=== PATIENT | female | born 1975 | race Caucasian/White ===

== ENCOUNTER → 2019-09-17 13:10 | Outpatient (BNVA) | payer MEDICAID, SELFPAY | PROVIDERS: Family Provider Family Medicine; PCP Family Medicine; Visit Provider Nurse Practitioner Psychiatric/Mental Health | DX: F33.2 Major depressive disorder, recurrent severe without psychotic features (principal); F41.1 Generalized anxiety disorder; F43.12 Post-traumatic stress disorder, chronic; F42.4 Excoriation (skin-picking) disorder; F42.9 Obsessive-compulsive disorder, unspecified | CPT/HCPCS: 99214 ==

== ENCOUNTER → 2019-10-16 14:43 | Outpatient (BNVA) | payer MEDICAID, SELFPAY | PROVIDERS: Family Provider Family Medicine; PCP Family Medicine; Visit Provider Nurse Practitioner Psychiatric/Mental Health | DX: F33.2 Major depressive disorder, recurrent severe without psychotic features (principal); F41.1 Generalized anxiety disorder; F43.12 Post-traumatic stress disorder, chronic; F42.4 Excoriation (skin-picking) disorder; F42.9 Obsessive-compulsive disorder, unspecified | CPT/HCPCS: 99214 ==

== ENCOUNTER → 2019-10-21 13:38 | Outpatient (BNVA) | payer MEDICAID, SELFPAY | PROVIDERS: Family Provider Family Medicine; PCP Family Medicine; Visit Provider Counselor Professional | DX: F42.9 Obsessive-compulsive disorder, unspecified (principal); F43.12 Post-traumatic stress disorder, chronic; F41.1 Generalized anxiety disorder; F33.2 Major depressive disorder, recurrent severe without psychotic features; F42.4 Excoriation (skin-picking) disorder | CPT/HCPCS: 90834 ==

== ENCOUNTER → 2019-11-13 08:20 | Outpatient (BNVA) | payer MEDICAID, SELFPAY | PROVIDERS: Family Provider Family Medicine; PCP Family Medicine; Visit Provider Nurse Practitioner Psychiatric/Mental Health | DX: F33.2 Major depressive disorder, recurrent severe without psychotic features (principal); F41.1 Generalized anxiety disorder; F43.12 Post-traumatic stress disorder, chronic; F42.4 Excoriation (skin-picking) disorder; F42.9 Obsessive-compulsive disorder, unspecified | CPT/HCPCS: 99214 ==

== ENCOUNTER → 2019-11-27 11:54 | Outpatient (BNVA) | payer MEDICAID, SELFPAY | PROVIDERS: Family Provider Family Medicine; PCP Family Medicine; Visit Provider Counselor Professional | DX: F42.9 Obsessive-compulsive disorder, unspecified (principal); F42.4 Excoriation (skin-picking) disorder; F43.12 Post-traumatic stress disorder, chronic; F41.1 Generalized anxiety disorder; F33.2 Major depressive disorder, recurrent severe without psychotic features | CPT/HCPCS: 90834 ==

== ENCOUNTER → 2019-12-04 08:18 | Outpatient (BNVA) | payer MEDICAID, SELFPAY | PROVIDERS: Family Provider Family Medicine; PCP Family Medicine; Visit Provider Nurse Practitioner Psychiatric/Mental Health | DX: F33.2 Major depressive disorder, recurrent severe without psychotic features (principal); F41.1 Generalized anxiety disorder; F43.12 Post-traumatic stress disorder, chronic; F42.4 Excoriation (skin-picking) disorder; F42.9 Obsessive-compulsive disorder, unspecified | CPT/HCPCS: 99214 ==

== ENCOUNTER → 2019-12-08 08:18 | Outpatient (BNVA) | payer MEDICAID, SELFPAY | PROVIDERS: Family Provider Family Medicine; PCP Family Medicine; Visit Provider Counselor Professional | DX: F42.9 Obsessive-compulsive disorder, unspecified (principal); F42.4 Excoriation (skin-picking) disorder; F43.12 Post-traumatic stress disorder, chronic; F41.1 Generalized anxiety disorder; F33.2 Major depressive disorder, recurrent severe without psychotic features | CPT/HCPCS: 90834 ==

== ENCOUNTER → 2020-02-04 07:32 | Outpatient (BNVA) | payer MEDICAID, SELFPAY | PROVIDERS: Family Provider Family Medicine; PCP Family Medicine; Visit Provider Nurse Practitioner Psychiatric/Mental Health | DX: F33.2 Major depressive disorder, recurrent severe without psychotic features (principal); F41.1 Generalized anxiety disorder; F43.12 Post-traumatic stress disorder, chronic; F42.4 Excoriation (skin-picking) disorder; F42.9 Obsessive-compulsive disorder, unspecified | CPT/HCPCS: 99214 ==

== ENCOUNTER → 2020-02-08 08:14 | Outpatient (BNVA) | payer MEDICAID, SELFPAY | PROVIDERS: Family Provider Family Medicine; PCP Family Medicine; Visit Provider Counselor Professional | DX: F42.9 Obsessive-compulsive disorder, unspecified (principal); F42.4 Excoriation (skin-picking) disorder; F33.2 Major depressive disorder, recurrent severe without psychotic features; F41.1 Generalized anxiety disorder; F43.12 Post-traumatic stress disorder, chronic | CPT/HCPCS: 90834 ==

== ENCOUNTER → 2020-03-03 14:00 | Outpatient (BNVA) | payer MEDICAID, SELFPAY | PROVIDERS: Family Provider Family Medicine; PCP Family Medicine; Visit Provider Counselor Professional | DX: F42.9 Obsessive-compulsive disorder, unspecified (principal); F42.4 Excoriation (skin-picking) disorder; F43.12 Post-traumatic stress disorder, chronic; F41.1 Generalized anxiety disorder; F33.2 Major depressive disorder, recurrent severe without psychotic features | CPT/HCPCS: 90834 ==

== ENCOUNTER → 2020-03-07 07:41 | Outpatient (BNVA) | payer MEDICAID, SELFPAY | PROVIDERS: Family Provider Family Medicine; PCP Family Medicine; Visit Provider Nurse Practitioner Psychiatric/Mental Health | DX: F42.9 Obsessive-compulsive disorder, unspecified (principal); F43.12 Post-traumatic stress disorder, chronic; F33.2 Major depressive disorder, recurrent severe without psychotic features; F41.1 Generalized anxiety disorder; F42.4 Excoriation (skin-picking) disorder | CPT/HCPCS: 99214 ==

== ENCOUNTER → 2020-03-10 08:53 | Outpatient (BNVA) | payer MEDICAID, SELFPAY | PROVIDERS: Family Provider Family Medicine; PCP Family Medicine; Visit Provider Counselor Professional | DX: F33.2 Major depressive disorder, recurrent severe without psychotic features (principal); F41.1 Generalized anxiety disorder; F43.12 Post-traumatic stress disorder, chronic; F42.4 Excoriation (skin-picking) disorder; F42.9 Obsessive-compulsive disorder, unspecified | CPT/HCPCS: 90834 ==

== ENCOUNTER → 2020-03-31 08:28 | Outpatient (BNVA) | payer MEDICAID, SELFPAY | PROVIDERS: Family Provider Family Medicine; PCP Family Medicine; Visit Provider Nurse Practitioner Psychiatric/Mental Health | DX: F33.2 Major depressive disorder, recurrent severe without psychotic features (principal); F41.1 Generalized anxiety disorder; F43.12 Post-traumatic stress disorder, chronic; F42.4 Excoriation (skin-picking) disorder; F42.9 Obsessive-compulsive disorder, unspecified | CPT/HCPCS: 99214 ==

== ENCOUNTER → 2020-04-11 10:19 | Outpatient (BNVA) | payer MEDICAID, SELFPAY | PROVIDERS: Family Provider Family Medicine; PCP Family Medicine; Visit Provider Counselor Professional | DX: F42.9 Obsessive-compulsive disorder, unspecified (principal); F42.4 Excoriation (skin-picking) disorder; F43.12 Post-traumatic stress disorder, chronic; F41.1 Generalized anxiety disorder; F33.2 Major depressive disorder, recurrent severe without psychotic features | CPT/HCPCS: 90834 ==

== ENCOUNTER → 2020-05-12 07:44 | Outpatient (BNVA) | payer MEDICAID, SELFPAY | PROVIDERS: Family Provider Family Medicine; PCP Family Medicine; Visit Provider Counselor Professional | DX: F42.9 Obsessive-compulsive disorder, unspecified (principal); F42.4 Excoriation (skin-picking) disorder; F43.12 Post-traumatic stress disorder, chronic; F41.1 Generalized anxiety disorder; F33.2 Major depressive disorder, recurrent severe without psychotic features | CPT/HCPCS: 90834 ==

== ENCOUNTER → 2020-05-17 13:19 | Outpatient (BNVA) | payer OTHER, SELFPAY | PROVIDERS: Family Provider Family Medicine; PCP Family Medicine; Visit Provider Nurse Practitioner Psychiatric/Mental Health | DX: F33.2 Major depressive disorder, recurrent severe without psychotic features (principal); Z79.899 Other long term (current) drug therapy | CPT/HCPCS: 80061; 83036 ==

== ENCOUNTER → 2020-05-19 08:12 | Outpatient (BNVA) | payer MEDICAID, SELFPAY ==
[2020-05-18 09:33] VITALS: BP 109/69; BMI 44.5
== END ==
PROVIDERS: Family Provider Family Medicine; PCP Family Medicine; Visit Provider Nurse Practitioner Psychiatric/Mental Health
DX: F33.2 Major depressive disorder, recurrent severe without psychotic features (principal); F41.1 Generalized anxiety disorder; F42.4 Excoriation (skin-picking) disorder; F42.9 Obsessive-compulsive disorder, unspecified; F43.12 Post-traumatic stress disorder, chronic
CPT/HCPCS: 99214

== ENCOUNTER → 2020-06-30 08:18 | Outpatient (BNVA) | payer MEDICAID, SELFPAY ==
[2020-05-18 09:33] VITALS: BP 109/69; BMI 44.5
== END ==
PROVIDERS: Family Provider Family Medicine; PCP Family Medicine; Visit Provider Nurse Practitioner Psychiatric/Mental Health
DX: F33.2 Major depressive disorder, recurrent severe without psychotic features (principal); F41.1 Generalized anxiety disorder; F43.12 Post-traumatic stress disorder, chronic; F42.4 Excoriation (skin-picking) disorder; F42.9 Obsessive-compulsive disorder, unspecified
CPT/HCPCS: 99214

== ENCOUNTER → 2020-07-28 07:49 | Outpatient (BNVA) | payer MEDICAID, SELFPAY ==
[2020-05-18 09:33] VITALS: BP 109/69; BMI 44.5
== END ==
PROVIDERS: Family Provider Family Medicine; PCP Family Medicine; Visit Provider Counselor Professional
DX: F42.9 Obsessive-compulsive disorder, unspecified (principal); F43.12 Post-traumatic stress disorder, chronic; F41.1 Generalized anxiety disorder; F33.2 Major depressive disorder, recurrent severe without psychotic features
CPT/HCPCS: 90834

== ENCOUNTER → 2020-07-29 09:04 | Outpatient (BNVA) | payer MEDICAID, SELFPAY ==
[2020-05-18 09:33] VITALS: BP 109/69; BMI 44.5
== END ==
PROVIDERS: Family Provider Family Medicine; PCP Family Medicine; Visit Provider Nurse Practitioner Psychiatric/Mental Health
DX: F33.2 Major depressive disorder, recurrent severe without psychotic features (principal); F42.9 Obsessive-compulsive disorder, unspecified; F43.12 Post-traumatic stress disorder, chronic; F42.4 Excoriation (skin-picking) disorder; F41.1 Generalized anxiety disorder
CPT/HCPCS: 99213

== ENCOUNTER → 2020-09-01 10:12 | Outpatient (BNVA) | payer MEDICAID, SELFPAY ==
[2020-05-18 09:33] VITALS: BP 109/69; BMI 44.5
== END ==
PROVIDERS: Family Provider Family Medicine; PCP Family Medicine; Visit Provider Nurse Practitioner Psychiatric/Mental Health
DX: F33.2 Major depressive disorder, recurrent severe without psychotic features (principal); F42.9 Obsessive-compulsive disorder, unspecified; F43.12 Post-traumatic stress disorder, chronic; F42.4 Excoriation (skin-picking) disorder; F41.1 Generalized anxiety disorder
CPT/HCPCS: 99213

== ENCOUNTER → 2020-09-02 09:38 | Outpatient (BNVA) | payer MEDICAID, SELFPAY ==
[2020-05-18 09:33] VITALS: BP 109/69; BMI 44.5
== END ==
PROVIDERS: Family Provider Family Medicine; PCP Family Medicine; Visit Provider Counselor Professional
DX: F42.9 Obsessive-compulsive disorder, unspecified (principal); F42.4 Excoriation (skin-picking) disorder; F43.12 Post-traumatic stress disorder, chronic; F41.1 Generalized anxiety disorder; F33.2 Major depressive disorder, recurrent severe without psychotic features
CPT/HCPCS: 90834

== ENCOUNTER → 2020-10-06 07:59 | Outpatient (BNVA) | payer MEDICAID, SELFPAY ==
[2020-05-18 09:33] VITALS: BP 109/69; BMI 44.5
== END ==
PROVIDERS: Family Provider Family Medicine; PCP Family Medicine; Visit Provider Nurse Practitioner Psychiatric/Mental Health
DX: F33.2 Major depressive disorder, recurrent severe without psychotic features (principal); F42.9 Obsessive-compulsive disorder, unspecified; F43.12 Post-traumatic stress disorder, chronic; F42.4 Excoriation (skin-picking) disorder; F41.1 Generalized anxiety disorder
CPT/HCPCS: 99214

== ENCOUNTER → 2020-10-13 14:56 | Outpatient (BNVA) | payer MEDICAID, SELFPAY ==
[2020-05-18 09:33] VITALS: BP 109/69; BMI 44.5
== END ==
PROVIDERS: Family Provider Family Medicine; PCP Family Medicine; Visit Provider Counselor Professional
DX: F42.9 Obsessive-compulsive disorder, unspecified (principal); F42.4 Excoriation (skin-picking) disorder; F43.12 Post-traumatic stress disorder, chronic; F41.1 Generalized anxiety disorder; F33.2 Major depressive disorder, recurrent severe without psychotic features
CPT/HCPCS: 90834

== ENCOUNTER → 2020-10-20 12:43 | Outpatient (BNVA) | payer MEDICAID, SELFPAY ==
[2020-05-18 09:33] VITALS: BP 109/69; BMI 44.5
== END ==
PROVIDERS: Family Provider Family Medicine; PCP Family Medicine; Visit Provider Counselor Professional
DX: F42.9 Obsessive-compulsive disorder, unspecified (principal); F42.4 Excoriation (skin-picking) disorder; F43.12 Post-traumatic stress disorder, chronic; F41.1 Generalized anxiety disorder; F33.2 Major depressive disorder, recurrent severe without psychotic features
CPT/HCPCS: 90834

== ENCOUNTER → 2020-10-27 14:47 | Outpatient (BNVA) | payer MEDICAID, SELFPAY ==
[2020-05-18 09:33] VITALS: BP 109/69; BMI 44.5
== END ==
PROVIDERS: Family Provider Family Medicine; PCP Family Medicine; Visit Provider Counselor Professional
DX: F42.9 Obsessive-compulsive disorder, unspecified (principal); F43.12 Post-traumatic stress disorder, chronic; F41.1 Generalized anxiety disorder; F33.2 Major depressive disorder, recurrent severe without psychotic features
CPT/HCPCS: 90834

== ENCOUNTER → 2020-11-10 13:42 | Outpatient (BNVA) | payer MEDICAID, SELFPAY ==
[2020-05-18 09:33] VITALS: BP 109/69; BMI 44.5
== END ==
PROVIDERS: Family Provider Family Medicine; PCP Family Medicine; Visit Provider Counselor Professional
DX: F42.9 Obsessive-compulsive disorder, unspecified (principal); F42.4 Excoriation (skin-picking) disorder; F43.12 Post-traumatic stress disorder, chronic; F41.1 Generalized anxiety disorder; F33.2 Major depressive disorder, recurrent severe without psychotic features
CPT/HCPCS: 90834

== ENCOUNTER → 2020-11-17 13:49 | Outpatient (BNVA) | payer MEDICAID, SELFPAY ==
[2020-05-18 09:33] VITALS: BP 109/69; BMI 44.5
== END ==
PROVIDERS: Family Provider Family Medicine; PCP Family Medicine; Visit Provider Counselor Professional
DX: F42.9 Obsessive-compulsive disorder, unspecified (principal); F42.4 Excoriation (skin-picking) disorder; F43.12 Post-traumatic stress disorder, chronic; F41.1 Generalized anxiety disorder; F33.2 Major depressive disorder, recurrent severe without psychotic features
CPT/HCPCS: 90834

== ENCOUNTER → 2020-11-21 07:43 | Outpatient (BNVA) | payer MEDICAID, SELFPAY ==
[2020-05-18 09:33] VITALS: BP 109/69; BMI 44.5
== END ==
PROVIDERS: Family Provider Family Medicine; PCP Family Medicine; Visit Provider Nurse Practitioner Psychiatric/Mental Health
DX: F33.2 Major depressive disorder, recurrent severe without psychotic features (principal); F42.9 Obsessive-compulsive disorder, unspecified; F43.12 Post-traumatic stress disorder, chronic; F42.4 Excoriation (skin-picking) disorder; F41.1 Generalized anxiety disorder
CPT/HCPCS: 99214

== ENCOUNTER → 2020-12-01 14:47 | Outpatient (BNVA) | payer MEDICAID, SELFPAY ==
[2020-05-18 09:33] VITALS: BP 109/69; BMI 44.5
== END ==
PROVIDERS: Family Provider Family Medicine; PCP Family Medicine; Visit Provider Counselor Professional
DX: F42.9 Obsessive-compulsive disorder, unspecified (principal); F42.4 Excoriation (skin-picking) disorder
CPT/HCPCS: 90834

== ENCOUNTER → 2020-12-16 12:42 | Outpatient (BNVA) | payer MEDICAID, SELFPAY ==
[2020-05-18 09:33] VITALS: BP 109/69; BMI 44.5
== END ==
PROVIDERS: Family Provider Family Medicine; PCP Family Medicine; Visit Provider Counselor Professional
DX: F42.9 Obsessive-compulsive disorder, unspecified (principal); F42.4 Excoriation (skin-picking) disorder; F43.12 Post-traumatic stress disorder, chronic; F41.1 Generalized anxiety disorder; F33.2 Major depressive disorder, recurrent severe without psychotic features; F42.3 Hoarding disorder
CPT/HCPCS: 90834; 90839

== ENCOUNTER → 2020-12-20 08:07 | Outpatient (BNVA) | payer MEDICAID, SELFPAY ==
[2020-05-18 09:33] VITALS: BP 109/69; BMI 44.5
== END ==
PROVIDERS: Family Provider Family Medicine; PCP Family Medicine; Visit Provider Nurse Practitioner Psychiatric/Mental Health
DX: F33.2 Major depressive disorder, recurrent severe without psychotic features (principal); F42.4 Excoriation (skin-picking) disorder; F41.1 Generalized anxiety disorder; F43.12 Post-traumatic stress disorder, chronic; F42.9 Obsessive-compulsive disorder, unspecified
CPT/HCPCS: 99214

== ENCOUNTER → 2020-12-29 10:43 | Outpatient (BNVA) | payer MEDICAID, SELFPAY ==
[2020-05-18 09:33] VITALS: BP 109/69; BMI 44.5
== END ==
PROVIDERS: Family Provider Family Medicine; PCP Family Medicine; Visit Provider Counselor Professional
DX: F33.2 Major depressive disorder, recurrent severe without psychotic features (principal); F41.1 Generalized anxiety disorder; F43.12 Post-traumatic stress disorder, chronic; F42.4 Excoriation (skin-picking) disorder; F60.5 Obsessive-compulsive personality disorder
CPT/HCPCS: 90834

== ENCOUNTER → 2021-01-05 12:59 | Outpatient (BNVA) | payer MEDICAID, SELFPAY ==
[2020-05-18 09:33] VITALS: BP 109/69; BMI 44.5
== END ==
PROVIDERS: Family Provider Family Medicine; PCP Family Medicine; Visit Provider Counselor Professional
DX: F42.9 Obsessive-compulsive disorder, unspecified (principal); F42.4 Excoriation (skin-picking) disorder; F43.12 Post-traumatic stress disorder, chronic; F41.1 Generalized anxiety disorder; F33.2 Major depressive disorder, recurrent severe without psychotic features
CPT/HCPCS: 90834

== ENCOUNTER → 2021-01-13 08:48 | Outpatient (BNVA) | payer MEDICAID, SELFPAY ==
[2020-05-18 09:33] VITALS: BP 109/69; BMI 44.5
== END ==
PROVIDERS: Family Provider Family Medicine; PCP Family Medicine; Visit Provider Counselor Professional
DX: F42.9 Obsessive-compulsive disorder, unspecified (principal); F42.4 Excoriation (skin-picking) disorder; F43.12 Post-traumatic stress disorder, chronic; F41.1 Generalized anxiety disorder; F33.2 Major depressive disorder, recurrent severe without psychotic features
CPT/HCPCS: 90834

== ENCOUNTER → 2021-01-18 08:04 | Outpatient (BNVA) | payer MEDICAID, SELFPAY ==
[2020-05-18 09:33] VITALS: BP 109/69; BMI 44.5
== END ==
PROVIDERS: Family Provider Family Medicine; PCP Family Medicine; Visit Provider Nurse Practitioner Psychiatric/Mental Health
DX: F33.2 Major depressive disorder, recurrent severe without psychotic features (principal); F42.4 Excoriation (skin-picking) disorder; F42.9 Obsessive-compulsive disorder, unspecified; F43.12 Post-traumatic stress disorder, chronic; F41.1 Generalized anxiety disorder
CPT/HCPCS: 99214

== ENCOUNTER → 2021-01-19 07:44 | Outpatient (BNVA) | payer MEDICAID, SELFPAY ==
[2020-05-18 09:33] VITALS: BP 109/69; BMI 44.5
== END ==
PROVIDERS: Family Provider Family Medicine; PCP Family Medicine; Visit Provider Counselor Professional
DX: F42.9 Obsessive-compulsive disorder, unspecified (principal); F42.4 Excoriation (skin-picking) disorder; F43.12 Post-traumatic stress disorder, chronic; F41.1 Generalized anxiety disorder; F33.2 Major depressive disorder, recurrent severe without psychotic features
CPT/HCPCS: 90834

== ENCOUNTER → 2021-03-03 08:04 | Outpatient (BNVA) | payer MEDICAID, SELFPAY ==
[2020-05-18 09:33] VITALS: BP 109/69; BMI 44.5
== END ==
PROVIDERS: Family Provider Family Medicine; PCP Family Medicine; Visit Provider Counselor Professional
DX: F42.9 Obsessive-compulsive disorder, unspecified (principal); F42.4 Excoriation (skin-picking) disorder; F43.12 Post-traumatic stress disorder, chronic; F41.1 Generalized anxiety disorder; F33.2 Major depressive disorder, recurrent severe without psychotic features
CPT/HCPCS: 90834

== ENCOUNTER → 2021-03-20 07:07 | Outpatient (BNVA) | payer MEDICAID, SELFPAY ==
[2020-05-18 09:33] VITALS: BP 109/69; BMI 44.5
== END ==
PROVIDERS: Family Provider Family Medicine; PCP Family Medicine; Visit Provider Nurse Practitioner Psychiatric/Mental Health
DX: F33.2 Major depressive disorder, recurrent severe without psychotic features (principal); F42.9 Obsessive-compulsive disorder, unspecified; F43.12 Post-traumatic stress disorder, chronic; F42.4 Excoriation (skin-picking) disorder; Z79.899 Other long term (current) drug therapy; F41.1 Generalized anxiety disorder
CPT/HCPCS: 99214

== ENCOUNTER → 2021-04-21 09:46 | Outpatient (BNVA) | payer MEDICAID, SELFPAY ==
[2020-05-18 09:33] VITALS: BP 109/69; BMI 44.5
== END ==
PROVIDERS: Family Provider Family Medicine; PCP Family Medicine; Visit Provider Counselor Professional
DX: F33.2 Major depressive disorder, recurrent severe without psychotic features (principal); F41.1 Generalized anxiety disorder; F43.12 Post-traumatic stress disorder, chronic; F42.4 Excoriation (skin-picking) disorder; F42.9 Obsessive-compulsive disorder, unspecified
CPT/HCPCS: 90834

== ENCOUNTER → 2021-04-27 08:20 | Outpatient (BNVA) | payer MEDICAID, SELFPAY ==
[2020-05-18 09:33] VITALS: BP 109/69; BMI 44.5
== END ==
PROVIDERS: Family Provider Family Medicine; PCP Family Medicine; Visit Provider Nurse Practitioner Psychiatric/Mental Health
DX: F33.2 Major depressive disorder, recurrent severe without psychotic features (principal); F42.9 Obsessive-compulsive disorder, unspecified; F43.12 Post-traumatic stress disorder, chronic; F42.4 Excoriation (skin-picking) disorder; Z79.899 Other long term (current) drug therapy; F41.1 Generalized anxiety disorder
CPT/HCPCS: 99214

== ENCOUNTER → 2021-05-05 09:39 | Outpatient (BNVA) | payer MEDICAID, SELFPAY ==
[2020-05-18 09:33] VITALS: BP 109/69; BMI 44.5
== END ==
PROVIDERS: Family Provider Family Medicine; PCP Family Medicine; Visit Provider Counselor Professional
DX: F42.9 Obsessive-compulsive disorder, unspecified (principal); F42.4 Excoriation (skin-picking) disorder; F43.12 Post-traumatic stress disorder, chronic; F41.1 Generalized anxiety disorder; F33.2 Major depressive disorder, recurrent severe without psychotic features
CPT/HCPCS: 90834; 80053; 80061; 83036

== ENCOUNTER → 2021-05-31 13:52 | Outpatient (BNVA) | payer MEDICAID, SELFPAY ==
[2021-05-08 11:45] VITALS: BP 105/72; BMI 46.3
== END ==
PROVIDERS: Family Provider Family Medicine; PCP Family Medicine; Visit Provider Counselor Mental Health
DX: F42.9 Obsessive-compulsive disorder, unspecified (principal); F33.2 Major depressive disorder, recurrent severe without psychotic features; F41.1 Generalized anxiety disorder; F42.4 Excoriation (skin-picking) disorder; F43.12 Post-traumatic stress disorder, chronic
CPT/HCPCS: 90834

== ENCOUNTER → 2021-06-01 09:07 | Outpatient (BNVA) | payer MEDICAID, SELFPAY ==
[2021-05-08 11:45] VITALS: BP 105/72; BMI 46.3
== END ==
PROVIDERS: Family Provider Family Medicine; PCP Family Medicine; Visit Provider Nurse Practitioner Psychiatric/Mental Health
DX: F33.2 Major depressive disorder, recurrent severe without psychotic features (principal); F42.9 Obsessive-compulsive disorder, unspecified; F43.12 Post-traumatic stress disorder, chronic; F42.4 Excoriation (skin-picking) disorder; Z79.899 Other long term (current) drug therapy; F41.1 Generalized anxiety disorder
CPT/HCPCS: 99214

== ENCOUNTER → 2021-06-19 14:48 | Outpatient (BNVA) | payer MEDICAID, SELFPAY ==
[2021-05-08 11:45] VITALS: BP 105/72; BMI 46.3
== END ==
PROVIDERS: Family Provider Family Medicine; PCP Family Medicine; Visit Provider Counselor Mental Health
DX: F42.9 Obsessive-compulsive disorder, unspecified (principal); F33.2 Major depressive disorder, recurrent severe without psychotic features; F41.1 Generalized anxiety disorder; F42.4 Excoriation (skin-picking) disorder; F43.12 Post-traumatic stress disorder, chronic
CPT/HCPCS: 90834

== ENCOUNTER → 2021-06-29 07:45 | Outpatient (BNVA) | payer MEDICAID, SELFPAY ==
[2021-05-08 11:45] VITALS: BP 105/72; BMI 46.3
== END ==
PROVIDERS: Family Provider Family Medicine; PCP Family Medicine; Visit Provider Nurse Practitioner Psychiatric/Mental Health
DX: F33.2 Major depressive disorder, recurrent severe without psychotic features (principal); F42.9 Obsessive-compulsive disorder, unspecified; F43.12 Post-traumatic stress disorder, chronic; F42.4 Excoriation (skin-picking) disorder; Z79.899 Other long term (current) drug therapy
CPT/HCPCS: 99214

== ENCOUNTER → 2021-07-03 13:48 | Outpatient (BNVA) | payer MEDICAID, SELFPAY ==
[2021-05-08 11:45] VITALS: BP 105/72; BMI 46.3
== END ==
PROVIDERS: Family Provider Family Medicine; PCP Family Medicine; Visit Provider Counselor Mental Health
DX: F42.9 Obsessive-compulsive disorder, unspecified (principal); F42.4 Excoriation (skin-picking) disorder; F43.12 Post-traumatic stress disorder, chronic; F41.1 Generalized anxiety disorder; F33.2 Major depressive disorder, recurrent severe without psychotic features
CPT/HCPCS: 90834

== ENCOUNTER → 2021-07-17 13:01 | Outpatient (BNVA) | payer MEDICAID, SELFPAY ==
[2021-05-08 11:45] VITALS: BP 105/72; BMI 46.3
== END ==
PROVIDERS: Family Provider Family Medicine; PCP Family Medicine; Visit Provider Counselor Mental Health
DX: F42.9 Obsessive-compulsive disorder, unspecified (principal); F42.4 Excoriation (skin-picking) disorder; F43.12 Post-traumatic stress disorder, chronic; F41.1 Generalized anxiety disorder; F33.2 Major depressive disorder, recurrent severe without psychotic features
CPT/HCPCS: 90834

== ENCOUNTER → 2021-07-27 08:42 | Outpatient (BNVA) | payer MEDICAID, SELFPAY ==
[2021-05-08 11:45] VITALS: BP 105/72; BMI 46.3
== END ==
PROVIDERS: Family Provider Family Medicine; PCP Family Medicine; Visit Provider Nurse Practitioner Psychiatric/Mental Health
DX: F33.2 Major depressive disorder, recurrent severe without psychotic features (principal); F42.9 Obsessive-compulsive disorder, unspecified; F43.12 Post-traumatic stress disorder, chronic; F42.4 Excoriation (skin-picking) disorder; Z79.899 Other long term (current) drug therapy; F41.1 Generalized anxiety disorder
CPT/HCPCS: 99214

== ENCOUNTER → 2021-08-31 07:45 | Outpatient (BNVA) | payer MEDICAID, SELFPAY ==
[2021-05-08 11:45] VITALS: BP 105/72; BMI 46.3
== END ==
PROVIDERS: Family Provider Family Medicine; PCP Family Medicine; Visit Provider Nurse Practitioner Psychiatric/Mental Health
DX: F33.2 Major depressive disorder, recurrent severe without psychotic features (principal); F42.9 Obsessive-compulsive disorder, unspecified; F43.12 Post-traumatic stress disorder, chronic; F42.4 Excoriation (skin-picking) disorder; Z79.899 Other long term (current) drug therapy; F41.1 Generalized anxiety disorder
CPT/HCPCS: 99214

== ENCOUNTER → 2021-09-01 13:56 | Outpatient (BNVA) | payer MEDICAID, SELFPAY ==
[2021-05-08 11:45] VITALS: BP 105/72; BMI 46.3
== END ==
PROVIDERS: Family Provider Family Medicine; PCP Family Medicine; Visit Provider Counselor Mental Health
DX: F42.9 Obsessive-compulsive disorder, unspecified (principal); F42.4 Excoriation (skin-picking) disorder; F43.12 Post-traumatic stress disorder, chronic; F41.1 Generalized anxiety disorder; F33.2 Major depressive disorder, recurrent severe without psychotic features
CPT/HCPCS: 90837; 90834

== ENCOUNTER → 2021-09-15 10:17 | Outpatient (BNVA) | payer MEDICAID, SELFPAY ==
[2021-05-08 11:45] VITALS: BP 105/72; BMI 46.3
== END ==
PROVIDERS: Family Provider Family Medicine; PCP Family Medicine; Visit Provider Counselor Mental Health
DX: F43.12 Post-traumatic stress disorder, chronic (principal); F41.1 Generalized anxiety disorder; F33.2 Major depressive disorder, recurrent severe without psychotic features
CPT/HCPCS: 90832

== ENCOUNTER → 2021-09-27 07:22 | Outpatient (BNVA) | payer MEDICAID, SELFPAY ==
[2021-05-08 11:45] VITALS: BP 105/72; BMI 46.3
== END ==
PROVIDERS: Family Provider Family Medicine; PCP Family Medicine; Visit Provider Nurse Practitioner Psychiatric/Mental Health
DX: F42.9 Obsessive-compulsive disorder, unspecified (principal); F33.2 Major depressive disorder, recurrent severe without psychotic features; F43.12 Post-traumatic stress disorder, chronic; F41.1 Generalized anxiety disorder; Z79.899 Other long term (current) drug therapy; F42.4 Excoriation (skin-picking) disorder
CPT/HCPCS: 99214

== ENCOUNTER → 2021-10-05 11:52 | Outpatient (BNVA) | payer MEDICAID, SELFPAY ==
[2021-05-08 11:45] VITALS: BP 105/72; BMI 46.3
== END ==
PROVIDERS: Family Provider Family Medicine; PCP Family Medicine; Visit Provider Counselor Mental Health
DX: F42.9 Obsessive-compulsive disorder, unspecified (principal); F33.2 Major depressive disorder, recurrent severe without psychotic features; F41.1 Generalized anxiety disorder; F43.12 Post-traumatic stress disorder, chronic
CPT/HCPCS: 90834

== ENCOUNTER → 2021-10-19 09:54 | Outpatient (BNVA) | payer MEDICAID, SELFPAY ==
[2021-05-08 11:45] VITALS: BP 105/72; BMI 46.3
== END ==
PROVIDERS: Family Provider Family Medicine; PCP Family Medicine; Visit Provider Counselor Mental Health
DX: F33.2 Major depressive disorder, recurrent severe without psychotic features (principal); F41.1 Generalized anxiety disorder; F43.12 Post-traumatic stress disorder, chronic; F42.9 Obsessive-compulsive disorder, unspecified
CPT/HCPCS: 90834

== ENCOUNTER → 2021-10-25 10:09 | Outpatient (BNVA) | payer MEDICAID, SELFPAY ==
[2021-05-08 11:45] VITALS: BP 105/72; BMI 46.3
== END ==
PROVIDERS: Family Provider Family Medicine; PCP Family Medicine; Visit Provider Nurse Practitioner Psychiatric/Mental Health
DX: F33.2 Major depressive disorder, recurrent severe without psychotic features (principal); F42.9 Obsessive-compulsive disorder, unspecified; F43.12 Post-traumatic stress disorder, chronic
CPT/HCPCS: 99214

== ENCOUNTER → 2021-10-26 12:06 | Outpatient (BNVA) | payer MEDICAID, SELFPAY ==
[2021-05-08 11:45] VITALS: BP 105/72; BMI 46.3
== END ==
PROVIDERS: Family Provider Family Medicine; PCP Family Medicine; Visit Provider Counselor Mental Health
DX: F42.9 Obsessive-compulsive disorder, unspecified (principal); F43.12 Post-traumatic stress disorder, chronic; F41.1 Generalized anxiety disorder; F33.2 Major depressive disorder, recurrent severe without psychotic features
CPT/HCPCS: 90834

== ENCOUNTER → 2021-11-10 13:49 | Outpatient (BNVA) | payer MEDICAID, SELFPAY ==
[2021-05-08 11:45] VITALS: BP 105/72; BMI 46.3
== END ==
PROVIDERS: Family Provider Family Medicine; PCP Family Medicine; Visit Provider Counselor Mental Health
DX: F42.9 Obsessive-compulsive disorder, unspecified (principal); F33.2 Major depressive disorder, recurrent severe without psychotic features; F41.1 Generalized anxiety disorder; F43.12 Post-traumatic stress disorder, chronic
CPT/HCPCS: 90834

== ENCOUNTER → 2021-11-22 14:34 | Outpatient (BNVA) | payer MEDICAID, SELFPAY ==
[2021-05-08 11:45] VITALS: BP 105/72; BMI 46.3
== END ==
PROVIDERS: Family Provider Family Medicine; PCP Family Medicine; Visit Provider Nurse Practitioner Psychiatric/Mental Health
DX: F33.2 Major depressive disorder, recurrent severe without psychotic features (principal); F42.9 Obsessive-compulsive disorder, unspecified; F43.12 Post-traumatic stress disorder, chronic; F42.4 Excoriation (skin-picking) disorder; Z79.899 Other long term (current) drug therapy
CPT/HCPCS: 99214

== ENCOUNTER 2023-01-21 10:24 | Emergency (ER) | payer MEDICAID, SELFPAY ==
[2021-05-08 11:45] VITALS: BP 105/72; BMI 46.3
[2023-01-21 11:03] VITALS: BP 91/66; PULSE 110; RESP 18; TEMP 36.6; O2SAT 98
--- NOTE | 2023-01-21 12:11 | ED_ITS ---
HPI - Recheck/Abnormal Lab/Rx General: Chief Complaint: Recheck/Abnormal Lab/Rx Stated Complaint: Low bp sent from [facility] Time Seen by Provider: 01/21/23 11:48 Source: patient Limitations: no limitations History of Present Illness: This 47-year-old female was sent by [facility] for evaluation of low blood pressure. She had gone for a scheduled appointment this morning and when they checked her vital signs, they realized her blood pressure was low. Patient complains of intermittent dizziness though this is not new for her. She has no fever, chest pain, cough, dysuria or any other signs of systemic illness. Patient is clinically stable, alert and oriented and is able to answer questions appropriately. Review of Systems Const: Denies: chills, body aches or change in appetite Eyes: Denies: change in vision or eye discharge ENMT: Denies: throat pain, dental pain or nasal discharge Card: Denies: chest pain or lightheadedness : Denies: dysuria Musc: Denies: neck pain or back pain Neuro: Reports: dizziness (Intermittent); Denies: headache(s) or weakness in extremities Pérez/Lymph: Denies: easy bruising All/Imm: Denies: urticaria, tongue swelling or facial swelling PFSH ED PFSH: Medical History (Updated 01/21/23 @ 15:46 by Alice Ervin MD) Borderline personality disorder Chronic post-traumatic stress disorder Excoriation (skin-picking) disorder Generalized anxiety disorder Major depressive disorder, recurrent severe without psychotic features Obsessive-compulsive disorder with good or fair insight Family History Other CAD (coronary artery disease) Cancer Diabetes Hypertension Lung disease Social History Smoking and tobacco status: never smoked Second hand smoke exposure: No Alcohol intake: never Substance/Drug Use: never Adopted: No Caregiver/support person: No Lives independently: Yes Household members: none Housing: Manufactured/Mobile home Marital status: Marital status details: but for years Number of children: 2 Number of grandchildren: 0 Highest education level completed: Associate Degree: Occupational, Technical, Vocational Program service: No Current occupational status: disabled Current occupational exposures/hazards: No Pets and animals: Yes Pets & animals: dog(s) Leisure activites: music, reading and other Sexually active: No Do you think of yourself as: Straight/Heterosexual Current gender identity: Female Belkys/Rastafarian: None Special belkys needs: No Agree to transfusion: Yes Financial difficulty paying for basics: Not Very Hard Female Reproductive History: Para: 2 Spontaneous abortions: Yes Physical Exam Const: COMMON NORMALS: no acute distress, patient oriented x3, no limitations and alert HENMT: COMMON NORMALS: normocephalic HEAD & SCALP: normocephalic Eye: COMMON NORMALS: EOMs intact bilaterally Neck/C-Spine: COMMON NORMALS: full ROM and supple Chest: COMMONS NORMALS: normal inspection of the chest Resp: COMMON NORMALS: normal respiratory effort, No retractions, No use of accessory muscles and clear to auscultation bilaterally AUSCULTATION: clear to auscultation bilaterally Cardio: COMMON NORMALS: regular rate, regular rhythm and No murmurs present (Cardio) RATE: regular rate RHYTHM: regular rhythm GI: COMMON NORMALS: Normal to inspection, nondistended, normoactive bowel sounds present and non-tender : COMMON NORMALS: Yes no CVA tenderness BLADDER/KIDNEY EXAM: Yes no CVA tenderness Back/Pelvis: COMMON NORMALS: no CVA tenderness and no thoracic nor lumbar tenderness Extremity: GENERAL: Yes normal exam except as noted Neuro: COMMON NORMALS: patient oriented x3 and no focal motor deficits SENSORIUM/ORIENTATION: Yes alert Psych: COMMON NORMALS: mental status grossly normal and cooperative Course Vital Signs: Vital signs: Vital Signs Temperature 97.8 F 01/21/23 11:03 Pulse Rate 92 01/21/23 14:06 Respiratory Rate 18 01/21/23 11:03 Blood Pressure 113/72 01/21/23 14:06 Pulse Oximetry 96 01/21/23 14:06 Oxygen Delivery Me thod Room Air 01/21/23 11:03 MDM - Recheck/Abnormal Lab/Rx Medical Decision Making Medical decision making: History as above. Patient was not hypotensive in the ER though her blood pressure was on the soft side. Her systolic blood pressure was mainly in the 90s. After receiving IV fluids, blood pressure went up to the 110's. Throughout her stay, she was asymptomatic. Completed blood tests are unremarkable. There is nothing to suggest that patient is septic or has septic shock. Review of records shows that she is on metoprolol 12.5 mg twice a day for tachycardia and 40 mg of Lasix daily. In addition, she takes Percocet for pain. I believe the combination of all these medications will drop her blood pressure. She was advised to reduce the dose of Lasix from 40 mg daily to 20 mg daily. In addition, she should keep a daily log of her blood pressure readings and discuss these readings with her primary care physician who will adjust her medications accordingly. There is no indication to admit her at this time. Return instructions provided. Patient verbalized understanding and agrees with the plan. Lab Data 01/21/23 12:30 01/21/23 12:30 Laboratory Results WBC 7.2 10^3/uL (4.0-10.0) 01/21/23 12:30 RBC 4.44 10^6/uL (4.1-5.3) 01/21/23 12:30 Hgb 13.9 g/dL (11.5-15.3) 01/21/23 12:30 Hct 41.7 % (37.0-47.0) 01/21/23 12:30 MCV 93.9 fl (81-99) 01/21/23 12:30 MCH 31.3 pg (28.0-34.0) 01/21/23 12:30 MCHC 33.3 g/dL (30.0-36.0) 01/21/23 12:30 RDW 13.0 % (12.1-15.1) 01/21/23 12:30 Plt Count 173 10^3/cmm (130-400) 01/21/23 12:30 MPV 10.2 fL (7.4-10.4) 01/21/23 12:30 Neut % (Auto) 49.9 % 01/21/23 12:30 Lymph % (Auto) 41.3 % 01/21/23 12:30 Hubbard % (Auto) 6.8 % 01/21/23 12:30 Eos % (Auto) 1.4 % 01/21/23 12:30 Baso % (Auto) 0.3 % 01/21/23 12:30 Neut # (Auto) 3.62 10^3/uL (1.8-7.7) 01/21/23 12:30 Lymph # (Auto) 3.0 10^3/uL (0.8-4.8) 01/21/23 12:30 Hubbard # (Auto) 0.5 10^3/uL (0.2-0.9) 01/21/23 12:30 Eos # (Auto) 0.1 10^3/uL (0.0-0.8) 01/21/23 12:30 Baso # (Auto) 0.0 10^3/uL (0.0-0.1) 01/21/23 12:30 Nucleated RBC % (auto) 0 % 01/21/23 12:30 Nucleated RBCs # 0.0 /100WBC 01/21/23 12:30 Sodium 139 mmol/L (136-145) 01/21/23 12:30 Potassium 3.9 mmol/L (3.5-5.1) 01/21/23 12:30 Chloride 103 mmol/L (98-107) 01/21/23 12:30 Carbon Dioxide 27 mmol/L (22-29) 01/21/23 12:30 Anion Gap 12.9 (5-19) 01/21/23 12:30 BUN 9 mg/dL (6-20) 01/21/23 12:30 Creatinine 0.6 mg/dL (0.5-0.9) 01/21/23 12:30 GFR Calculation 107.2 mL/min (90-130) 01/21/23 12:30 Glucose 89 mg/dL (65-115) 01/21/23 12:30 Calculated Osmolality 286 mOsm/kg (285-295) 01/21/23 12:30 Calcium 8.7 mg/dL (8.5-10.5) 01/21/23 12:30 Total Bilirubin 0.2 mg/dL (0.15-1.2) 01/21/23 12:30 AST 24 U/L (0-32) 01/21/23 12:30 ALT 19 U/L (0-33) 01/21/23 12:30 Alkaline Phosphatase 158 U/L (35-105) H 01/21/23 12:30 Total Protein 6.6 g/dL (6.6-8.7) 01/21/23 12:30 Albumin 3.9 g/dL (3.5-5.2) 01/21/23 12:30 Globulin 2.7 g/dL (1.3-4.6) 01/21/23 12:30 Urine Color Yellow (Yellow) 01/21/23 12:40 Urine Appearance Clear (CLEAR) 01/21/23 12:40 Urine pH 6 (5-7) 01/21/23 12:40 Ur Specific [place] 1.010 (1.005-1.030) 01/21/23 12:40 Urine Protein Neg (Negative) 01/21/23 12:40 Urine Glucose (UA) Norm (Normal) 01/21/23 12:40 Urine Ketones Negative (Negative) 01/21/23 12:40 Urine Blood Neg (Negative) 01/21/23 12:40 Urine Nitrate Negative (Negative) 01/21/23 12:40 Urine Bilirubin Neg (Negative) 01/21/23 12:40 Urine Urobilinogen Norm mg/dL (Negative) 01/21/23 12:40 Ur Leukocyte Esterase Negative (Negative) 01/21/23 12:40 Discharge Plan Discharge Patient Disposition: Home Clinical Impression: Borderline blood pressure Condition: Stable Prescriptions: No Action gabapentin 600 mg tablet 600 mg PO BID cetirizine [All Day Allergy (cetirizine)] 10 mg tablet 10 mg PO DAILY diclofenac sodium 1 % gel 2 gm TOPICAL QID PRN (Reason: Pain) Rx Instructions: apply to single elbow, wrist or hand; for hand includes palm/fingers/back of hand tizanidine 4 mg capsule 4 mg PO TID PRN (Reason: Muscle Pain) potassium chloride 20 mEq tablet extended release 20 meq PO DAILY nystatin [Nystop] 100,000 unit/gram powder 1 applic TOPICAL QID calcium citrate-vitamin D3 [Calcium Citrate + D] 315 mg-5 mcg (200 unit) tablet 1 tab PO DAILY Collagen Plus Vitamin C 125-740 mg capsule 1 cap PO BID multivitamin Tablet 1 tab PO QAM biotin 10,000 mcg capsule 10,000 mcg PO BID pantoprazole 40 mg tablet,delayed release (DR/EC) 40 mg PO DAILY metoprolol tartrate 25 mg tablet 12.5 mg PO BID cyclobenzaprine 5 mg tablet 10 mg PO TID PRN (Reason: Muscle Pain) oxycodone-acetaminophen 10-325 mg tablet 1 tab PO TID PRN (Reason: Pain) alprazolam 1 mg tablet 1 mg PO TID PRN (Reason: Anxiety) Lasix 40 mg Tablet 40 mg PO DAILY acetylcysteine 600 mg capsule 600 mg PO BID PRN (Reason: as directed) Seroquel XR 400 mg tablet extended release 24 hr 400 mg PO QPM Rx Instructions: Take one tablet at 9 pm fluvoxamine 150 mg capsule,extended release 24hr 300 mg PO QAM Rx Instructions: Take two capsules every morning Discharge Orders: Discharge ED (Routine); Ordered 01/21/23 Ordered By: Alice Ervin Referrals: Ml Phillips DO [Primary Care Provider] - Discharge Diet: Usual diet Discharge Activity: Resume usual activity Patient Instructions: Opioid Safety, Pain Management Activity Restrictions/Additional Instructions: Because your blood pressure is soft, reduce the dose of Lasix you are taking from 40 mg daily to 20 mg daily. In addition, keep a daily log of your blood pressure readings and discuss the readings with your primary care physician who will adjust your blood pressure medications accordingly. Follow-up with your primary care physician in about 5 to 7 days for reevaluation. Return with new or worsening symptoms. Coding Level of Care Code ED Customer Service And Sales Consultant for Soniya Chacon
[2023-01-21 12:46] LABS: Add Urine Microscopic? NO; Charge for UA Resulting for Rev
[2023-01-21 12:47] LABS: Urine Appearance Clear (CLEAR); Urine Color Yellow (Yellow)
[2023-01-21 12:48] LABS: Basophils % 0.3 %; Eosinophils # 0.1 10^3/uL (0.0-0.8); Eosinophils % 1.4 %; Hematocrit 41.7 % (37.0-47.0); Hemoglobin 13.9 g/dL (11.5-15.3); Lymphocytes % 41.3 %; Mean Corpuscular HGB Conc 33.3 g/dL (30.0-36.0); Mean Corpuscular Hemoglobin 31.3 pg (28.0-34.0); Mean Corpuscular Volume 93.9 fl (81-99); Mean Platelet Volume 10.2 fL (7.4-10.4); Monocytes # 0.5 10^3/uL (0.2-0.9); Monocytes % 6.8 %; Neutrophils # 3.62 10^3/uL (1.8-7.7); Neutrophils % 49.9 %; Nucleated Red Blood Cells % 0 %; Platelet Count 173 10^3/cmm (130-400); Red Blood Count 4.44 10^6/uL (4.1-5.3); White Blood Count 7.2 10^3/uL (4.0-10.0)
[2023-01-21 12:48] LABS: Bilirubin Urine Neg (Negative); Blood Urine Neg (Negative); Glucose Urine UA Norm (Normal); Ketones Urine Negative (Negative); Leukocyte Esterase Urine Negative (Negative); Nitrate Urine Negative (Negative); Protein Urine Neg (Negative); Urobilinogen Urine Norm (Negative); pH Urine 6 (5-7)
[2023-01-21 13:06] LABS: Alanine Aminotransferase 19 U/L (0-33); Albumin Level 3.9 g/dL (3.5-5.2); Alkaline Phosphatase 158 U/L (35-105); Anion Gap 12.9 (5-19); Aspartate Amino Transferase 24 U/L (0-32); Blood Urea Nitrogen 9 mg/dL (6-20); Calcium 8.7 mg/dL (8.5-10.5); Carbon Dioxide 27 mmol/L (22-29); Chloride 103 mmol/L (98-107); Globulin 2.7 g/dL (1.3-4.6); Glomerular Filtration Rate 107.2 mL/min (90-130); Glucose 89 mg/dL (65-115); Osmolality Calculated 286 mOsm/kg (285-295); Potassium 3.9 mmol/L (3.5-5.1); Sodium 139 mmol/L (136-145); Total Bilirubin 0.2 mg/dL (0.15-1.2); Total Protein 6.6 g/dL (6.6-8.7)
[2023-01-21] MEDS: sodium chloride 0.9% 1,000 ML 999 ML IV (13:41)
[2023-01-21 14:06] VITALS: BP 113/72; PULSE 92; O2SAT 96
== END 2023-01-21 16:35 | disposition home or self-care (01) ==
PROVIDERS: Emergency Provider Family Medicine; PCP Family Medicine
DX: I95.89 Other hypotension (principal)
CPT/HCPCS: 36415; 80053; 81003; 85025; 99284; J7030

== ENCOUNTER 2025-04-24 11:15 | Emergency (ER) | payer MEDICAID, SELFPAY ==
[2024-06-01 11:50] VITALS: BP 116/83; BMI 35.1
--- OUTSIDE RECORDS SUMMARY | 2025-03-01 23:59 | XMS_ITS | Continuity of Care Document ---
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 Towel Distributor Name Role Phone [facility] Unavailable Unavailable Problems Problem Status Onset Date Problem Type Date of Resolution Comments Source Obesity (disorder) 5 Diagnosis Post-surgical malabsorption (disorder) 4 Diagnosis Anxiety (finding) Active Condition Backache (finding) Active Condition Body mass index 40+ - severely obese (finding) Resolved Condition Irritable colon (disorder) Active Condition Female urinary stress incontinence (finding) Active Condition Hyperlipidemia (disorder) Active Condition Hypertensive disorder, systemic arterial (disorder) Active Condition Metabolic syndrome X (disorder) Active Condition Depressive disorder (disorder) Active Condition Osteoarthritis (disorder) Active Condition Diabetes mellitus type 2 (disorder) Active Condition Chronic gastritis (disorder) Diagnosis Gastric ulcer (disorder) Diagnosis Duodenitis (disorder) Diagnosis Retained foreign body (disorder) Diagnosis History of - peptic ulcer (context-dependent category) Diagnosis Long-term current use of drug therapy (situation) Diagnosis Obese class II (finding) Diagnosis Essential hypertension (disorder) Diagnosis Hyperlipidemia (disorder) Diagnosis Irritable colon (disorder) Diagnosis Depressive disorder (disorder) Diagnosis Anxiety disorder (disorder) Diagnosis Metabolic syndrome X (disorder) Diagnosis Type II diabetes mellitus without complication (disorder) Diagnosis Acquired absence of organ Diagnosis Follow-up status (finding) Diagnosis Diaphragmatic hernia (disorder) Diagnosis History of - psychiatric disorder (context-dependent category) Diagnosis Excessive skin and subcutaneous tissue (disorder) Diagnosis Intertrigo (disorder) Diagnosis Abnormal weight loss (finding) Diagnosis Tachyarrhythmia (disorder) Diagnosis History of - artificial organ/tissue (context-dependent category) Diagnosis Gastrojejunal ulcer without hemorrhage AND without perforation (disorder) Diagnosis Retained foreign body (disorder) Diagnosis Morbid obesity (disorder) Diagnosis Obese class II (finding) Diagnosis Morbid (severe) obesity due to excess calories Diagnosis Essential (primary) hypertension Diagnosis Major depressive disorder, single episode, unspecified Diagnosis Metabolic syndrome Active Diagnosis Body mass index (BMI) 50-59.9 , adult Diagnosis Hypotension, unspecified Diagnosis Stress incontinence (female) (male) Diagnosis Anxiety disorder, unspecified Diagnosis Gastro-esophageal reflux disease without esophagitis Diagnosis Irritable bowel syndrome without diarrhea Diagnosis Hyperlipidemia, unspecified Diagnosis Dorsalgia, unspecified Diagnosis Localized edema Diagnosis Heartburn Diagnosis Other forms of dyspnea Diagnosis Pain in unspecified joint Diagnosis Tachycardia, unspecified Diagnosis Unspecified osteoarthritis, unspecified site Diagnosis Acquired absence of both cervix and uterus Diagnosis Counseling procedure with explicit context (situation) Diagnosis Body mass index 40+ - severely obese (finding) Diagnosis Encounter for follow-up examination after completed treatment for conditions other than malignant ne Active Diagnosis Dysphasia Active Diagnosis Localized adiposity Active Diagnosis Other specified disorders of the skin and subcutaneous tissue Active Diagnosis Dietary counseling and surveillance Active Diagnosis Encounter for surgical aftercare following surgery on the digestive system Active Diagnosis Intussusception Active Diagnosis Unspecified abdominal pain Active Diagnosis Past history of procedure (context-dependent category) Diagnosis Metabolic syndrome X (disorder) Diagnosis Hypertensive heart failure (disorder) Diagnosis Heart failure (disorder) Diagnosis Pure hypercholesterolemia (disorder) Diagnosis Backache (finding) Diagnosis Osteoarthritis (disorder) Diagnosis Long-term current use of opiate analgesic drug (situation) Diagnosis Chronic pain (finding) Diagnosis Surgical follow-up (finding) Diagnosis Intussusception of intestine (disorder) Diagnosis Obesity (disorder) Diagnosis Obese class I (finding) Diagnosis Postoperative complication (disorder) Diagnosis Disease of skin (disorder) Diagnosis Diabetic complication (disorder) Diagnosis Long-term current use of drug therapy (situation) Diagnosis Long-term current use of oral hypoglycemic medication Diagnosis Medications Medication Details Route Status Patient Instructions Ordering Provider Order Date Source topiramate 25 MG Oral Tablet 25 mg = 1 Tablet(s), Oral, bid, Take 1 tablet daily for 2 weeks, increase to BID if tolerating thereafter, # 60 Tablet(s), Refill(s) 0, Pharmacy: [id number], cm, 06/26/24 13:27:00 [employer] REPRESENTATIVE, Height (cm), kg, 06/26/24 13:27:00 [employer] REPRESENTATIVE, Weight (kg), 89 Active 06/26/20 [facility] Allergies, Adverse Reactions, Alerts Substance Category Reaction Severity Reaction type Status Date Reported Comments Source [place] Assertion Food allergy Active [facility] Adhesive bandage Assertion Allergy to substance Active [facility] Trintellix< sup>1</sup> Assertion Drug allergy Active visual changes, loss of balance [facility] alpha-gluco sidase containing compounds Assertion Food allergy Active [facility] Results Order Name Results Value Reference Range Date Interpretation Comments Source GENERAL CHEMISTRY Estimated GFR for peds Not calculated 06/26 21:00 :00 Interpretive Data: The estimated GFR was calculated using the B bhavana Rudolph equation (2009) . Reference: Pediatric GFR calculator at [employer] Website. [facility] GENERAL CHEMISTRY AST-SGOT 27 U/L 06/26 21:00 :00 [facility] GENERAL CHEMISTRY Albumin 3.6 g/dL 3.4 - 5.0 06/26 21:00 :00 [facility] GENERAL CHEMISTRY Alkaline Phosphatase 142 U/L 35 - 104 06/26 21:00 :00 [facility] GENERAL CHEMISTRY ALT-SGPT 20 U/L 10 - 40 06/26 21:00 :00 [facility] GENERAL CHEMISTRY BUN 13 mg/dL 6 - 20 06/26 21:00 :00 [facility] GENERAL CHEMISTRY Calcium 9.1 mg/dL 8.3 - 10.6 06/26 21:00 :00 [facility] GENERAL CHEMISTRY Glucose Lvl 118 mg/dL 70 - 139 06/26 21:00 :00 [facility] GENERAL CHEMISTRY Chloride 104 mmol/L 98 - 107 06/26 21:00 :00 [facility] GENERAL CHEMISTRY Sodium 141 mmol/L 136 - 145 06/26 21:00 :00 [facility] GENERAL CHEMISTRY Potassium 4.2 mmol/L 3.5 - 5.1 06/26 21:00 :00 [facility] GENERAL CHEMISTRY CO2 28 mmol/L 20 - 31 06/26 21:00 :00 [facility] GENERAL CHEMISTRY Anion gap 13 mmol/L 0 - 20 06/26 21:00 :00 [facility] GENERAL CHEMISTRY T Bili 0.32 mg/dL 0.30 - 1.20 06/26 21:00 :00 [facility] GENERAL CHEMISTRY Total Protein 7.2 g/dL 5.7 - 8.2 06/26 21:00 :00 [facility] GENERAL CHEMISTRY Creatinine, standardized 0.7 mg/dL 0.5 - 1.0 06/26 21:00 :00 Interpretive Data: Jenlvj-gi-ztz e transgender patients on testosterone therapy should have results assessed using the male reference range. Zzot-rn-[id number] e transgender patients on hormone-modul ating therapy clinical judgment is advisedfor assessment. [facility] GENERAL CHEMISTRY Estimated GFR for Adults 108 mL/min/1.7 3m 06/26 21:00 :00 Interpretive Data: Changed to CKD-EPI 2020 on 2020. [facility] GENERAL CHEMISTRY Ferritin 80.6 ng/mL 7.3 - 270.7 06/26 21:00 :00 [facility] GENERAL CHEMISTRY Iron 138 ug/dL 50 - 170 06/26 21:00 :00 [facility] GENERAL CHEMISTRY TIBC 270 ug/dL 250 - 425 06/26 21:00 :00 [facility] GENERAL CHEMISTRY Iron Saturation 51.0 % 20.0 - 55.0 06/26 21:00 :00 [facility] GENERAL CHEMISTRY Cholesterol 163 mg/dL 06/26 21:00 :00 [facility] GENERAL CHEMISTRY HDL Cholesterol 62 mg/dL 06/26 21:00 :00 Interpretive Data: HDL Cholesterol Level mg/dL Category Less than 40(for Men) Low HDL cholesterol. A major risk factor for heart disease. Less than 50 (for Women) 60 and above High HDL cholesterol. An HDL of 60 mg/dL and above is considered protective against heart disease. National Cholesterol Education Program [facility] [address] [address] [place] [address] http:www.nhlb i.nih.gov [facility] GENERAL CHEMISTRY Triglyceride s 137 mg/dL 06/26 21:00 :00 Interpretive Data: Less than 150 Normal 150 - 199 Borderline high 200 - 499 High 500 and above Very high National Cholesterol Education Program [facility] [address] [address] [place] [address] http://www.[facility],nih.gov [facility] GENERAL CHEMISTRY LDL (Calculated) 77 mg/dL 0 - 129 06/26 21:00 :00 Interpretive Data: LDL cholesterol is calculated based on the NIH-Pozo equation effective 03-26-2024. The NIH equation gives valid calculated LDL-C results with triglyceride concentration s up to 800 mg/dL. LDL Cholesterol Level mg/dL Category Less than 100 Optimal 100 to 129 Near or above optimal 130 to 159 Borderline high 160 to 189 High 190 and above Very High Note: Values < 80 mg/dL may indicate hypobetalipop roteinemia, if not on Statin therapy. Reference: Sánchez et al. JOSE Cardiol. 2020; 26: 1-9. [facility] GENERAL CHEMISTRY Cholesterol HDL Ratio 2.6 06/26 21:00 :00 [facility] GENERAL CHEMISTRY Magnesium 1.86 mg/dL 1.60 - 2.60 06/26 21:00 :00 [facility] GENERAL CHEMISTRY Phosphorus 3.8 mg/dL 2.4 - 5.1 06/26 21:00 :00 [facility] GENERAL CHEMISTRY Vitamin B12 330 pg/mL 211 - 911 06/26 21:00 :00 [facility] GENERAL CHEMISTRY 25-OH Vitamin D Level 32.46 ng/mL 20.00 - 100.00 06/26 21:00 :00 [facility] GENERAL CHEMISTRY Folate 28.08 ng/mL 06/26 21:00 :00 [facility] HEMATOLOGY PROFILES % Nucleated RBCs 0.0 % 06/26 21:00 :00 [facility] HEMATOLOGY PROFILES Absolute Nucleated RBCs 0.0 x10(9)/L 0.0 - 0.0 06/26 21:00 :00 Interpretive Data: Normal values not established in patients less than 18 years old. [facility] HEMATOLOGY PROFILES % Neutrophils 46.9 % 06/26 21:00 :00 [facility] HEMATOLOGY PROFILES % Lymphocytes 43.6 % 06/26 21:00 :00 [facility] HEMATOLOGY PROFILES % Monocytes 7.7 % 06/26 21:00 :00 [facility] HEMATOLOGY PROFILES % Eosinophils 1.2 % 06/26 21:00 :00 [facility] HEMATOLOGY PROFILES % Basophils 0.2 % 06/26 21:00 :00 [facility] HEMATOLOGY PROFILES % Immature Granulocytes 0.40 % 0.02 - 0.42 06/26 21:00 :00 [facility] HEMATOLOGY PROFILES Absolute Granulocytes 2.38 x10(9)/L 1.70 - 7.00 06/26 21:00 :00 [facility] HEMATOLOGY PROFILES Abs Lymphocytes 2.21 x10(9)/L 0.90 - 2.90 06/26 21:00 :00 [facility] HEMATOLOGY PROFILES Abs Monocytes 0.39 x10(9)/L 0.30 - 0.90 06/26 21:00 :00 [facility] HEMATOLOGY PROFILES Abs Eosinophils 0.06 x10(9)/L 0.05 - 0.50 06/26 21:00 :00 [facility] HEMATOLOGY PROFILES Abs Basophils 0.01 x10(9)/L 0.00 - 0.30 06/26 21:00 :00 [facility] HEMATOLOGY PROFILES Abs Immature Granulocytes 0.02 x10(9)/L 0.00 - 0.03 06/26 21:00 :00 [facility] HEMATOLOGY PROFILES WBC 5.07 x10(9)/L 3.50 - 10.50 06/26 21:00 :00 [facility] HEMATOLOGY PROFILES RBC 4.64 x10(12)/L 3.90 - 5.03 06/26 21:00 :00 [facility] HEMATOLOGY PROFILES HGB 13.9 g/dL 12.0 - 15.5 06/26 21:00 :00 Interpretive Data: Awvxgh-ng-cbj e transgender patients on testosterone therapy should have results assessed using the male reference range. Dtpn-cn-ebnzu e transgender patients on hormone-modul ating therapy clinical judgment is advisedfor assessment. [facility] HEMATOLOGY PROFILES HCT 42.4 % 34.9 - 44.5 06/26 21:00 :00 Interpretive Data: Sadlcp-bs-dic e transgender patients on testosterone therapy should have results assessed using the male reference range. Hgef-rl-hqmpd e transgender patients on hormone-modul ating therapy clinical judgment is advisedfor assessment. [facility] HEMATOLOGY PROFILES MCV 91.4 fL 81.6 - 98.3 06/26 21:00 :00 [facility] HEMATOLOGY PROFILES MCH 30.0 pg 26.0 - 33.0 06/26 21:00 :00 [facility] HEMATOLOGY PROFILES MCHC 32.8 g/dL 32.0 - 36.0 06/26 21:00 :00 [facility] HEMATOLOGY PROFILES RDW CV 14.4 % 11.9 - 15.5 06/26 21:00 :00 [facility] HEMATOLOGY PROFILES RDW SD 48.2 fL 36.4 - 46.3 06/26 21:00 :00 [facility] HEMATOLOGY PROFILES PLT 219 x10(9)/L 150 - 450 06/26 21:00 :00 [facility] HEMATOLOGY PROFILES MPV 11.0 8.0 - 12.0 06/26 21:00 :00 [facility] MISC CHEMISTRY Intact PTH 121.1 pg/mL 18.4 - 80.1 06/26 21:00 :00 [facility] REFERENCE LABS Thiamin( Bld)-[place] 105 nmol/L 70 - 180 06/26 21:00 :00 Result Comment: ------ADDITIO NAL INFORMATION-- ---- This test was developed and its performance characteristi cs determined by [facility] in a manner consistent with CLIA requirements. This test has not been cleared or approved by the U.S. Food and Drug Administratio n. Test Performed by: [facility] [place] [address] Janitor And Cleaner: Lavon Moore Ph.D.; CLIA# [id number] [facility] REFERENCE LABS Free Retinol(Vit A)-[place] 76.2 ug/dL 32.5 - 78.0 06/26 21:00 :00 Result Comment: ------ADDITIO NAL INFORMATION-- ---- This test was developed and its performance characteristi cs determined by [facility] in a manner consistent with CLIA requirements. This test has not been cleared or approved by the U.S. Food and Drug Administratio n. Test Performed by: [facility] [place] [address] Janitor And Cleaner: Lavon Moore Ph.D.; CLIA# [id number] [facility] REFERENCE LABS A-Tocopherol , Vit E-[place] 14.4 mg/L 5.5 - 17.0 06/26 21:00 :00 Result Comment: ------ADDITIO NAL INFORMATION-- ---- This test was developed and its performance characteristi cs determined by [facility] in a manner consistent with CLIA requirements. This test has not been cleared or approved by the U.S. Food and Drug Administratio n. Test Performed by: [facility] [place] [address] Janitor And Cleaner: Lavon Moore Ph.D.; CLIA# [id number] [facility] REFERENCE LABS Vitamin K1-[place] 0.12 ng/mL 0.10 - 2.20 06/26 21:00 :00 Result Comment: ------ADDITIO NAL INFORMATION-- ---- This test was developed and its performance characteristi cs determined by [facility] in a manner consistent with CLIA requirements. This test has not been cleared or approved by the U.S. Food and Drug Administratio n. Test Performed by: [facility] [place] [address] Janitor And Cleaner: Lavon Moore Ph.D.; CLIA# [id number] [facility] REFERENCE LABS Zinc, S-[place] 89 ug/dL 60 - 106 06/26 21:00 :00 Result Comment: ------ADDITIO NAL INFORMATION-- ---- This test was developed and its performance characteristi cs determined by [facility] in a manner consistent with CLIA requirements. This test has not been cleared or approved by the U.S. Food and Drug Administratio n. Test Performed by: [facility] [place] [address] Janitor And Cleaner: Lavon Moore Ph.D.; CLIA# [id number] [facility] REFERENCE LABS Copper, S-[place] 127 ug/dL 77 - 206 06/26 21:00 :00 Result Comment: ------ADDITIO NAL INFORMATION-- ---- This test was developed and its performance characteristi cs determined by [facility] in a manner consistent with CLIA requirements. This test has not been cleared or approved by the U.S. Food and Drug Administratio n. Test Performed by: [facility] [place] [address] Janitor And Cleaner: Lavon Moore Ph.D.; CLIA# [id number] [facility] Consultation Notes Results Value Date Source General [facility] Clinic Note Chief Compla int mswl History of Present Illness Medically Supervised Weight Loss follow-up Medication prescribed for weight loss: Zepbound 5 mg Symptoms: none Currently on a special diet: smaller portions, 45-55g protein daily, turkey/ chicken/ veggies, increased to 3 bottles of water daily Exercise/log: trying to get in more steps Bariatric surgery: LSG to RYGB 06/2021 PMH: HTN, HLD, takes opiate pain meds, TYpe 2 DM and GERD Prior Antiobesity Medications: Wegovy/semaglutide/Ozempic: NO Mounjaro/tirzepatide/Zepbound:yes taking Zepbound now Trulicity/Saxenda/Victoza: NO Compounded GLP-1:NO Phentermine:yes Topiramate:yes Qsymia:NO Wellbutrin:NO naltrexone:NO Contrave:NO Orlistat/ALI:NO Metformin:NO Weight history: Had LSG then had revision to RYGB due to acid reflux. She then plateaued and wanted to start medication. 06/26/24: WT: 89 kg BMI: 33.9 07/31/25: WT: 85.5 kg BMI: 32.6 10/02/24: WT: 82.2 kg BMI: 31.3 - continue topiramate BID, can consider different medication at next visit if desired 11/02/24: WT: 84.8 kg BMI: 32.3 - Continue topiramate BID, try switching to Zepbound (Approved until 11/22/25) 11/30/24: WT: 80.5 kg BMI: 30.7 - Discontinue topiramate, Continue Zepbound 01/18/25: WT: 77.8 kg BMI: 29.6 - Continue Zepbound 5mg 03/01/25 WT: 77.2kg BMI: 29.4-Continue Zepbound 7.5mg then 10mg Day of Surgery Weight: 114.5 kg Goal weight: 155 lbs (70 kg) Pt had fat necrosis along plastic surgery scarring. She had revisions of her scars 01/01/25. She reports she is healing well. Review of Systems Denies nausea, vomiting, bloating, constipation, diarrhea, heart burn, dysphagia, regurgitation Denies chest pain, shortness of breath, leg swelling Physical Exam Vitals and Measurements HR: 90 RR: 16 BP: 111/75 SpO2: 98% HT: 162 cm WT: 77.2 kg BMI: 29.4 Constitutional: Conversive. No acute distress. Neurological: Alert and oriented. Integument: No overt viewable cyanosis, pallor, or jaundice. Psych: Normal mood and affect Clinic Procedure Assessment/Plan Obesity Ordered: tirzepatide(Zepbound Pen (tirzepatide) 10 mg/0.5 mL subcutaneous solution), 10 mg, Subcutaneous, qWeek tirzepatide(Zepbound Pen (tirzepatide) 7.5 mg/0.5 mL subcutaneous solution), 7.5 mg, Subcutaneous, qWeek 1) Overweight, BMI: 29.6 obesity is chronic condition 2) Status Post LSG to RYGB 3) Weight plateau -- Discontinued topiramate -- Encouraged pt to get 65-80g protein daily -- Completed 1:1 with dietitian - declined scheduling another visit today -fu in 8 weeks TLH -will titrate up to 7.5mg then 10mg-scripts sent Today we reviewed the risks of Zepbound including but not limited to: thyroid c-cell tumors, pancreatitis, hypoglycemia, acute kidney injury. Patient has no personal or family history of medullary thyroid carcinoma, multiple endocrine neoplasm syndrome type II or pancreatitis. Together we walked through each of the steps of this injection. They were educated on the Zepbound dose schedule.They were provided with tips for managing nausea; eating a bland, low fat food diet, eating foods that contain water, avoid laying down after eating, going outside for fresh air. Patient reports understanding, was in agreement with this plan and did not have any further questions at this time. 4) GERD-chronic and stable -- Continue famotidine and pantoprazole with PCP -- Avoid foods that worsen symptoms -- Contact clinic if symptoms change/ worsen 5). Tachycardia-resolved Dietary counseling: It is recommended that the patient focus on meeting protein grams goals 65-80 grams per day. Exercise counseling and surveillance: It is recommended the patient engage in intentional exercise 5 days a week for at least 20 to 30 minutes a day. This should include cardiovascular exercise along with strength training exercise. Strength training 2 to 3 days/week and this may include body weight movements, resistance bands, or dumbbells/gym equipment. -Weight management through dietary education and weight checks at each visit Problem List/Past Medical History Ongoing Anxiety Back pain Depression Hyperlipidemia Hypertension Irritable bowel syndrome Metabolic syndrome Osteoarthritis Type 2 diabetes mellitus Urinary, incontinence, stress female Historical Morbid obesity with BMI of 45.0-49.9, adult Procedure/Surgical History Lap Gastric Revision Service Date: 06/20/2021 Lap Sleeve Gastrectomy Service Date: 09/30/2017 fusion of L4-L5 Hysterectomy history of tubal ligation Cholecystectomy Medications acetaminophen-oxyCODONE(acetaminophen-o xycodone 325 mg-10 mg oral tablet) ALPRAZolam(ALPRAZolam 1 mg oral tablet), 1 mg= 1 Tablet(s), Oral, tid, PRN APAP/butalbital/caffeine(APAP/butalbita l/caffeine 325 mg-50 mg-40 mg oral capsule), 1 capsule(s), Oral, q4h, PRN atorvastatin(atorvastatin 40 mg oral tablet), 40 mg= 1 Tablet(s), Oral, Daily biotin(biotin 5 mg oral capsule), 5 mg= 1 capsule(s), Oral, Daily calcium-vitamin D(calcium-vitamin D 500 mg-5 mcg (200 intl units) oral tablet), 1 Tablet(s), Oral, bid cetirizine(cetirizine 10 mg oral tablet), 10 mg= 1 Tablet(s), Oral, At Bedtime cyclobenzaprine(cyclobenzaprine 10 mg oral tablet), 10 mg= 1 Tablet(s), Oral, bid docusate(docusate sodium 100 mg oral capsule), 100 mg= 1 capsule(s), Oral, bid, PRN famotidine(Pepcid), Oral, Daily fexofenadine(Aida Allergy), 180 mg, Oral, Daily furosemide(furosemide 40 mg oral tablet), 40 mg= 1 Tablet(s), Oral, Daily gabapentin(gabapentin 600 mg oral tablet), 600 mg= 1 Tablet(s), Oral, tid metoprolol(metoprolol tartrate 50 mg oral tablet), 25 mg= 0.5 Tablet(s), Oral, bid Miscellaneous Medication multivitamin([facility]Care Bariatric Vitamin), 1 Tablet(s), Oral, Daily oxyCODONE pantoprazole(Protonix 40 mg oral delayed release tablet), 40 mg= 1 Tablet(s), Oral, Daily potassium chloride(Potassium Chloride (Eqv-K-Tab) 20 mEq oral tablet, extended release), 20 mEq= 1 Tablet(s), Oral, Daily QUEtiapine(QUEtiapine 400 mg oral tablet, extended release), 400 mg= 1 Tablet(s), Oral, At Bedtime QUEtiapine(QUEtiapine 50 mg oral tablet, extended release), 50 mg= 1 Tablet(s), Oral, At Bedtime rizatriptan(rizatriptan 10 mg oral tablet, disintegrating), 10 mg= 1 Tablet(s), Oral, Daily, PRN tirzepatide(Zepbound Pen (tirzepatide) 5 mg/0.5 mL subcutaneous solution), 5 mg, Subcutaneous, qWeek tirzepatide(Zepbound Pen (tirzepatide) 7.5 mg/0.5 mL subcutaneous solution), 7.5 mg, Subcutaneous, qWeek tirzepatide(Zepbound Pen (tirzepatide) 2.5 mg/0.5 mL subcutaneous solution), 2.5 mg, Subcutaneous, qWeek tirzepatide(Zepbound Pen (tirzepatide) 7.5 mg/0.5 mL subcutaneous solution), 7.5 mg, Subcutaneous, qWeek tirzepatide(Zepbound Pen (tirzepatide) 10 mg/0.5 mL subcutaneous solution), 10 mg, Subcutaneous, qWeek tiZANidine(tiZANidine 4 mg oral tablet), 4 mg= 1 Tablet(s), Oral, q8h, PRN traMADol(traMADol 50 mg oral tablet), 50 mg= 1 Tablet(s), Oral, q6h, PRN Allergies Adhesive bandage [place] Trintellix alpha-glucosidase containing compounds Social History Smoking Status Never smoker Tobacco Smoking HistoryNever smoker Family History Cervical cancer: Mother. Obesity: Mother. Pulmonary embolism: Negative: Mother. Venous embolism: Negative: Mother. Health Status Family Member(s) Father: History is unknown Immunizations Health Maintenance Lab Results Diagnostic Results Visit Information Attending Physician: Francisco NIEVES Primary Care Physician: Ml Phillips DO Visit Date: 03/01/2025 03/01/2025 General Surgery Clinic Note Chief Compla int mswl History of Present Illness Medically Supervised Weight Loss follow-up Medication prescribed for weight loss: Zepbound 5 mg Symptoms: decreased appetite Currently on a special diet: smaller portions, 45-55g protein daily, turkey/ chicken/ veggies, increased to 3 bottles of water daily Exercise/log: Walk about 2 days per week - 1 mile - limited d/t recent surgery 01/01/25 Bariatric surgery: LSG to RYGB 06/2021 Weight history: Had LSG then had revision to RYGB due to acid reflux. She then plateaued and wanted to start medication. 06/26/24: WT: 89 kg BMI: 33.9 07/31/25: WT: 85.5 kg BMI: 32.6 10/02/24: WT: 82.2 kg BMI: 31.3 - continue topiramate BID, can consider different medication at next visit if desired 11/02/24: WT: 84.8 kg BMI: 32.3 - Continue topiramate BID, try switching to Zepbound (Approved until 11/22/25) 11/30/24: WT: 80.5 kg BMI: 30.7 - Discontinue topiramate, Continue Zepbound 01/18/25: WT: 77.8 kg BMI: 29.6 - Continue Zepbound 5mg Day of Surgery Weight: 114.5 kg Goal weight: 155 lbs (70 kg) Pt had fat necrosis along plastic surgery scarring. She had revisions of her scars 01/01/25. She reports she is healing well. Review of Systems ROS was unremarkable except for stated above in HPI. Physical Exam Vitals and Measurements HR: 109 RR: 18 BP: 93/65 SpO2: 96% HT: 162 cm WT: 77.8 kg BMI: 29.6 Constitutional: Well nourished Cardiovascular: Regular rhythm, tachycardia Respiratory: No use of accessory muscles. Good respiratory effort. Lung sounds clear and equal bilaterally. Psychiatric: Mood and affect WNL. Judgment and insight intact. Clinic Procedure Assessment/Plan Obesity Ordered: tirzepatide(Zepbound Pen (tirzepatide) 7.5 mg/0.5 mL subcutaneous solution), 7.5 mg, Subcutaneous, qWeek Orders: tirzepatide(Zepbound Pen (tirzepatide) 5 mg/0.5 mL subcutaneous solution), 5 mg, Subcutaneous, qWeek 1) Class 1 Obesity, BMI: 29.6 2) Status Post LSG to RYGB 3) Weight plateau -- Discontinued topiramate -- Encouraged pt to get 65-80g protein daily -- Completed 1:1 with dietitian - declined scheduling another visit today --Follow up in 1 month -- Continue Zepbound 5 mg (then increase to 7.5mg) - sent refills today Today we reviewed the risks of Zepbound including but not limited to: thyroid c-cell tumors, pancreatitis, hypoglycemia, acute kidney injury. Patient has no personal or family history of medullary thyroid carcinoma, multiple endocrine neoplasm syndrome type II or pancreatitis. Together we walked through each of the steps of this injection. They were educated on the Zepbound dose schedule.They were provided with tips for managing nausea; eating a bland, low fat food diet, eating foods that contain water, avoid laying down after eating, going outside for fresh air. Patient reports understanding, was in agreement with this plan and did not have any further questions at this time. 4) GERD -- Continue famotidine and pantoprazole with PCP -- Avoid foods that worsen symptoms -- Contact clinic if symptoms change/ worsen 5. Dietary counseling and surveillance -Food journalling: Encouraged patient to track and monitor nutritional intake -encouraged measurement of portion sizes, focusing on protein intake 6. Exercise counseling -encouraged activity most days of the week, focusing on ability of what patient is capable of performing, working to increase, as able. -encouraged strength training activities to build and maintain lean body mass, as able 7. Tachycardia -- Acute condition, uncontrolled -- Pt denies symptoms today, denies chest pain/ syncope -- Encouraged pt to drink 64 oz water -- If symptoms arise pt to go to the ER -Weight management through dietary education and weight checks at each visit Problem List/Past Medical History Ongoing Anxiety Back pain Depression Hyperlipidemia Hypertension Irritable bowel syndrome Metabolic syndrome Osteoarthritis Type 2 diabetes mellitus Urinary, incontinence, stress female Historical Morbid obesity with BMI of 45.0-49.9, adult Procedure/Surgical History Lap Gastric Revision Service Date: 06/20/2021 Lap Sleeve Gastrectomy Service Date: 09/30/2017 fusion of L4-L5 Hysterectomy history of tubal ligation Cholecystectomy Medications acetaminophen-oxyCODONE(acetaminophen-o xycodone 325 mg-10 mg oral tablet) ALPRAZolam(ALPRAZolam 1 mg oral tablet), 1 mg= 1 Tablet(s), Oral, tid, PRN APAP/butalbital/caffeine(APAP/butalbita l/caffeine 325 mg-50 mg-40 mg oral capsule), 1 capsule(s), Oral, q4h, PRN atorvastatin(atorvastatin 40 mg oral tablet), 40 mg= 1 Tablet(s), Oral, Daily biotin(biotin 5 mg oral capsule), 5 mg= 1 capsule(s), Oral, Daily calcium-vitamin D(calcium-vitamin D 500 mg-5 mcg (200 intl units) oral tablet), 1 Tablet(s), Oral, bid cetirizine(cetirizine 10 mg oral tablet), 10 mg= 1 Tablet(s), Oral, At Bedtime cyclobenzaprine(cyclobenzaprine 10 mg oral tablet), 10 mg= 1 Tablet(s), Oral, bid docusate(docusate sodium 100 mg oral capsule), 100 mg= 1 capsule(s), Oral, bid, PRN famotidine(Pepcid), Oral, Daily fexofenadine(Aida Allergy), 180 mg, Oral, Daily furosemide(furosemide 40 mg oral tablet), 40 mg= 1 Tablet(s), Oral, Daily gabapentin(gabapentin 600 mg oral tablet), 600 mg= 1 Tablet(s), Oral, tid metoprolol(metoprolol tartrate 50 mg oral tablet), 25 mg= 0.5 Tablet(s), Oral, bid Miscellaneous Medication multivitamin(ProCare Bariatric Vitamin), 1 Tablet(s), Oral, Daily oxyCODONE pantoprazole(Protonix 40 mg oral delayed release tablet), 40 mg= 1 Tablet(s), Oral, Daily potassium chloride(Potassium Chloride (Eqv-K-Tab) 20 mEq oral tablet, extended release), 20 mEq= 1 Tablet(s), Oral, Daily QUEtiapine(QUEtiapine 400 mg oral tablet, extended release), 400 mg= 1 Tablet(s), Oral, At Bedtime QUEtiapine(QUEtiapine 50 mg oral tablet, extended release), 50 mg= 1 Tablet(s), Oral, At Bedtime rizatriptan(rizatriptan 10 mg oral tablet, disintegrating), 10 mg= 1 Tablet(s), Oral, Daily, PRN tirzepatide(Zepbound Pen (tirzepatide) 5 mg/0.5 mL subcutaneous solution), 5 mg, Subcutaneous, qWeek tirzepatide(Zepbound Pen (tirzepatide) 7.5 mg/0.5 mL subcutaneous solution), 7.5 mg, Subcutaneous, qWeek tirzepatide(Zepbound Pen (tirzepatide) 2.5 mg/0.5 mL subcutaneous solution), 2.5 mg, Subcutaneous, qWeek tiZANidine(tiZANidine 4 mg oral tablet), 4 mg= 1 Tablet(s), Oral, q8h, PRN traMADol(traMADol 50 mg oral tablet), 50 mg= 1 Tablet(s), Oral, q6h, PRN Allergies Adhesive bandage [place] Trintellix alpha-glucosidase containing compounds Social History Smoking Status Never smoker Tobacco Smoking HistoryNever smoker Family History Cervical cancer: Mother. Obesity: Mother. Pulmonary embolism: Negative: Mother. Venous embolism: Negative: Mother. Health Status Family Member(s) Father: History is unknown Immunizations Health Maintenance Lab Results Diagnostic Results Visit Information Attending Physician: Caro BALDWIN Primary Care Physician: Ml Phillips DO Visit Date: 01/18/2025 01/18/2025 Op/Procedure Note Patient's Name: JEROME COE Date of Service: 01/01/2025 Preoperative Diagnosis: (1) painful fat necrosis along vertical and low transverse abdominal scars Postoperative Diagnosis: (1) painful fat necrosis along central and right low transverse abdominal scar, 29cm (2) painful fat necrosis along left low transverse abdominal scar, 1cm (3) painful fat necrosis along vertical abdominal scar, 16cm Procedure Performed: (1) scar revisions of the abdomen, 46cm ([id number] [id number]) Attending Surgeon: Dr. Devon Lemons Supervisor [employer] Surgeon(s): Dr. Jhony Joy Anesthesia: general Estimated Blood Loss: 10cc Specimens: scar and fat necrosis (for disposal) Indication for Procedure: Ms. Ramirez is a 49 year old who has previously undergone panniculectomy. She has healed well, but has painful areas of fat necrosis along both her low transverse and vertical scars. Scar revision was offered and accepted by the patient. She presents today for the procedure. Consent: The procedure, risks, benefits, rationale, alternatives, and expectations were reviewed with Ms. Ramirez. We discussed the expected recovery process including medications, activity limitations, and usual follow up. We discussed concerning signs and symptoms to watch for after discharge. I explained that there are no warranties or guarantees associated with the procedure. I sought and answered her questions. She verbalized understanding and elected to proceed. The informed consent form had been completed and is in the chart. Description of Procedure: The patient was met in the preoperative area where she was marked for excision of the painful areas of scar; her bedside nurse was present and the patient assisted in the markings to ensure all areas were removed. The patient was brought to the operating room and placed supine on the operating table. A preoperative time out was performed. Sequential compression devices were placed. Preoperative antibiotics were given. General anesthesia was induced by the anesthesia service. The planned incisions were infiltrated with 0.25% marcaine with epinephrine 1:200,000. The patient was prepped and draped in the usual sterile fashion. After waiting an appropriate period for the epinephrine to take effect, the marked incisions around the painful portion of the vertical scar were incised using a #15 blade scalpel. The incisions were carried down to the subcutaneous tissue using electrocautery. The scar was excised along with the nodular underlying fat necrosis. Complete hemostasis was achieved using electrocautery. The field was irrigated. The incision was then closed in layers with 3-0 Stratafix monocryl deep dermal sutures and 4-0 monocryl subcuticular stitches. The excision and closure were 16cm in length. The same process was repeated for a 1cm area along the left side of the low transverse incision and a 29cm segment of the central and right low transverse incision. The same excisional and closure processes were completed. The incisions were dressed with paper tape followed by fluffed Kerlix and ABD pads. At this point the procedure concluded. The patient was awakened from anesthesia, extubated, and taken to the recovery room in stable condition, having suffered no apparent untoward event. All sponge, needle, and instrument counts were correct at the conclusion of the procedure. I went to the surgical waiting room and spoke with her . We discussed the surgery, the expected recovery process, post-operative medications, activity restrictions, and the follow up plan. We discussed concerning signs and symptoms that should prompt a phone call, an early follow up visit, or a trip to the Emergency Department. I sought and answered his questions. He verbalized understanding and appreciation for Ms. Ramirez' care. 01/01/2025 General Surgery Clinic Note Chief Compla int mswl History of Present Illness Medically Supervised Weight Loss follow-up Medication prescribed for weight loss: Topiramate, will discontinue over the next 2 weeks / Zepbound 2.5 mg Symptoms: decreased appetite Currently on a special diet: smaller portions, 45-55g protein daily, turkey/ chicken/ veggies, 2 bottles of water per day Exercise/log: Walk about 2 days per week - 1 mile Bariatric surgery: LSG to RYGB 06/2021 Weight history: Had LSG then had revision to RYGB due to acid reflux. She then plateaued and wanted to start medication. 06/26/24: WT: 89 kg BMI: 33.9 07/31/25: WT: 85.5 kg BMI: 32.6 10/02/24: WT: 82.2 kg BMI: 31.3 - continue topiramate BID, can consider different medication at next visit if desired 11/02/24: WT: 84.8 kg BMI: 32.3 - Continue topiramate BID, try switching to Zepbound (Approved until 11/22/25) 11/30/24: WT: 80.5 kg BMI: 30.7 - Discontinue topiramate, Continue Zepbound Day of Surgery Weight: 114.5 kg Goal weight: 155 lbs Review of Systems ROS was unremarkable except for stated above in HPI. Physical Exam Vitals and Measurements HR: 97 RR: 18 BP: 103/72 SpO2: 99% HT: 162 cm WT: 80.5 kg BMI: 30.7 Constitutional: Well nourished Cardiovascular: Regular rate and rhythm Respiratory: No use of accessory muscles. Good respiratory effort. Lung sounds clear and equal bilaterally. Psychiatric: Mood and affect WNL. Judgment and insight intact. Clinic Procedure Assessment/Plan 1) Class 1 Obesity, BMI: 30.7 2) Status Post LSG to RYGB 3) Weight plateau -- Discontinue topiramate over the next 2 weeks -- Encouraged pt to get 65-80g protein daily -- Completed 1:1 with dietitian --Follow up in 1 month -- Continue Zepbound 2.5 mg (then increase to 5mg) Today we reviewed the risks of Zepbound including but not limited to: thyroid c-cell tumors, pancreatitis, hypoglycemia, acute kidney injury. Patient has no personal or family history of medullary thyroid carcinoma, multiple endocrine neoplasm syndrome type II or pancreatitis. Together we walked through each of the steps of this injection. They were educated on the Zepbound dose schedule.They were provided with tips for managing nausea; eating a bland, low fat food diet, eating foods that contain water, avoid laying down after eating, going outside for fresh air. Patient reports understanding, was in agreement with this plan and did not have any further questions at this time. 4) GERD -- Continue famotidine -- Avoid foods that worsen symptoms -- Contact clinic if symptoms change/ worsen 5. Dietary counseling and surveillance -Food journalling: Encouraged patient to track and monitor nutritional intake -encouraged measurement of portion sizes, focusing on protein intake 6. Exercise counseling -encouraged activity most days of the week, focusing on ability of what patient is capable of performing, working to increase, as able. -encouraged strength training activities to build and maintain lean body mass, as able -Weight management through dietary education and weight checks at each visit Problem List/Past Medical History Ongoing Anxiety Back pain Depression Hyperlipidemia Hypertension Irritable bowel syndrome Metabolic syndrome Osteoarthritis Type 2 diabetes mellitus Urinary, incontinence, stress female Historical Morbid obesity with BMI of 45.0-49.9, adult Procedure/Surgical History Lap Gastric Revision Service Date: 06/20/2021 Lap Sleeve Gastrectomy Service Date: 09/30/2017 fusion of L4-L5 Hysterectomy history of tubal ligation Cholecystectomy Medications acetaminophen-oxyCODONE(acetaminophen-o xycodone 325 mg-10 mg oral tablet) ALPRAZolam(ALPRAZolam 1 mg oral tablet), 1 mg= 1 Tablet(s), Oral, tid, PRN APAP/butalbital/caffeine(APAP/butalbita l/caffeine 325 mg-50 mg-40 mg oral capsule), 1 capsule(s), Oral, q4h, PRN atorvastatin(atorvastatin 40 mg oral tablet), 40 mg= 1 Tablet(s), Oral, Daily biotin(biotin 5 mg oral capsule), 5 mg= 1 capsule(s), Oral, Daily calcium-vitamin D(calcium-vitamin D 500 mg-5 mcg (200 intl units) oral tablet), 1 Tablet(s), Oral, bid cetirizine(cetirizine 10 mg oral tablet), 10 mg= 1 Tablet(s), Oral, At Bedtime cyclobenzaprine(cyclobenzaprine 10 mg oral tablet), 10 mg= 1 Tablet(s), Oral, bid docusate(docusate sodium 100 mg oral capsule), 100 mg= 1 capsule(s), Oral, bid, PRN famotidine(Pepcid), Oral, Daily fexofenadine(Aida Allergy), 180 mg, Oral, Daily furosemide(furosemide 40 mg oral tablet), 40 mg= 1 Tablet(s), Oral, Daily gabapentin(gabapentin 600 mg oral tablet), 600 mg= 1 Tablet(s), Oral, tid metoprolol(metoprolol tartrate 50 mg oral tablet), 25 mg= 0.5 Tablet(s), Oral, bid Miscellaneous Medication multivitamin(ProCare Bariatric Vitamin), 1 Tablet(s), Oral, Daily oxyCODONE pantoprazole(Protonix 40 mg oral delayed release tablet), 40 mg= 1 Tablet(s), Oral, Daily potassium chloride(Potassium Chloride (Eqv-K-Tab) 20 mEq oral tablet, extended release), 20 mEq= 1 Tablet(s), Oral, Daily QUEtiapine(QUEtiapine 400 mg oral tablet, extended release), 400 mg= 1 Tablet(s), Oral, At Bedtime QUEtiapine(QUEtiapine 50 mg oral tablet, extended release), 50 mg= 1 Tablet(s), Oral, At Bedtime rizatriptan(rizatriptan 10 mg oral tablet, disintegrating), 10 mg= 1 Tablet(s), Oral, Daily, PRN tirzepatide(Zepbound Pen (tirzepatide) 2.5 mg/0.5 mL subcutaneous solution), 2.5 mg, Subcutaneous, qWeek tirzepatide(Zepbound Pen (tirzepatide) 5 mg/0.5 mL subcutaneous solution), 5 mg, Subcutaneous, qWeek tiZANidine(tiZANidine 4 mg oral tablet), 4 mg= 1 Tablet(s), Oral, q8h, PRN topiramate(topiramate 25 mg oral tablet), 25 mg= 1 Tablet(s), Oral, bid, 1 refills traMADol(traMADol 50 mg oral tablet), 50 mg= 1 Tablet(s), Oral, q6h, PRN Allergies Adhesive bandage [place] Trintellix alpha-glucosidase containing compounds Social History Smoking Status Never smoker Tobacco Smoking HistoryNever smoker Family History Cervical cancer: Mother. Obesity: Mother. Pulmonary embolism: Negative: Mother. Venous embolism: Negative: Mother. Health Status Family Member(s) Father: History is unknown Immunizations Health Maintenance Lab Results Diagnostic Results Visit Information Attending Physician: Caro BALDWIN Primary Care Physician: Ml Phillips DO Visit Date: 11/30/2024 11/30/2024 General Surgery Clinic Note Chief Compla int [facility] History of Present Illness Medically Supervised Weight Loss follow-up Medication prescribed for weight loss: Topiramate Symptoms: decreased appetite - has endorsed increased intake of pretzels and popcorn Currently on a special diet: smaller portions, 45-55g protein daily Exercise/log: No routine Bariatric surgery: LSG to RYGB 06/2021 Weight history: Had LSG then had revision to RYGB due to acid reflux. She then plateaued and wanted to start medication. 06/26/24: WT: 89 kg BMI: 33.9 07/31/25: WT: 85.5 kg BMI: 32.6 10/02/24: WT: 82.2 kg BMI: 31.3 - continue topiramate BID, can consider different medication at next visit if desired 11/02/24: WT: 84.8 kg BMI: 32.3 - Continue topiramate BID, try switching to Zepbound (if approved) Day of Surgery Weight: 114.5 kg Adequate Protein: 45g -55g daily - recently found Orgain protein powder Readmission/reoperations since weight loss surgery: 01/14/24: panniculectomy and mons lift, 02/04/24: I&D Incision site abscess, R hip Review of Systems ROS was unremarkable except for stated above in HPI. Physical Exam Vitals and Measurements HR: 97 RR: 16 BP: 106/73 SpO2: 98% HT: 162 cm WT: 84.8 kg BMI: 32.3 Constitutional: Well nourished Cardiovascular: regular rate and normal rhythm Respiratory: No use of accessory muscles. Good respiratory effort. Lung sounds clear and equal bilaterally. Psychiatric: Mood and affect WNL. Judgment and insight intact. Clinic Procedure Assessment/Plan Obesity Ordered: tirzepatide(Zepbound Pen (tirzepatide) 2.5 mg/0.5 mL subcutaneous solution), 2.5 mg, Subcutaneous, qWeek tirzepatide(Zepbound Pen (tirzepatide) 5 mg/0.5 mL subcutaneous solution), 5 mg, Subcutaneous, qWeek Orders: topiramate(topiramate 25 mg oral tablet), 25 mg= 1 Tablet(s), Oral, bid, 1 refills 1) Class 1 Obesity, BMI: 32.3 2) Status Post LSG to RYGB 3) Weight plateau -- Continue topiramate BID to assist with weight loss (sent refills) -- Encouraged pt to get 65-80g protein daily -- Completed 1:1 with dietitian --Follow up in 1 months -- Start Zepbound (pt understands this will have to get PA through insurance prior to starting) 4) GERD -- Continue famotidine -- Avoid foods that worsen symptoms -- Contact clinic if symptoms change/ worsen 5. Dietary counseling and surveillance -Food journalling: Encouraged patient to track and monitor nutritional intake -encouraged measurement of portion sizes, focusing on protein intake 6. Exercise counseling -encouraged activity most days of the week, focusing on ability of what patient is capable of performing, working to increase, as able. -encouraged strength training activities to build and maintain lean body mass, as able -Weight management through dietary education and weight checks at each visit Problem List/Past Medical History Ongoing Anxiety Back pain Depression Hyperlipidemia Hypertension Irritable bowel syndrome Metabolic syndrome Osteoarthritis Type 2 diabetes mellitus Urinary, incontinence, stress female Historical Morbid obesity with BMI of 45.0-49.9, adult Procedure/Surgical History Lap Gastric Revision Service Date: 06/20/2021 Lap Sleeve Gastrectomy Service Date: 09/30/2017 fusion of L4-L5 Hysterectomy history of tubal ligation Cholecystectomy Medications acetaminophen-oxyCODONE(acetaminophen-o xycodone 325 mg-10 mg oral tablet) ALPRAZolam(ALPRAZolam 1 mg oral tablet), 1 mg= 1 Tablet(s), Oral, tid, PRN APAP/butalbital/caffeine(APAP/butalbita l/caffeine 325 mg-50 mg-40 mg oral capsule), 1 capsule(s), Oral, q4h, PRN atorvastatin(atorvastatin 40 mg oral tablet), 40 mg= 1 Tablet(s), Oral, Daily biotin(biotin 5 mg oral capsule), 5 mg= 1 capsule(s), Oral, Daily calcium-vitamin D(calcium-vitamin D 500 mg-5 mcg (200 intl units) oral tablet), 1 Tablet(s), Oral, bid cetirizine(cetirizine 10 mg oral tablet), 10 mg= 1 Tablet(s), Oral, At Bedtime cyclobenzaprine(cyclobenzaprine 10 mg oral tablet), 10 mg= 1 Tablet(s), Oral, bid docusate(docusate sodium 100 mg oral capsule), 100 mg= 1 capsule(s), Oral, bid, PRN famotidine(Pepcid), Oral, Daily fexofenadine(Aiad Allergy), 180 mg, Oral, Daily furosemide(furosemide 40 mg oral tablet), 40 mg= 1 Tablet(s), Oral, Daily gabapentin(gabapentin 600 mg oral tablet), 600 mg= 1 Tablet(s), Oral, tid metoprolol(metoprolol tartrate 50 mg oral tablet), 25 mg= 0.5 Tablet(s), Oral, bid Miscellaneous Medication multivitamin(ProCare Bariatric Vitamin), 1 Tablet(s), Oral, Daily pantoprazole(Protonix 40 mg oral delayed release tablet), 40 mg= 1 Tablet(s), Oral, Daily potassium chloride(Potassium Chloride (Eqv-K-Tab) 20 mEq oral tablet, extended release), 20 mEq= 1 Tablet(s), Oral, Daily QUEtiapine(QUEtiapine 400 mg oral tablet, extended release), 400 mg= 1 Tablet(s), Oral, At Bedtime QUEtiapine(QUEtiapine 50 mg oral tablet, extended release), 50 mg= 1 Tablet(s), Oral, At Bedtime rizatriptan(rizatriptan 10 mg oral tablet, disintegrating), 10 mg= 1 Tablet(s), Oral, Daily, PRN tirzepatide(Zepbound Pen (tirzepatide) 2.5 mg/0.5 mL subcutaneous solution), 2.5 mg, Subcutaneous, qWeek tirzepatide(Zepbound Pen (tirzepatide) 5 mg/0.5 mL subcutaneous solution), 5 mg, Subcutaneous, qWeek tiZANidine(tiZANidine 4 mg oral tablet), 4 mg= 1 Tablet(s), Oral, q8h, PRN topiramate(topiramate 25 mg oral tablet), 25 mg= 1 Tablet(s), Oral, bid, 1 refills traMADol(traMADol 50 mg oral tablet), 50 mg= 1 Tablet(s), Oral, q6h, PRN Allergies Adhesive bandage [place] Tr[employer]ellix alpha-glucosidase containing compounds Social History Smoking Status Never smoker Tobacco Smoking HistoryNever smoker Family History Cervical cancer: Mother. Obesity: Mother. Pulmonary embolism: Negative: Mother. Venous embolism: Negative: Mother. Health Status Family Member(s) Father: History is unknown Immunizations Health Maintenance Lab Results Diagnostic Results Visit Information Attending Physician: Caro BALDWIN Primary Care Physician: Ml Phillips DO Visit Date: 11/02/2024 11/02/2024 General Surgery Clinic Note Chief Compla int mswl History of Present Illness Medically Supervised Weight Loss follow-up Medication prescribed for weight loss: topiramate Symptoms: forgetfulness/ loopiness Currently on a special diet: smaller portions, 45-55g protein daily Exercise/log: No routine Bariatric surgery: LSG to RYGB 06/2021 Weight history: Had LSG then had revision to RYGB due to acid reflux. She then plateaued and wanted to start medication. 06/26/24: WT: 89 kg BMI: 33.9 07/31/25: WT: 85.5 kg BMI: 32.6 10/02/24: WT: 82.2 kg BMI: 31.3 - continue topiramate BID, can consider different medication at next visit if desired From yearly note: Day of Surgery Weight: 114.5 kg Adequate Protein: 45g -55g daily - recently found Orgain protein powder that Readmission/reoperations since weight loss surgery: 01/14/24: panniculectomy and mons lift, 02/04/24: I&D Incision site abscess, R hip Review of Systems ROS was unremarkable except for stated above in HPI. Physical Exam Vitals and Measurements HR: 100 BP: 113/76 SpO2: 97% HT: 162 cm WT: 82.2 kg BMI: 31.3 Constitutional: Well nourished Cardiovascular: Regular rate and rhythm Respiratory: No use of accessory muscles. Good respiratory effort. Lung sounds clear and equal bilaterally. Psychiatric: Mood and affect WNL. Judgment and insight intact. Clinic Procedure Assessment/Plan 1) Class 1 Obesity, BMI: 31.3 2) Status Post LSG to RYGB 3) Weight plateau -- Continue topiramate to assist with weight loss -- Encouraged pt to get 65-80g protein daily -- Completed 1:1 with dietitian today --Follow up in 1 months 4) GERD -- Continue famotidine -- Avod foods that worsen symptoms -- Contact clinic if symptoms change/ worsen I have discussed the adverse effects that can occur with topiramate including SI HI, mood disturbances, and not to abruptly withdraw the medication due to the possibility of seizure activity, with instructions to contact the clinic with any questions or concerns. I discussed that using this medication for weight loss is considered off label use. Avoid naltrexone due to opiate for pain medication Avoid phentermine due to tachycardia, anxiety/ depression Avoid Wellbutrin due to other mood medications Can consider metformin Patient understood and agreed to above plan. Problem List/Past Medical History Ongoing Anxiety Back pain Depression Hyperlipidemia Hypertension Irritable bowel syndrome Metabolic syndrome Osteoarthritis Type 2 diabetes mellitus Urinary, incontinence, stress female Historical Morbid obesity with BMI of 45.0-49.9, adult Procedure/Surgical History Lap Gastric Revision Service Date: 06/20/2021 Lap Sleeve Gastrectomy Service Date: 09/30/2017 fusion of L4-L5 Hysterectomy history of tubal ligation Cholecystectomy Medications acetaminophen-oxyCODONE(acetaminophen-o xycodone 325 mg-10 mg oral tablet) ALPRAZolam(ALPRAZolam 1 mg oral tablet), 1 mg= 1 Tablet(s), Oral, tid, PRN APAP/butalbital/caffeine(APAP/butalbita l/caffeine 325 mg-50 mg-40 mg oral capsule), 1 capsule(s), Oral, q4h, PRN atorvastatin(atorvastatin 40 mg oral tablet), 40 mg= 1 Tablet(s), Oral, Daily biotin(biotin 5 mg oral capsule), 5 mg= 1 capsule(s), Oral, Daily calcium-vitamin D(calcium-vitamin D 500 mg-5 mcg (200 intl units) oral tablet), 1 Tablet(s), Oral, bid cetirizine(cetirizine 10 mg oral tablet), 10 mg= 1 Tablet(s), Oral, At Bedtime cyclobenzaprine(cyclobenzaprine 10 mg oral tablet), 10 mg= 1 Tablet(s), Oral, bid docusate(docusate sodium 100 mg oral capsule), 100 mg= 1 capsule(s), Oral, bid, PRN famotidine(Pepcid), Oral, Daily fexofenadine(Aida Allergy), 180 mg, Oral, Daily furosemide(furosemide 40 mg oral tablet), 40 mg= 1 Tablet(s), Oral, Daily gabapentin(gabapentin 600 mg oral tablet), 600 mg= 1 Tablet(s), Oral, tid metoprolol(metoprolol tartrate 50 mg oral tablet), 25 mg= 0.5 Tablet(s), Oral, bid Miscellaneous Medication multivitamin(ProCare Bariatric Vitamin), 1 Tablet(s), Oral, Daily pantoprazole(Protonix 40 mg oral delayed release tablet), 40 mg= 1 Tablet(s), Oral, Daily potassium chloride(Potassium Chloride (Eqv-K-Tab) 20 mEq oral tablet, extended release), 20 mEq= 1 Tablet(s), Oral, Daily QUEtiapine(QUEtiapine 400 mg oral tablet, extended release), 400 mg= 1 Tablet(s), Oral, At Bedtime QUEtiapine(QUEtiapine 50 mg oral tablet, extended release), 50 mg= 1 Tablet(s), Oral, At Bedtime rizatriptan(rizatriptan 10 mg oral tablet, disintegrating), 10 mg= 1 Tablet(s), Oral, Daily, PRN tiZANidine(tiZANidine 4 mg oral tablet), 4 mg= 1 Tablet(s), Oral, q8h, PRN topiramate(topiramate 25 mg oral tablet), 25 mg= 1 Tablet(s), Oral, bid topiramate(topiramate 25 mg oral tablet), 25 mg= 1 Tablet(s), Oral, bid traMADol(traMADol 50 mg oral tablet), 50 mg= 1 Tablet(s), Oral, q6h, PRN Allergies Adhesive bandage [place] Trintellix alpha-glucosidase containing compounds Social History Smoking Status Never smoker Tobacco Smoking HistoryNever smoker Family History Cervical cancer: Mother. Obesity: Mother. Pulmonary embolism: Negative: Mother. Venous embolism: Negative: Mother. Health Status Family Member(s) Father: History is unknown Immunizations Health Maintenance Lab Results Diagnostic Results Visit Information Attending Physician: Caro BALDWIN Primary Care Physician: Ml Phillips DO Visit Date: 10/02/2024 10/02/2024 General Surgery Clinic Note Chief Compla int MSWL History of Present Illness Medically Supervised Weight Loss follow-up Medication prescribed for weight loss: topiramate Symptoms: forgetfulness Currently on a special diet: smaller portions, 45-55g protein daily Exercise/log: No routine Bariatric surgery: LSG to RYGB 06/2021 From yearly note: Day of Surgery Weight: 114.5 kg Last visit Weight: 89 kg Current weight: 85.5 kg Adequate Protein: 45g -55g daily - recently found Orgain protein powder that Readmission/reoperations since weight loss surgery: 01/14/24: panniculectomy and mons lift , 02/04/24: I&D Incision site abscess, R hip Review of Systems ROS was unremarkable except for stated above in HPI. Physical Exam Vitals and Measurements HR: 107 RR: 12 BP: 119/83 SpO2: 96% HT: 162 cm WT: 85.5 kg BMI: 32.6 Constitutional: Well nourished Cardiovascular: Regular rate and rhythm Respiratory: No use of accessory muscles. Good respiratory effort. Lung sounds clear and equal bilaterally. GI: Soft, nondistended. Psychiatric: Mood and affect WNL. Judgment and insight intact. Clinic Procedure Assessment/Plan Orders: topiramate(topiramate 25 mg oral tablet), 25 mg= 1 Tablet(s), Oral, bid 1) Class 1 Obesity, BMI: 33.9 2) Status Post LSG to RYGB 3) Weight plateua -- Continue topiramate to assist with weight loss -- Encouraged pt to get 65-80g protein daily -- Completed 1:1 with dietitian today --Follow up in 2 ​ months I have discussed the adverse effects that can occur with topiramate including SI HI, mood disturbances, and not to abruptly withdraw the medication due to the possibility of seizure activity, with instructions to contact the clinic with any questions or concerns. I discussed that using this medication for weight loss is considered off label use. Avoid naltrexone due to opiate for pain medication Avoid phentermine due to tachycardia, anxiety/ depression Avoid Wellbutrin due to other mood medications Can consider metformin Patient understood and agreed to above plan. Problem List/Past Medical History Ongoing Anxiety Back pain Depression Hyperlipidemia Hypertension Irritable bowel syndrome Metabolic syndrome Osteoarthritis Type 2 diabetes mellitus Urinary, incontinence, stress female Historical Morbid obesity with BMI of 45.0-49.9, adult Procedure/Surgical History Lap Gastric Revision Service Date: 06/20/2021 Lap Sleeve Gastrectomy Service Date: 09/30/2017 fusion of L4-L5 Hysterectomy history of tubal ligation Cholecystectomy Medications acetaminophen-oxyCODONE(acetaminophen-o xycodone 325 mg-10 mg oral tablet) ALPRAZolam(ALPRAZolam 1 mg oral tablet), 1 mg= 1 Tablet(s), Oral, tid, PRN APAP/butalbital/caffeine(APAP/butalbita l/caffeine 325 mg-50 mg-40 mg oral capsule), 1 capsule(s), Oral, q4h, PRN atorvastatin(atorvastatin 40 mg oral tablet), 40 mg= 1 Tablet(s), Oral, Daily biotin(biotin 5 mg oral capsule), 5 mg= 1 capsule(s), Oral, Daily calcium-vitamin D(calcium-vitamin D 500 mg-5 mcg (200 intl units) oral tablet), 1 Tablet(s), Oral, bid cetirizine(cetirizine 10 mg oral tablet), 10 mg= 1 Tablet(s), Oral, At Bedtime cyclobenzaprine(cyclobenzaprine 10 mg oral tablet), 10 mg= 1 Tablet(s), Oral, bid docusate(docusate sodium 100 mg oral capsule), 100 mg= 1 capsule(s), Oral, bid, PRN furosemide(furosemide 40 mg oral tablet), 40 mg= 1 Tablet(s), Oral, Daily gabapentin(gabapentin 600 mg oral tablet), 600 mg= 1 Tablet(s), Oral, tid metoprolol(metoprolol tartrate 50 mg oral tablet), 25 mg= 0.5 Tablet(s), Oral, bid Miscellaneous Medication multivitamin(ProCare Bariatric Vitamin), 1 Tablet(s), Oral, Daily pantoprazole(Protonix 40 mg oral delayed release tablet), 40 mg= 1 Tablet(s), Oral, Daily potassium chloride(Potassium Chloride (Eqv-K-Tab) 20 mEq oral tablet, extended release), 20 mEq= 1 Tablet(s), Oral, Daily QUEtiapine(QUEtiapine 400 mg oral tablet, extended release), 400 mg= 1 Tablet(s), Oral, At Bedtime QUEtiapine(QUEtiapine 50 mg oral tablet, extended release), 50 mg= 1 Tablet(s), Oral, At Bedtime rizatriptan(rizatriptan 10 mg oral tablet, disintegrating), 10 mg= 1 Tablet(s), Oral, Daily, PRN tiZANidine(tiZANidine 4 mg oral tablet), 4 mg= 1 Tablet(s), Oral, q8h, PRN topiramate(topiramate 25 mg oral tablet), 25 mg= 1 Tablet(s), Oral, bid topiramate(topiramate 25 mg oral tablet), 25 mg= 1 Tablet(s), Oral, bid traMADol(traMADol 50 mg oral tablet), 50 mg= 1 Tablet(s), Oral, q6h, PRN Allergies Adhesive bandage [place] Trintellix alpha-glucosidase containing compounds Social History Smoking Status Never smoker Tobacco Smoking HistoryNever smoker Family History Cervical cancer: Mother. Obesity: Mother. Pulmonary embolism: Negative: Mother. Venous embolism: Negative: Mother. Health Status Family Member(s) Father: History is unknown Immunizations Health Maintenance Lab Results Diagnostic Results Visit Information Attending Physician: Caro BALDWIN Primary Care Physician: Ml Phillips DO Visit Date: 07/31/2024 07/31/2024 General Surgery Clinic Note Chief Compla int annual History of Present Illness Visit type: postoperative follow-up Annual visit s/p LSG to RYGB to treat preoperative obesity/morbid obesity and associated comorbidities. Date of Procedure: 06/20/2021, Dr. Almodovar Last EGD/EGJ: EGJ with biopsy: 12/25/27: Postoperative Diagnosis Marginal ulcer resolved Day of Surgery Weight: 114.5 kg Last visit Weight: 87.3 kg Current weight: 89 kg Symptoms: Denies N/V/D/C. GERD/Reflux: Yes, controlled on PPI Dysphagia: occasionally Taking vitamins: No Taking PPI: Yes Exercise: Reports no current routine since the end of December after skin removal Adequate Protein: 45g -55g daily - recently found Orgain protein powder that Adequate Fluid: Yes Medications changes since operation: No Readmission/reoperations since weight loss surgery: 01/14/24: panniculectomy and mons lift , 02/04/24: I&D Incision site abscess, R hip ​ Patient reports the following positive changes following WLS or improvement of the following obesity related comorbidities: feels better about herself, feels healthier Pt reports frustratation she didn't make it to her goal weight after weight loss surgery. She would like to start a medication to assist with weight loss to get her to her goal. She is struggling to meet protein goal due to diagnosis of alpha gal. She also isn't taking her bariatric MVI due to diagnosis of alpha gal. Pt reports she is frustrated with abdominal pain after skin removal surgery. She reports she has gained weight/ bloats since her skin removal surgery. Review of Systems ROS: Denies cardiac history including: HTN, SC, cardiac stents, palpitations, chest pain. Denies: Glaucoma, kidney/liver disease, hyperthyroidism, DM, h/o seizures, h/o kidney stones. Denies h/o drug/alcohol abuse. Denies: personal or family history of multiple endocrine neoplasm syndrome type II, medullary thyroid carcinoma, pancreatitis Psychiatric: Denies feelings of SI, HI, + anxiety/depression Topiramate: Denies hx of seizures, nephrolithiasis, liver/kidney disease, alcohol/drug abuse, glaucoma, untreated depression. Physical Exam Vitals and Measurements HR: 92 BP: 116/81 SpO2: 93% HT: 162 cm WT: 89 kg BMI: 33.9 Constitutional: Well nourished Cardiovascular: Regular rate and rhythm Respiratory: No use of accessory muscles. Good respiratory effort. Lung sounds clear and equal bilaterally. GI: Soft, nondistended. Psychiatric: Mood WNL. Judgment and insight intact. Flat affect. Clinic Procedure Assessment/Plan GERD (gastroesophageal reflux disease) History of bariatric surgery Postoperative malabsorption Orders: topiramate(topiramate 25 mg oral tablet), 25 mg= 1 Tablet(s), Oral, bid 1) Class 1 Obesity, BMI: 33.9 2) Status Post LSG to RYGB -- Follow up in 1 year per protocol -- Obtain labs as below -- Modifications to standard protocol: No 3) Postoperative malabsorption Sent patient to the lab today. Patient will receive letter from dietitian with results and recommendations for additional supplementation if deficiencies noted. Instructions were given to continue taking daily multivitamin with additional recommended Vitamin D and Calcium. Labs ordered as below: CBC with Auto Differential Comprehensive Metabolic Panel Ferritin Level Folate Level Intact PTH Iron Level and TIBC Lipid Profile Magnesium Level Phosphorus Level Vitamin B1 (Thiamin) Whole Blood-[place] Vitamin B12 Level Vitamin D Level Zinc Level-[place] 4. Weight plateua -- started topiramate to assist with weight loss -- Encouraged pt to get 65-80g protein daily -- Schedule 1:1 with dietitian to discuss protein recommendations with alpha gal --Follow up in 1 month I have discussed the adverse effects that can occur with topiramate including SI HI, mood disturbances, and not to abruptly withdraw the medication due to the possibility of seizure activity, with instructions to contact the clinic with any questions or concerns. I discussed that using this medication for weight loss is considered off label use. Avoid naltrexone due to opiate for pain medication Avoid phentermine due to tachycardia, anxiety/ depression Avoid Wellbutrin due to other mood medications Can consider metformin 5. History of Marginal Ulcer -Denies tobacco, NSAID, or oral steroid use postoperatively. -Continue taking Pantoprazole (contact clinic if refill needed) 6. History of Diabetes Mellitus Type II --Controlled with diet and exercise -- following with PCP 7. Alpha Gal Syndrome -1:1 with dietitian to help patient with protein intake --gave handout for bariatric MVi recommendations - pt to research what is safe with alpha gal 8 POTS -- continue following with neurology and PCP -- Encouraged meeting daily fluid goal Patient understood and agreed to above plan. Problem List/Past Medical History Ongoing Anxiety Back pain Depression Hyperlipidemia Hypertension Irritable bowel syndrome Metabolic syndrome Osteoarthritis Type 2 diabetes mellitus Urinary, incontinence, stress female Historical Morbid obesity with BMI of 45.0-49.9, adult Procedure/Surgical History Lap Gastric Revision Service Date: 06/20/2021 Lap Sleeve Gastrectomy Service Date: 09/30/2017 fusion of L4-L5 Hysterectomy history of tubal ligation Cholecystectomy Medications ALPRAZolam(ALPRAZolam 1 mg oral tablet), 1 mg= 1 Tablet(s), Oral, tid, PRN APAP/butalbital/caffeine(APAP/butalbita l/caffeine 325 mg-50 mg-40 mg oral capsule), 1 capsule(s), Oral, q4h, PRN atorvastatin(atorvastatin 40 mg oral tablet), 40 mg= 1 Tablet(s), Oral, Daily biotin(biotin 5 mg oral capsule), 5 mg= 1 capsule(s), Oral, Daily calcium-vitamin D(calcium-vitamin D 500 mg-5 mcg (200 intl units) oral tablet), 1 Tablet(s), Oral, bid cetirizine(cetirizine 10 mg oral tablet), 10 mg= 1 Tablet(s), Oral, At Bedtime cyclobenzaprine(cyclobenzaprine 10 mg oral tablet), 10 mg= 1 Tablet(s), Oral, bid docusate(docusate sodium 100 mg oral capsule), 100 mg= 1 capsule(s), Oral, bid, PRN furosemide(furosemide 40 mg oral tablet), 40 mg= 1 Tablet(s), Oral, Daily gabapentin(gabapentin 600 mg oral tablet), 600 mg= 1 Tablet(s), Oral, tid metoprolol(metoprolol tartrate 50 mg oral tablet), 25 mg= 0.5 Tablet(s), Oral, bid Miscellaneous Medication multivitamin(ProCare Bariatric Vitamin), 1 Tablet(s), Oral, Daily pantoprazole(Protonix 40 mg oral delayed release tablet), 40 mg= 1 Tablet(s), Oral, Daily potassium chloride(Potassium Chloride (Eqv-K-Tab) 20 mEq oral tablet, extended release), 20 mEq= 1 Tablet(s), Oral, Daily QUEtiapine(QUEtiapine 400 mg oral tablet, extended release), 400 mg= 1 Tablet(s), Oral, At Bedtime QUEtiapine(QUEtiapine 50 mg oral tablet, extended release), 50 mg= 1 Tablet(s), Oral, At Bedtime rizatriptan(rizatriptan 10 mg oral tablet, disintegrating), 10 mg= 1 Tablet(s), Oral, Daily, PRN tiZANidine(tiZANidine 4 mg oral tablet), 4 mg= 1 Tablet(s), Oral, q8h, PRN topiramate(topiramate 25 mg oral tablet), 25 mg= 1 Tablet(s), Oral, bid traMADol(traMADol 50 mg oral tablet), 50 mg= 1 Tablet(s), Oral, q6h, PRN Allergies Adhesive bandage [place] Trintellix alpha-glucosidase containing compounds Social History Smoking Status Never smoker Tobacco Smoking HistoryNever smoker Family History Cervical cancer: Mother. Obesity: Mother. Pulmonary embolism: Negative: Mother. Venous embolism: Negative: Mother. Health Status Family Member(s) Father: History is unknown Immunizations Health Maintenance Lab Results Diagnostic Results Visit Information Attending Physician: Caro BALDWIN Primary Care Physician: Ml Phillips DO Visit Date: 06/26/2024 06/26/2024 History and Physicals Results Value Date Source History and Physical Admission Note Dar can I have examined the patient. A full history and physical has been documented on ____12/16____ by ____Dr. Cramer____. There is no change in the patient's condition and we will proceed with the plan of care as previously documented. We will not perform umbilicoplasty but will excise fat necrosis and perform scar revision 01/01/2025 Vital Signs Vital Sign Value Date Comments Source Heart Rate 89 bpm 12/16/2024 14:38:00 [facility] BMI 31.3 kg/m2 12/16/2024 14:38:00 [facility] Temperature (Celsius) 36.2 Ge[place]anna 12/16/2024 14:38:00 [facility] BSA Georgina 1.82 12/16/2024 14:38:00 [facility] Height (cm) 159.2 cm 12/16/2024 14:38:00 [facility] Weight (kg) 79.4 kg 12/16/2024 14:38:00 [facility] SBP NIBP 101 mm[Hg] 12/16/2024 14:38:00 [facility] DBP NIBP 67 mm[Hg] 12/16/2024 14:38:00 [facility] Weight (kg) 80.5 kg 11/30/2024 18:00:00 [facility] BMI 30.7 kg/m2 11/30/2024 18:00:00 [facility] Height (cm) 162 cm 11/30/2024 18:00:00 [facility] Heart Rate 97 bpm 11/30/2024 18:00:00 [facility] SpO2 99 % 11/30/2024 18:00:00 [facility] Respiratory Rate 18 breaths/min 11/30/2024 18:00:00 [facility] BSA Georgina 1.85 11/30/2024 18:00:00 [facility] SBP NIBP 103 mm[Hg] 11/30/2024 18:00:00 [facility] DBP NIBP 72 mm[Hg] 11/30/2024 18:00:00 [facility] Height (cm) 162 cm 11/02/2024 18:05:00 [facility] Heart Rate 97 bpm 11/02/2024 18:05:00 [facility] BMI 32.3 kg/m2 11/02/2024 18:05:00 [facility] Respiratory Rate 16 breaths/min 11/02/2024 18:05:00 [facility] BSA Georgina 1.9 11/02/2024 18:05:00 [facility] SBP NIBP 106 mm[Hg] 11/02/2024 18:05:00 [facility] DBP NIBP 73 mm[Hg] 11/02/2024 18:05:00 [facility] Weight (kg) 84.8 kg 11/02/2024 18:05:00 [facility] SpO2 98 % 11/02/2024 18:05:00 [facility] Heart Rate 100 bpm 10/02/2024 20:10:00 [facility] Weight (kg) 82.2 kg 10/02/2024 20:10:00 [facility] BMI 31.3 kg/m2 10/02/2024 20:10:00 [facility] SBP NIBP 113 mm[Hg] 10/02/2024 20:10:00 [facility] DBP NIBP 76 mm[Hg] 10/02/2024 20:10:00 [facility] SpO2 97 % 10/02/2024 20:10:00 [facility] Height (cm) 162 cm 10/02/2024 20:10:00 [facility] BSA Georgina 1.87 10/02/2024 20:10:00 [facility] Weight (kg) 82.1 kg 09/09/2024 19:21:00 [facility] Temperature (Celsius) 36.6 [place]ov[place] 09/09/2024 19:21:00 [facility] BMI 31.4 kg/m2 09/09/2024 19:21:00 [facility] Height (cm) 161.7 cm 09/09/2024 19:21:00 [facility] BSA Georgina 1.87 09/09/2024 19:21:00 [facility] Heart Rate 123 bpm 09/09/2024 19:21:00 [facility] SBP NIBP 101 mm[Hg] 09/09/2024 19:21:00 [facility] DBP NIBP 72 mm[Hg] 09/09/2024 19:21:00 [facility] SBP NIBP 119 mm[Hg] 07/31/2024 19:30:00 [facility] DBP NIBP 83 mm[Hg] 07/31/2024 19:30:00 [facility] Heart Rate 107 bpm 07/31/2024 19:30:00 [facility] SpO2 96 % 07/31/2024 19:30:00 [facility] BSA Georgina 1.9 07/31/2024 19:30:00 [facility] Respiratory Rate 12 breaths/min 07/31/2024 19:30:00 [facility] Weight (kg) 85.5 kg 07/31/2024 19:30:00 [facility] Height (cm) 162 cm 07/31/2024 19:30:00 [facility] BMI 32.6 kg/m2 07/31/2024 19:30:00 [facility] Heart Rate 92 bpm 06/26/2024 19:27:00 [facility] SBP NIBP 116 mm[Hg] 06/26/2024 19:27:00 [facility] DBP NIBP 81 mm[Hg] 06/26/2024 19:27:00 [facility] Height (cm) 162 cm 06/26/2024 19:27:00 [facility] Weight (kg) 89 kg 06/26/2024 19:27:00 [facility] BMI 33.9 kg/m2 06/26/2024 19:27:00 [facility] BSA Georgina 1.94 06/26/2024 19:27:00 [facility] SpO2 93 % 06/26/2024 19:27:00 [facility] Encounters Location Location Details Encounter Type Encounter Number Reason For Visit Attending Provider ADM Date DC Date Status Source [facility] [id number] Devon Lemons 05/11 15:39 :49 05/12 04:59 :59 [facility] [id number] Caro Flores 06/26 19:22 :10 06/27 05:59 :59 [facility] [id number] Devon Lemons 06/29 17:00 :55 06/30 05:59 :59 [facility] [id number] Caro Flores 07/31 18:48 :10 08/01 05:59 :59 [facility] [id number] Nilo Almodovar 07/31 20:02 :47 08/01 05:59 :59 [facility] [id number] Devon Lemons 09/09 19:18 :59 09/10 05:59 :59 [facility] [id number] Caro Mark 10/02 19:53 :03 10/03 05:59 :59 [facility] [id number] Caro Garcia 11/02 17:59 :44 11/03 04:59 :59 [facility] [id number] Caro Garcia 11/30 17:52 :06 12/01 04:59 :59 [facility] [id number] Devon Lemons 12/16 14:32 :47 12/17 04:59 :59 [facility] [id number] Devon Leomns 01/01 09:42 :01 01/01 16:57 :00 [facility] Nurse Phone Call Clinic [id number] Arthur Childs 01/01 12:57 :53 01/02 04:59 :59 [facility] [id number] Devon Lemons 01/18 15:04 :20 01/19 04:59 :59 [facility] [id number] Caro Garcia 01/18 18:55 :04 01/19 04:59 :59 [facility] [id number] Devon Lemons 02/15 13:56 :21 02/16 04:59 :59 [facility] [id number] Francisco Snowden 03/01 15:28 :46 03/02 04:59 :59 [facility] POC POC NO TECHBILL [id number] [facility] 3-19 #7 NURSE PHONE CALL Cancel [facility] Physicia ns Pre-oper ative Clinic [facility] NO TECHBILL [id number] BARIATRIC PSYCH EVAL Lisbet García Cancel [facility] OUTPATIENT [id number] SOV 1 OF 1 Aruna Bettye Cancel [facility] OUTPATIENT [id number] SOV 1 OF 1 Cancel [facility] [facility] [id number] SOV 1 OF 1 [facility] [id number] SOV 1 OF 1 Aruna Bettye Cancel [facility] [id number] CLASS: YEARLY SLEEVE 09/30/17 Cancel [facility] [id number] CLASS: YEARLY SLEEVE 09/30/17 [facility]ancel [facility] [id number] CLASS: DOSA SLEEVE DOS PREOP Shasha Chilango Cancel [facility] Procedures Procedure Code Date Perfomer Comments Source Cholecystectomy [facility] fusion of L4-L5 [facility] history of tubal ligation [facility] Social History Social History Date Source Social History TypeResponse Sex Female Sex Representation Female (finding) 03/02/2025 [facility] Social History TypeResponse Sex Female Sex Representation Female (finding) 02/16/2025 - [facility] Social History TypeResponse Sex Female Sex Representation Female (finding) 01/19/2025 [facility] Social History TypeResponse Sex Female Sex Representation Female (finding) 01/02/2025 [facility] Social History TypeResponse Sex Female Sex Representation Female (finding) 01/01/2025 [facility] Social History TypeResponse Sex Female Sex Representation Female (finding) 12/17/2024 [facility] Social History TypeResponse Sex Female Sex Representation Female (finding) 12/01/2024 [facility] Social History TypeResponse Sex Female Sex Representation Female (finding) 11/03/2024 [facility] Social History TypeResponse Sex Female Sex Representation Female (finding) 10/03/2024 [facility] Social History TypeResponse Sex Female Sex Representation Female (finding) 09/10/2024 [facility] Social History TypeResponse Sex Female Sex Representation Female (finding) 08/01/2024 [facility] Social History TypeResponse Sex Female Sex Representation Female (finding) 06/30/2024 [facility] Social History TypeResponse Sex Female Sex Representation Female (finding) 06/27/2024 [facility] Social History TypeResponse Sex Female Sex Representation Female (finding) 05/12/2024 [facility]
[2025-04-24] MEDS: EPINEPHrine 0.1 mg/mL SYR 10 mL 1 MG IVP ×8 (11:17→11:49)
--- OUTSIDE RECORDS SUMMARY | 2025-04-24 11:18 | XMS_ITS | Encounter Summary ---
Author Organization [facility] Address [address] [place] [address] Care Team Providers Care Transportation Engineering Technician Name Role Phone AlanMl velez Primary Care Provider Encounter Details Date Type Department Care Team (Latest Contact Info) Description 02/14/1999 Outpatient Historical [facility] Medicine [place] [address] [phone] Meena Miramontes MD [address] [place] [phone] Urinary tract infection, site not specified (Primary Dx); Vaginitis and vulvovaginitis, unspecified; Unspecified symptom associated with female genital organs Social History Tobacco Use Types Packs/Day Years Used Date Smoking Tobacco: Never Assessed Comments Unknown Sex and Gender Information Value Date Recorded Sex Assigned at Not on file Legal Sex Female 5:11 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 Gender Identity Not on file Sexual Orientation Not on file documented as of this encounter Plan of Treatment Not on file documented as of this encounter Visit Diagnoses Diagnosis Urinary tract infection, site not specified- Primary Vaginitis and vulvovaginitis, unspecified Unspecified symptom associated with female genital organs documented in this encounter Additional Health Concerns Infection Onset Date Last Indicated Resolved Time R/O COVID-19 02/08/2021 02/08/2021 02/09/2021 10:4 9 AM CDT documented as of this encounter Care Teams Transportation Engineering Technician Relationship Specialty Start Date End Date Ml Phillips DO [address] [place] [phone] PCP - General Family Practice 09/11/16 documented as of this encounter
--- OUTSIDE RECORDS SUMMARY | 2025-04-24 11:18 | XMS_ITS | Encounter Summary ---
Author Organization [facility] Address [address] [place] [address] Care Team Providers Care Land Surveyor Manager Name Role Phone Ml Phillips DO Primary Care Provider Encounter Details Date Type Department Care Team (Latest Contact Info) Description 03/07/1999 Outpatient Historical [facility] Medicine [place] [address] [phone] Meena Miramontes MD [address] [place] [phone] Unspecified symptom associated with female genital organs (Primary Dx); Leukorrhea, not specified as infective Social History Tobacco Use Types Packs/Day Years Used Date Smoking Tobacco: Never Assessed Comments Unknown Sex and Gender Information Value Date Recorded Sex Assigned at Not on file Legal Sex Female 5:11 AM RETAIL ACCOUNT SPECIALIST Gender Identity Not on file Sexual Orientation Not on file documented as of this encounter Plan of Treatment Not on file documented as of this encounter Visit Diagnoses Diagnosis Unspecified symptom associated with female genital organs- Primary Leukorrhea, not specified as infective documented in this encounter Additional Health Concerns Infection Onset Date Last Indicated Resolved Time R/O COVID-19 02/08/2021 02/08/2021 02/09/2021 10:4 9 AM CDT documented as of this encounter Care Teams Land Surveyor Manager Relationship Specialty Start Date End Date Ml Phillips DO [address] [place] [address] PCP - General Family Practice 09/11/16 documented as of this encounter
--- OUTSIDE RECORDS SUMMARY | 2025-04-24 11:18 | XMS_ITS | Clinical Summary ---
Author Organization [facility] Address [address] [place] [address] Care Team Providers Care Aircraft Powerplant Repairer Name Role Phone AlanMl Meg JONES Primary Care Provider Allergies Active Allergy Reactions Criticality Noted Date Comments Adhesive Tape-Silicones Rash Low 09/11/2016 Vortioxetine Other (See Comments) 08/27/2019 Patient reported tunnel vision and blurred vision Medications CALCIUM CITRATE/VITAMIN D3 (CALCIUM CITRATE + D ORAL) Take 1 Tablet by mouth 2 times daily. Active OTHER Bariatric multivitamin plus collagen and biotin at , receives through the [facility] at [place]. Active Blood-Glucose Meter (CONTOUR METER) Test sugars daily and prn. 1 Each 9 Active fluvoxaMINE (LUVOX CR) 150 mg Controlled Release 24 hour capsule TAKE 2 CAPSULES BY MOUTH AT 7PM. 0 9 Active acetaminophen (TYLENOL) 500 mg tabletIndicatio ns:pain Take 1,000 mg by mouth 2 times daily. Active QUEtiapine (SEROquel) 200 mg tablet Take 400 mg by mouth daily. Active QUEtiapine (SEROquel) 400 mg tablet Take 400 mg by mouth daily at bedtime. Active cetirizine (ZyrTEC) 10 mg tablet TAKE 1 TABLET BY MOUTH ONCE A DAY 30 Tablet 10 0 Active esomeprazole (NexIUM) 40 mg Capsule, Delayed Release(E.C.) Take 1 Capsule (40 mg) by mouth daily before breakfast. 90 Capsule 4 0 Active Nystop 100,000 unit/gram powderIndicatio ns:Skin yeast infection APPLY UNDER ABDOMINAL FOLD TWICE DAILY FOR 14 DAYS UNTIL RASH IS GONE. 60 Gram 4 0 Active diclofenac sodium (VOLTAREN) 1 % gelIndications: Chronic neck pain Apply 4 Grams to affected area 4 times daily. 100 Gram 6 1 Active fluticasone propionate (FLONASE) 50 mcg/spray [place], Suspension nasal inhalerIndicati ons:Environment al allergies Administer 2 Sprays in each nostril daily. 16 Gram 11 1 Active glimepiride (AMARYL) 4 mg tabletIndicatio ns:Type 2 diabetes mellitus without complication, without long-term current use of insulin ([facility]) TAKE 1 TABLET BY MOUTH EVERY DAY WITH BREAKFAST 90 Tablet 1 1 Active oxyCODONE-aceta minophen (PERCOCET) 10-325 mg TabletIndicatio ns:Chronic left-sided low back pain with left-sided sciatica,L4-L5 disc bulge TAKE 1 TABLET BY MOUTH 3 TIMES DAILY NEEDED FOR PAIN, SEVERE. MAX DAILY AMOUNT: 3 TABLETS 90 Tablet 1 Active diltiaZEM (TIAZAC) 360 mg Extended Release capsule TAKE 1 CAPSULE BY MOUTH EVERY DAY 90 Capsule 4 1 Active tiZANidine (ZANAFLEX) 4 mg TabletIndicatio ns:Chronic left-sided low back pain with left-sided sciatica TAKE 1 TABLET BY MOUTH EVERY 8 HOURS NEEDED FOR SPASM 90 Tablet 1 Active butalbital-acet aminophen-caffe ine (FIORICET) 50-325-40 mg tabletIndicatio ns:Migraine without aura and without status migrainosus, not intractable Take 1 Tablet by mouth every 4 hours as needed for Migraine. 60 Tablet 11 1 Active baclofen (LIORESAL) 10 mg tabletIndicatio ns:Chronic left-sided low back pain with left-sided sciatica TAKE 1 TABLET BY MOUTH 3 TIMES DAILY. 90 Tablet 4 1 Active ALPRAZolam (XANAX) 1 mg tabletIndicatio ns:Generalized anxiety disorder TAKE 1 TABLET BY MOUTH 3 TIMES DAILY NEEDED FOR ANXIETY. 90 Tablet 1 1 Active metoprolol tartrate (LOPRESSOR) 50 mg tablet TAKE 1 AND 1/2 TABLETS BY MOUTH 2 TIMES DAILY. 90 Tablet 4 1 Active hydrOXYzine HCL (ATARAX) 25 mg tabletIndicatio ns:Generalized anxiety disorder TAKE 1 TO 2 TABLETS BY MOUTH THREE TIMES DAILY NEEDED FOR ITCHING 270 Tablet 4 1 Active ibuprofen (MOTRIN) 600 mg tablet TAKE 1 TABLET BY MOUTH THREE TIMES DAILY 90 Tablet 4 1 Active cyclobenzaprine (FLEXERIL) 10 mg tablet TAKE 1 TABLET BY MOUTH 3 TIMES DAILY NEEDED FOR SPASM. 90 Tablet 1 Active gabapentin (NEURONTIN) 600 mg tabletIndicatio ns:Chronic left-sided low back pain with left-sided sciatica TAKE 1 TABLET BY MOUTH THREE TIMES DAILY 270 Tablet 1 Active meclizine (ANTIVERT) 25 mg tablet TAKE 1 TABLET (25 MG) BY MOUTH 3 TIMES DAILY NEEDED FOR DIZZINESS. 180 Tablet 1 Active traMADoL (ULTRAM) 50 mg tabletIndicatio ns:Chronic left-sided low back pain with left-sided sciatica,L4-L5 disc bulge TAKE 1 TABLET BY MOUTH THREE TIMES DAILY NEEDED FOR PAIN 90 Tablet 1 1 Active potassium chloride (KLOR-CON) 20 mEq Extended Release tablet TAKE 1 TABLET BY MOUTH DAILY. 90 Tablet 1 Active furosemide (LASIX) 40 mg tablet TAKE 1 TABLET (40 MG) BY MOUTH 1 TIME DAILY NEEDED (SWELLING). 90 Tablet 1 Active blood sugar diagnostic (Ascensia CONTOUR) StripIndication s:Type 2 diabetes mellitus without complication, without long-term current use of insulin ([facility]) Test blood sugars daily and prn 50 Each 1 Active benzonatate (TESSALON) 200 mg capsuleIndicati ons:Cough Take 1 Capsule (200 mg) by mouth 3 times daily. 30 Capsule 1 Active blood sugar diagnostic Strip Test blood sugars daily and prn 100 Each 4 1 Active Active Problems Problem Noted Date Diagnosed Date Migraine without aura and wi thout status migrainosus, not intractable 02/01/2021 PTSD (post-traumatic stress disorder) 09/25/2019 Mixed obsessional thoughts and acts 09/25/2019 Chronic neck pain 11/10/2018 S/P gastric surgery 04/15/2018 Type 2 diabetes mellitus wit hout complication, without long-term current use of insulin 02/13/2018 Generalized anxiety disorder 11/28/2017 Postoperative malabsorption 11/28/2017 History of gastrointestinal ulcer 12/19/2016 Chronic left-sided low back pain with left-sided sciatica 09/24/2016 S/P discectomy for herniated nucleus pulposus Morbid obesity with body mass index (BMI) of 40. 0 to 49.9 09/23/2016 Seasonal allergic rhinitis due to pollen 015 Resolved Problems Problem Noted Date Diagnosed Date Resolved Date Chest pain 04/13/2020 02/01/2021 Overview (04/18/2020): Added automatically from request for surgery [id number] Tachycardia 08/28/2019 02/01/2021 Family History Medical History Relation Name Comments COPD Brother Healthy Daughter Breast Cancer Maternal Grandmother Other Sister 1 Healthy Sister 2 Other Son Relation Name Status Comments Brother Alive Daughter Alive Father Maternal Grandfather Maternal Grandmother Mother Paternal Grandfather Paternal Grandmother Sister 1 Alive Sister 2 Alive Son Alive Social History Tobacco Use Types Packs/Day Years Used Date Smoking Tobacco: Never Smokeless Tobacco: Never Tobacco Cessation:Counseling Given: Yes Alcohol Use Standard Drinks/Week Comments No 0 (1 standard drink = 0.6 oz pur e alcohol) Comments No Sex and Gender Information Value Date Recorded Sex Assigned at Not on file Legal Sex Female 5:11 AM BAGGAGE INSPECTOR Gender Identity Not on file Sexual Orientation Not on file Last Filed Vital Signs Vital Sign Reading Time Taken Comments Blood Pressure 90/58 02/08/2021 11:07 AM CDT Pulse 86 02/08/2021 11:07 AM CDT Temperature 36.5 C (97.7 F) 02/08/2021 11:07 AM CDT Respiratory Rate 18 01/20/2021 3:12 PM CDT Oxygen Saturation 98% 02/08/2021 11:07 AM CDT Inhaled Oxygen Concentration - - Weight 113.9 kg (251 lb) 02/08/2021 11:07 AM CDT Height 160 cm (5' 3 ) 02/08/2021 11:07 AM CDT Body Mass Index 44.46 02/08/2021 11:07 AM CDT Plan of Treatment Health Maintenance Due Date Last Done Comments DTAP/TDAP/TD VACCINES (1 - Tdap) 1994 HEPATITIS B VACCINES (1 of 3 - 19+ 3-dose series) 1994 BREAST CANCER SCREENING 06/12/2020 06/12/2019 COLORECTAL SCREENING 2020 Colorectal Cancer Screening 2020 FIT-DNA Q 3 years 2020 FIT/FOBT Q 1 year 2020 Flex Sig/CT Colonography Q 5 years 2020 DIABETES MICROALBUMIN ANNUAL SCREEN 09/25/2020 09/25/2019 DIABETES HBA1C Q 6 MONTHS 11/14/20202019, 04/04/2020, 10/28/2017, Additional history exists LDL CHOLESTEROL ANNUAL 09/15/2021 , 05/17/2020, 04/04/2020, Additional history exists DIABETES ANNUAL FOOT EXAM 01/20/2022 01/20/2021 Preventative Visit-Managed Medicaid 07/17/2024 07/16/2023 INFLUENZA VACCINE (#1) 2025 08/20/2019, 2017 DIABETES ANNUAL RETINAL EXAM 07/08/2025 07/08/2024, 07/20/2021 PAP SMEAR 07/16/2026 07/16/2023, 02/2019, 01/26/1999 CERVICAL CANCER SCREENING 07/16/2028 HPV/Cotest (21-29) 07/16/2028 07/16/2023 HPV/Cotest (30-65) 07/16/2028 07/16/2023 Procedures Procedure Name Priority Date/Time Associated Diagnosis Comments LIPID PANEL Routine 09/15/2020 HEMOGLOBIN A1C Routine 04/04/2020 10:33 AM CDT Type 2 diabetes mellitus without complication, without long-term current use of insulin ([facility]) MICROALBUMIN/CREATIN INE RATIO, RANDOM UR Routine 09/25/2019 4:44 PM BAGGAGE INSPECTOR Type 2 diabetes mellitus without complication, without long-term current use of insulin ([facility]) MAMMO SCREEN BILAT W OR WO CAD Routine 06/12/2019 from Last 3 Months or Most Recently Relevant to Health Maintenance Results * LIPID PANEL (09/15/2020) ABSTRACTED CHOLESTEROL 226 EXTERNAL LAB ABSTRACTED TRIGLYCERIDE 172 EXTERNAL LAB ABSTRACTED HDL 75 EXTERNAL LAB ABSTRACTED LDL CALCULATED 117 EXTERNAL LAB CHOLESTEROL EXTERNAL LAB TRIGLYCERIDE EXTERNAL LAB HDL EXTERNAL LAB LDL CALCULATED EXTERNAL LAB Blood 09/15/2020 us Abstract Spg Provider CHEMISTRY ORDERABLES Final Result EXTERNAL LAB * (ABNORMAL) HEMOGLOBIN A1C (04/04/2020 10:33 AM CDT) HEMOGLOBIN A1C 6.4(H) See Comment % 04/04/2020 8:45 PM CDT [facility] EST. AVG GLUCOSE, A1C 137 mg/dL 04/04/2020 8:45 PM CDT [facility] Blood Venipuncture / Unknown 04/04/2020 10:33 AM CDT 04/04/2020 8:19 PM CDT Narrative [facility] - 04/04/2020 8:45 PM CDT HGB A1C INTERPRETATION NORMAL: <5.7% PRE-DIABETES: 5.7 - 6.4% DIABETES: 6.5% OR GREATER Falsely low A1C measurements can occur when: 1. Anemia and/or hemolytic anemia is present. 2. Hemoglobin variants present. 3. Renal failure. 4. Transfusion of blood product in the last 120 days. We recommend ordering a fructosamine test([id number]) to more accurately assess glycemic status if any of the above conditions are present. us Ml Phillips DO CHEMISTRY ORDERABLES Final Result [facility] CLIA# [id number] [facility] [place] [address] * MICROALBUMIN/CREATININE RATIO, RANDOM UR (09/25/2019 4:44 PM BAGGAGE INSPECTOR) MICROALBUMIN, URINE <1.2 No Reference Range mg/dL 09/25/2019 8:58 PM BAGGAGE INSPECTOR [facility] CREATININE, URINE 52.3 29.0 - 226.0 mg/dL 09/25/2019 8:58 PM BAGGAGE INSPECTOR [facility] Comment:Reference Range vari es with fluid intake and diet. MICROALBUMIN/C REAT RATIO, UR <22.9 <25.0 mg/g 09/25/2019 8:58 PM BAGGAGE INSPECTOR [facility] Urine URINE SPECIMEN OBTAINED BY CLEAN CATCH PROCEDURE / Unknown Collection / Unknown 09/25/2019 4:44 PM BAGGAGE INSPECTOR 09/25/2019 8:22 PM BAGGAGE INSPECTOR Narrative [facility] - 09/25/2019 8:58 PM BAGGAGE INSPECTOR Condition Microalbumin/Creat ratio Normal Males <17 Normal Females <25 Microalbuminuria Males 17-299 Microalbuminuria Females 25-299 Overt proteinuria >=300 Ml Phillips DO URINE ORDERABLES Final Resu lt [facility] IA# [id number] [address] [place] [id number] * MAMMO SCREEN BILAT W OR WO CAD (06/12/2019) Anatomical Region Laterality Modality Breast Bilateral Mammography Ml Phillips DO MAMMO ORDERABLES Edited Res ult - Final from Last 3 Months or Most Recently Relevant to Health Maintenance Insurance [place]ICA[place] [employer] Medicaid Advance Directives For more information, please contact: [phone] * Full Code (Latest Code Status on File) Date Activated Date Inactivated Comments 04/19/2020 8:49 AM 04/19/2020 4:25 PM * Full Code Date Activated Date Inactivated Comments 09/30/2019 7:10 AM 09/30/2019 10:58 AM * Full Code Date Activated Date Inactivated Comments 08/27/2019 7:04 AM 08/29/2019 6:24 PM Care Teams Aircraft Powerplant Repairer Relationship Specialty Start Date End Date Ml Phillips DO [address] [place] [address] PCP - General Family Practice 09/11/16
--- OUTSIDE RECORDS SUMMARY | 2025-04-24 11:18 | XMS_ITS | Encounter Summary ---
Author Organization [facility] Address [address] [place] [address] Care Team Providers Care Sales And Marketing Coordinator Name Role Phone Alan Ml Meg JONES Primary Care Provider [phone]- [phone] Reason for Referral * Outpatient Services (Routine) - Closed Specialty Diagnoses / Procedures Referred By Nuria t Referred To Contact Diagnoses Lumbar radiculitis Procedures XR FLUORO NEEDLE GUIDANCE Paul Delacruz MD [address] [place] [address] Phone: tel: fax: Referral ID Status Reason Start Date Expiration Date Visits Re quested Visits Authorized [id number] Closed 11/12/2016 12/13/2017 1 1 Encounter Details Date Type Department Care Team (Late st Contact Info) Description 11/12/2016 Ancillary Orders [facility] Pain Management Procedures [place] [address] [facility] [address] [facility] [place] [address] Paul Delacruz MD [address] [place] [address] Lumbar radiculitis Social History Tobacco Use Types Packs/Day Years Used Date Smoking Tobacco: Never Smokeless Tobacco: Never Alcohol Use Standard Drinks/Week Comments No 0 (1 standard drink = 0.6 oz pur e alcohol) Comments No Sex and Gender Information Value Date Recorded Sex Assigned at Not on file Legal Sex Female 5:11 AM OYSTER GROWER Gender Identity Not on file Sexual Orientation Not on file documented as of this encounter Plan of Treatment Not on file documented as of this encounter Results * XR FLUORO NEEDLE GUIDANCE (11/12/2016 3:16 PM CDT) Narrative Lan Gay, RT - 11/12/2016 3:16 PM CDT Order information only. Exam was auto-finalized. us Paul Delacruz MD DIAGNOSTIC IMAGING ORDERAB LES Final Result documented in this encounter Visit Diagnoses Diagnosis Lumbar radiculitis Thoracic or lumbosacral neuritis or radiculitis, unspecified Lumbar radiculitis Thoracic or lumbosacral neuritis or radiculitis, unspecified documented in this encounter Additional Health Concerns Infection Onset Date Last Indicated Resolved Time R/O COVID-19 02/08/2021 02/08/2021 02/09/2021 10:4 9 AM CDT documented as of this encounter Care Teams Sales And Marketing Coordinator Relationship Specialty Start Date End Date Ml Phillips DO [address] [place] [address] PCP - General Family Practice 09/11/16 documented as of this encounter
--- OUTSIDE RECORDS SUMMARY | 2025-04-24 11:18 | XMS_ITS | Encounter Summary ---
Author Organization [facility] Address [address] [place] [address] Care Team Providers Care Epic Ambulatory Analysts Name Role Phone Ml Phillips DO Primary Care Provider Encounter Details Date Type Department Care Team (Latest Contact Info) Description 04/18/1999 Outpatient Historical [facility] Tc Gallardo MD NO ADDRESS ON FILE Unspecified symptom associated with female genital organs (Primary Dx) Social History Tobacco Use Types Packs/Day Years Used Date Smoking Tobacco: Never Assessed Comments Unknown Sex and Gender Information Value Date Recorded Sex Assigned at Not on file Legal Sex Female 5:11 AM HOME HEALTH SCHEDULER Gender Identity Not on file Sexual Orientation Not on file documented as of this encounter Plan of Treatment Not on file documented as of this encounter Visit Diagnoses Diagnosis Unspecified symptom associated with female genital organs- Primary documented in this encounter Additional Health Concerns Infection Onset Date Last Indicated Resolved Time R/O COVID-19 02/08/2021 02/08/2021 02/09/2021 10:4 9 AM CDT documented as of this encounter Care Teams Epic Ambulatory Analysts Relationship Specialty Start Date End Date Ml Phillips DO [address] [place] [facility] [place] [address] PCP - General Family Practice 09/11/16 documented as of this encounter
--- OUTSIDE RECORDS SUMMARY | 2025-04-24 11:18 | XMS_ITS | Encounter Summary ---
Author Organization [facility] Address [address] [place] [address] Care Team Providers Care Piecer Up Name Role Phone Ml Phillips DO Primary Care Provider Encounter Details Date Type Department Care Team (Latest Contact Info) Description 01/22/2002 Outpatient Historical [facility] Medicine [place] [address] [phone] Meena Miramontes MD [address] [place] [phone] DIARRHEA NOS (Primary Dx) Social History Tobacco Use Types Packs/Day Years Used Date Smoking Tobacco: Never Assessed Comments Unknown Sex and Gender Information Value Date Recorded Sex Assigned at Not on file Legal Sex Female 5:11 AM SOFTWARE CONFIGURATION ENGINEER Gender Identity Not on file Sexual Orientation Not on file documented as of this encounter Plan of Treatment Not on file documented as of this encounter Visit Diagnoses Diagnosis Diarrhea- Primary documented in this encounter Additional Health Concerns Infection Onset Date Last Indicated Resolved Time R/O COVID-19 02/08/2021 02/08/2021 02/09/2021 10:4 9 AM CDT documented as of this encounter Care Teams Piecer Up Relationship Specialty Start Date End Date Ml Phillips DO [address] [place] [address] PCP - General Family Practice 09/11/16 documented as of this encounter
--- OUTSIDE RECORDS SUMMARY | 2025-04-24 11:18 | XMS_ITS | Encounter Summary ---
Author Organization [facility] Address [address] [place] [address] Care Team Providers Care Plating Operator Name Role Phone Ml Phillips DO Primary Care Provider Encounter Details Date Type Department Care Team (Late st Contact Info) Description 07/01/2019 Ancillary Orders [facility] [address] [place] [address] Ml Phillips DO [address] [place] [address] Breast pain, right Social History Tobacco Use Types Packs/Day Years Used Date Smoking Tobacco: Never Smokeless Tobacco: Never Alcohol Use Standard Drinks/Week Comments No 0 (1 standard drink = 0.6 oz pur e alcohol) Comments No Sex and Gender Information Value Date Recorded Sex Assigned at Not on file Legal Sex Female 5:11 AM WHISKEY FILTERER Gender Identity Not on file Sexual Orientation Not on file documented as of this encounter Plan of Treatment Not on file documented as of this encounter Results * MAMMO PRIOR STUDY (06/12/2019 11:40 AM CDT) Narrative 07/01/2019 11:40 AM WHISKEY FILTERER This exam was auto finalized to allow images to be scanned to PACS. us Ml Phillips DO DIAGNOSTIC IMAGING ORDERABL ES Final Result * MAMMO PRIOR STUDY (08/24/2010 11:45 AM WHISKEY FILTERER) Narrative 07/01/2019 11:41 AM WHISKEY FILTERER This exam was auto finalized to allow images to be scanned to PACS. us Ml Phillips DO DIAGNOSTIC IMAGING ORDERABL ES Final Result * MAMMO PRIOR STUDY (08/24/2010 11:40 AM WHISKEY FILTERER) Narrative 07/01/2019 11:40 AM WHISKEY FILTERER This exam was auto finalized to allow images to be scanned to PACS. us Ml Phillips DO DIAGNOSTIC IMAGING ORDERABL ES Final Result documented in this encounter Visit Diagnoses Diagnosis Breast pain, right Mastodynia Breast pain, right Mastodynia Breast pain, right Mastodynia Breast pain, right Mastodynia documented in this encounter Additional Health Concerns Infection Onset Date Last Indicated Resolved Time R/O COVID-19 02/08/2021 02/08/2021 02/09/2021 10:4 9 AM CDT documented as of this encounter Care Teams Plating Operator Relationship Specialty Start Date End Date Ml Phillips DO [address] [place] [address] PCP - General Family Practice 09/11/16 documented as of this encounter
--- OUTSIDE RECORDS SUMMARY | 2025-04-24 11:18 | XMS_ITS | Encounter Summary ---
Author Organization [facility] Address [address] [place] [address] Care Team Providers Care Turbinated Bone Grinder Name Role Phone Ml Phillips DO Primary Care Provider [phone] Encounter Details Date Type Department Care Team (Late st Contact Info) Description 04/20/2025 External Device Data [facility] ABSTRACTION Provider, Abstract NO ADDRESS ON FILE Social History Tobacco Use Types Packs/Day Years Used Date Smoking Tobacco: Never Passive Smoke Exposure: Never Smokeless Tobacco: Never Alcohol Use Standard Drinks/Week Comments No 0 (1 standard drink = 0.6 oz pur e alcohol) Feeling Safe Answer Date Recorded Are you in a relationship wi th someone who hurts you emotionally and/or physically? No 09/23/2023 Comments No Sex and Gender Information Value Date Recorded Sex Assigned at Not on file Legal Sex Female 3:25 AM EMERGENCY CARE TECH Gender Identity Not on file Sexual Orientation Not on file documented as of this encounter Plan of Treatment Upcoming Encounters Date Type Department Care Team (Late st Contact Info) Description 06/23/2025 10:40 AM EMERGENCY CARE TECH Office Visit [facility] Medicine [place] [address] [place] [phone] Ml Phillips DO [address] [facility] [place] [phone] 07/22/2025 10:20 AM EMERGENCY CARE TECH Office Visit [facility] [address] [place] [phone] Angie Brothers MD [address] [place] [address] Amara Hall, [facility] [address] [place] [phone] documented as of this encounter Visit Diagnoses Not on filedocumented in this encounter Additional Health Concerns Assessment Noted Time PHQ-9 Depression Total Score: 1 08/24/19 25 1:29 PM EMERGENCY CARE TECH documented as of this encounter Care Teams Turbinated Bone Grinder Relationship Specialty Start Date End Date Ml Phillips DO [address] [place] [phone] PCP - General Family Practice 09/11/16 documented as of this encounter
--- OUTSIDE RECORDS SUMMARY | 2025-04-24 11:18 | XMS_ITS | Encounter Summary ---
Author Organization [facility] Address [address] [place] [address] Care Team Providers Care Driver/Merchandiser Name Role Phone Ml Phillips DO Primary Care Provider [phone]- [phone] Encounter Details Date Type Department Care Team [...] on file Legal Sex Female 3:25 AM FOREST OFFICER Gender Identity Not on file Sexual Orientation Not on file documented as of this encounter Plan of Treatment Upcoming Encounters Date Type Department Care Team (Late st Contact Info) Description 06/23/2025 10:40 AM FOREST OFFICER Office Visit [facility] Medicine [place] [address] [place] [phone] Ml Phillips DO [address] [facility] [place] [phone] 07/22/2025 10:20 AM FOREST OFFICER Office Visit [facility] [address] [place] [address] Angie Brothers MD [address] [place] [address] Amara Hall, [facility] [address] [place] [address] documented as of this encounter Visit Diagnoses Not on filedocumented in this encounter Additional Health Concerns Assessment Noted Time PHQ-9 Depression Total Score: 1 08/24/19 25 1:29 PM FOREST OFFICER documented as of this encounter Care Teams Driver/Merchandiser Relationship Specialty Start Date End Date Ml Phillips DO [address] [place] [phone] PCP - General Family Practice 09/11/16 documented as of this encounter
--- OUTSIDE RECORDS SUMMARY | 2025-04-24 11:18 | XMS_ITS | Encounter Summary ---
Author Organization [facility] Address [address] [place] [address] Care Team Providers Care Lean Sensei Name Role Phone Ml Phillips DO Primary Care Provider [phone] Reason for Visit * Reason Comments Advice Only Patient Communication Encounter Details Date Type Department Care Team (Late st Contact Info) Description 04/16/2025 Telephone [facility] [place] [address] [place] [address] Ml Phillips DO [address] [place] [address] Advice Only; Patient Communication Social History Tobacco Use Types Packs/Day Years [...] on file Legal Sex Female 3:25 AM BUDGET RECORD CLERK Gender Identity Not on file Sexual Orientation Not on file documented as of this encounter Miscellaneous Notes * Telephone Encounter - Ml Phillips DO - 04/22/2025 9:05 AM CDT I did bump her up to 800mg three times a day and yes she needs to follow up with the surgeon. I can't keep her on the oxycodone terminal computer operator and especially not in combination with the xanax. * Telephone Encounter - Makayla Yepez LPN - 04/21/2025 10:36 AM CDT 04/21/2025 10:36 AM I spoke with pt and she verbalized understanding. She would like to know what she should increase her gabapentin to and that she will also contact her surgeon. Makayla NICHOLE * Telephone Encounter - Ml Phillips DO - 04/21/2025 10:28 AM CDT She can bump up the gabapentin but tell her if the pain is in her abdomen since surgery she needs to contact the surgeon if it is still that bad. * Telephone Encounter - Makayla Yepez LPN - 04/20/2025 10:15 AM CDT 04/20/2025 10:15 AM Spoke with pt and advised her of message from provider and pt verbalized understanding. Pt stated pain is not better. Pt is wanting to know if she needs or could increase her gabapentin to see if that helps. Says she is taking 600 mg TID. Makayla NICHOLE * Telephone Encounter - Sweetie Ugalde - 04/20/2025 9:55 AM CDT Copied from [facility] #[id number]. Topic: CPA Information Request >> Apr 20, 2025 9:54 AM Sweetie Vicente wrote: Caller is returning phone call from clinic. Caller Name: PT Patient/Caregiver Callback Number: Telephone Information: Clinic Left Note In Chart Is there a note from the clinic requesting the caller be transferred when they call back? No Are the credentials of the caregiver who called the patient cash office worker? Yes Call Notes: Did not communicate information that is documented in the note because . Caller needs the clinic to call them back. * Telephone Encounter - Makayla Yepez LPN - 04/20/2025 9:30 AM CDT 04/20/2025 9:30 AM Returned call. No answer. Left voice mail/message to return our call. If patient/caregiver calls back, contact center please inform caller to expect a return call from the clinic. Makayla NICHOLE * Telephone Encounter - lM Phillips DO - 04/16/2025 4:04 PM CDT Just explain that new guidelines now suggest that you don't take alprazolam with a narcotic like oxycodone. Is her pain doing any better? We could go back to tramadol if it is and then I don't worry about the xanax as much as I would in combination with the oxycodone. * Telephone Encounter - Makayla Yepez LPN - 04/16/2025 3:19 PM CDT 04/16/2025 3:19 PM I returned pt's call and advised her on script that was sent in back in February Dr. Phillips was wanting pt to ween down to on daily PRN on the xanax. Pt stated she did not think she could do just one daily and is wanting to go back to twice daily if possible. Said she would be picking at her stomach and face if she is only taking this once daily. Makayla NICHOLE * Telephone Encounter - Marta Espinoza - 04/16/2025 1:31 PM CDT Copied from [facility] #[id number]. Topic: CPA Information Request - Appointment/Location Information >> Apr 16, 2025 1:29 PM Marta Dobson wrote: Caller is requesting the following information: Other Caller Notes (Not Required): The patient says she picked up her Alprazolam and it is only written to take once daily. She said she has gone from 3 pills a day, down to 2, and she had no idea the provider was changing the frequency of the Alprazolam. Please give her a call back to discuss. Ask if caller would like to also receive a link in [employer] to view the details for the upcoming appointments. Would caller like [employer] message with link to appointment details? No Patient Access Instructions 1. Link appointment in attachment section below. 2. Select Resolve Reason and Click Close CRM. documented in this encounter Plan of Treatment Upcoming Encounters Date Type Department Care Team (Late st Contact Info) Description 06/23/2025 10:40 AM BUDGET RECORD CLERK Office Visit [facility] [place] [address] [place] [address] Ml Phillips, [address] [place] [address] 07/22/2025 10:20 AM BUDGET RECORD CLERK Office Visit [facility] [address] [place] [phone] Angie Brothers MD [address] [place] [address] Amara Hall, CREDIT SPECIALIST-FIRE PREVENTION FORESTER [address] [place] [phone] documented as of this encounter Visit Diagnoses Not on filedocumented in this encounter Additional Health Concerns Assessment Noted Time PHQ-9 Depression Total Score: 1 08/24/19 25 1:29 PM BUDGET RECORD CLERK documented as of this encounter Care Teams Lean Sensei Relationship Specialty Start Date End Date Ml Phillips DO [address] [place] [phone] PCP - General Family Practice 09/11/16 documented as of this encounter
--- OUTSIDE RECORDS SUMMARY | 2025-04-24 11:18 | XMS_ITS | Encounter Summary ---
Author Organization [facility] Address [address] [place] [address] Care Team Providers Care Rn Provider Relations Name Role Phone Ml Phillips DO Primary Care Provider [phone] Encounter Details Date Type Department Care Team (Latest Contact Info) Description 07/02/2019 Ancillary Orders [facility] [address] [place] [address] Ml Phillips DO [address] [place] [address] Inconclusive mammogram Social History Tobacco Use Types Packs/Day Years Used Date Smoking Tobacco: Never Smokeless Tobacco: Never Alcohol Use Standard Drinks/Week Comments No 0 (1 standard drink = 0.6 oz pur e alcohol) Comments No Sex and Gender Information Value Date Recorded Sex Assigned at Not on file 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
--- OUTSIDE RECORDS SUMMARY | 2025-04-24 11:18 | XMS_ITS | Encounter Summary ---
Author Organization [facility] Address [address] [facility] Attn: Epic Prelude ADT [place] [address] Care Team Providers Care Rounding Machine Operator Name Role Phone Ml Phillips DO Primary Care Provider [phone] Encounter Details Date Type Department Care Team (Late st Contact Info) Description 12/22/1999 Outpatient Historical Tc Gallardo MD NO ADDRESS ON FILE Social History Tobacco Use Types Packs/Day Years Used Date Smoking Tobacco: Never Assessed Comments Unknown Sex and Gender Information Value Date Recorded Sex Assigned at Not on file Legal Sex Female 5:11 AM 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
--- OUTSIDE RECORDS SUMMARY | 2025-04-24 11:18 | XMS_ITS | Encounter Summary ---
Author Organization [facility] Address [address] [place] [address] Care Team Providers Care Stationary Engineer Refrigeration Name Role Phone Ml Phillips DO Primary Care Provider Encounter Details Date Type Department Care Team (Latest Contact Info) Description 01/26/2002 Outpatient Historical [facility] Medicine [place] [address] [phone] Meena Miramontes MD [address] [place] [address] ABDOMINAL PAIN UNSPEC SITE (Primary Dx); NEUROTIC DEPRESSION Social History Tobacco Use Types Packs/Day Years Used Date Smoking Tobacco: Never Assessed Comments Unknown Sex and Gender Information Value Date Recorded Sex Assigned at Not on file Legal Sex Female 5:11 AM 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 REDRIER Gender Identity Not on file Sexual Orientation Not on file documented as of this encounter Plan of Treatment Not on file documented as of this encounter Visit Diagnoses Diagnosis Abdominal pain, unspecified site- Primary Dysthymic disorder documented in this encounter Additional Health Concerns Infection Onset Date Last Indicated Resolved Time R/O COVID-19 02/08/2021 02/08/2021 02/09/2021 10:4 9 AM CDT documented as of this encounter Care Teams Stationary Engineer Refrigeration Relationship Specialty Start Date End Date Ml Phillips DO [address] [place] [address] PCP - General Family Practice 09/11/16 documented as of this encounter
--- OUTSIDE RECORDS SUMMARY | 2025-04-24 11:18 | XMS_ITS | Encounter Summary ---
Author Organization [facility] Address [address] [facility] Attn: [place] [address] Care Team Providers Care Scrap Stripper Hand Name Role Phone Ml Phillips DO Primary Care Provider [phone]- [phone] Encounter Details Date Type Department Care Team (Late st Contact Info) Description 01/22/2002 Outpatient Historical Meena Miramontes MD [address] [place] [phone] Social History Tobacco Use Types Packs/Day Years Used Date Smoking Tobacco: Never Assessed Comments Unknown Sex and Gender Information Value Date Recorded Sex Assigned at Not on file 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
--- OUTSIDE RECORDS SUMMARY | 2025-04-24 11:18 | XMS_ITS | Encounter Summary ---
Author Organization [facility] Address [address] [place] [address] Care Team Providers Care Tool Sharpener Name Role Phone AlanMl velez Primary Care Provider Encounter Details Date Type Department Care Team (Latest Contact Info) Description 01/26/1999 Outpatient Historical [facility] Medicine [place] [address] [phone] Meena Miramontes MD [address] [place] [phone] Urinary tract infection, site not specified (Primary Dx); Urge incontinence; Stress incontinence, male; Vaginitis and vulvovaginitis, unspecified Social History Tobacco Use Types Packs/Day Years Used Date Smoking Tobacco: Never Assessed Comments Unknown Sex and Gender Information Value Date Recorded Sex Assigned at Not on file Legal Sex Female 5:11 AM 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 OPERATOR 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 Gender Identity Not on file Sexual Orientation Not on file documented as of this encounter Plan of Treatment Not on file documented as of this encounter Visit Diagnoses Diagnosis Urinary tract infection, site not specified- Primary Urge incontinence Stress incontinence, male Vaginitis and vulvovaginitis, unspecified documented in this encounter Additional Health Concerns Infection Onset Date Last Indicated Resolved Time R/O COVID-19 02/08/2021 02/08/2021 02/09/2021 10:4 9 AM CDT documented as of this encounter Care Teams Tool Sharpener Relationship Specialty Start Date End Date Ml Phillips DO [address] [place] [phone] PCP - General Family Practice 09/11/16 documented as of this encounter
--- OUTSIDE RECORDS SUMMARY | 2025-04-24 11:18 | XMS_ITS | Encounter Summary ---
Author Organization [facility] Address [address] [place] [address] Care Team Providers Care Captain Waiter/Waitress Name Role Phone Ml Phillips DO Primary Care Provider Encounter Details Date Type Department Care Team (Late st Contact Info) Description 11/03/2014 Lab Requisition [facility] [place] [address] [place] [address] Ml Phillips DO [address] [place] [address] Social History Tobacco Use Types Packs/Day Years Used Date Smoking Tobacco: Never Smokeless Tobacco: Never Alcohol Use Standard Drinks/Week Comments No 0 (1 standard drink = 0.6 oz pur e alcohol) Comments No Sex and Gender Information Value Date Recorded Sex Assigned at Not on file Legal Sex Female 5:11 AM HIGH RISK CASE MANAGER Gender Identity Not on file Sexual Orientation Not on file documented as of this encounter Plan of Treatment Not on file documented as of this encounter Procedures Procedure Name Priority Date/Time Associated Diagnosis Comments CBC WITH DIFFERENTIAL Routine 11/03/2014 10:00 AM CDT TSH Routine 11/03/2014 10:00 AM CDT IRON LEVEL Routine 11/03/2014 10:00 AM CDT HEMOGLOBIN A1C Routine 11/03/2014 10:00 AM CDT LIPID PANEL Routine 11/03/2014 10:00 AM CDT COMPREHENSIVE METABOLIC PANEL Routine 11/03/2014 10:00 AM CDT documented in this encounter Results * (ABNORMAL) CBC WITH DIFFERENTIAL (11/03/2014 10:00 AM CDT) [facility] WBC 7.0 4.0 - 10.0 K/uL 11/03/2014 2:08 PM CDT [facility] [place] RBC 5.07 3.93 - 5.22 M/uL 11/03/2014 2:08 PM CDT [facility] [place] HEMOGLOBIN 15.0 11.2 - 15.7 g/dL 11/03/2014 2:08 PM CDT [facility] [place] HEMATOCRIT 43.8 34.1 - 44.9 % 11/03/2014 2:08 PM CDT [facility] [place] MCV 86.4 79.4 - 94.8 fL 11/03/2014 2:08 PM CDT [facility] [place] MCH 29.6 25.6 - 32.2 pg 11/03/2014 2:08 PM CDT [facility] [place] MCHC 34.2 32.2 - 35.5 g/dL 11/03/2014 2:08 PM CDT [facility] [place] RDW 13.1 11.0 - 14.5 % 11/03/2014 2:08 PM CDT [facility] [place] RDW-STDEV 40.3 36.9 - 56.9 fL 11/03/2014 2:08 PM CDT [facility] [place] PLATELETS 205 163 - 337 K/uL 11/03/2014 2:08 PM CDT [facility] [place] MPV 11.5 10.0 - 14.8 fL 11/03/2014 2:08 PM CDT [facility] [place] NEUTROPHILS 64 34 - 71 % 11/03/2014 2:08 PM CDT [facility] [place] LYMPHOCYTES 28 19 - 52 % 11/03/2014 2:08 PM CDT [facility] [place] MONOCYTES 8 5 - 13 % 11/03/2014 2:08 PM CDT [facility] [place] EOSINOPHILS 0(L) 1 - 6 % 11/03/2014 2:08 PM CDT [facility] [place] BASOPHILS 0 0 - 1 % 11/03/2014 2:08 PM CDT [facility] [place] NEUTROPHIL ABSOLUTE 4.44 1.56 - 6.13 K/uL 11/03/2014 2:08 PM CDT [facility] [place] LYMPHOCYTE ABSOLUTE 1.92 1.20 - 3.40 K/uL 11/03/2014 2:08 PM CDT [facility] [place] MONOCYTE ABSOLUTE 0.54(H) 0.24 - 0.36 K/uL 11/03/2014 2:08 PM CDT [facility] [place] EOSINOPHIL ABSOLUTE 0.03(L) 0.04 - 0.36 K/uL 11/03/2014 2:08 PM CDT [facility] [place] BASOPHILS ABSOLUTE 0.01 0.01 - 0.08 K/uL 11/03/2014 2:08 PM CDT [facility] [place] IMMATURE GRANULOCYTES 0 % 11/03/2014 2:08 PM CDT [facility] [place] IMMATURE GRANULOCYTES ABSOLUTE 0.01 K/uL 11/03/2014 2:08 PM CDT [facility] [place] Blood Venipuncture - L ab Collect / Unknown 11/03/2014 10:00 AM CDT 11/03/2014 11:36 AM CDT us Ml Phillips DO HEMATOLOGY ORDERABLES Final Result [facility] [place] CLIA # [id number] [address] [place] [id number] * (ABNORMAL) COMPREHENSIVE METABOLIC PANEL (11/03/2014 10:00 AM CDT) SODIUM 141 136 - 145 mmol/L 11/03/2014 5:10 PM CDT [facility] [place] POTASSIUM 3.8 3.5 - 5.1 mmol/L 11/03/2014 5:10 PM [facility] CHLORIDE 105 98 - 107 mmol/L 11/03/2014 5:10 PM [facility] CO2 22 21 - 32 mmol/L 11/03/2014 5:10 PM [facility] CALCIUM 9.0 8.5 - 10.1 mg/dL 11/03/2014 5:10 PM [facility] BUN 10 7 - 18 mg/dL 11/03/2014 5:10 PM [facility] CREATININE 0.90 0.60 - 1.30 mg/dL 11/03/2014 5:10 PM [facility] GLUCOSE 177(H) 74 - 106 mg/dL 11/03/2014 5:10 PM [facility] TOTAL PROTEIN 7.3 6.4 - 8.2 g/dL 11/03/2014 5:10 PM [facility] ALBUMIN 3.6 3.4 - 5.0 g/dL 11/03/2014 5:10 PM [facility] BILIRUBIN TOTAL 0.4 0.2 - 1.0 mg/dL 11/03/2014 5:10 PM [facility] ALKALINE PHOSPHATASE 138(H) 46 - 116 U/L 11/03/2014 5:10 PM [facility] AST 25 15 - 37 U/L 11/03/2014 5:10 PM [facility] ALT 28(L) 30 - 65 U/L 11/03/2014 5:10 PM [facility] GFR >60 >=60 mL/min/1.7 3 sq meter 11/03/2014 5:10 PM [facility] Comment: eGFR has not been validated for use in the elderly (> 70 years of age), women, patients with serious co-morbid conditions, or persons with extremes of body size or muscle mass and should also be interpreted with caution in patients with acute kidney failure, dialysis dependent patients, patients reporting exceptional dietary intake (e.g. vegetarian diet, high protein diets, creatine supplementation), and patients with severe liver disease. Based on National Kidney Disease Education Program If patient is , please refer to the GFR result. GFR, >60 >=60 mL/min/1.7 3 sq meter 11/03/2014 5:10 PM CDT [facility] ANION GAP 14 12 - 20 mmol/L 11/03/2014 5:10 PM CDT [facility] Blood Venipuncture - L ab Collect / Unknown 11/03/2014 10:00 AM CDT 11/03/2014 11:36 AM CDT Narrative [facility] [place] - 11/03/2014 5:10 PM CDT Effective 04/22/2014, the Alkaline Phosphatase test method and reference range have changed. Please take this into consideration when interpreting results prior to or after this date. [facility] CHEMISTRY ORDERABLES Final Result Performing Organization Address City/[facility]/ZIP Co de Phone Number [facility] CLIA # [id number] [address] [place] [address] * TSH (11/03/2014 10:00 AM CDT) TSH 2.56 0.30 - 4.80 uIU/mL 11/03/2014 5:10 PM CDT [facility] Blood Venipuncture - L ab Collect / Unknown 11/03/2014 10:00 AM CDT 11/03/2014 11:36 AM CDT [facility] Alan DO CHEMISTRY ORDERABLES Final Result Performing Organization Address [facility]/State/ZIP Co de Phone Number [facility] CLIA # [id number] [address] [place] [address] * IRON LEVEL (11/03/2014 10:00 AM CDT) IRON 90 50 - 170 ug/dL 11/03/2014 5:38 PM CDT [facility] Blood Venipuncture - L ab Collect / Unknown 11/03/2014 10:00 AM CDT 11/03/2014 11:36 AM CDT Ml Phillips DO CHEMISTRY ORDERABLES Final Result Performing Organization Address [facility]/ZIP Co de Phone Number [facility] CLIA # [id number] [address] [place] [phone] * (ABNORMAL) HEMOGLOBIN A1C (11/03/2014 10:00 AM CDT) HEMOGLOBIN A1C 7.4(H) 4.5 - 6.2 % 11/03/2014 7:40 PM CDT [facility] EST. AVG GLUCOSE, A1C 166 mg/dL 11/03/2014 7:40 PM CDT [facility] Blood Venipuncture - L ab Collect / Unknown 11/03/2014 10:00 AM CDT 11/03/2014 11:36 AM CDT Ml Phillips DO CHEMISTRY ORDERABLES Final Result [facility] CLIA # [id number] [address] [place] [address] * (ABNORMAL) LIPID PANEL (11/03/2014 10:00 AM CDT) CHOLESTEROL 178 130 - 200 mg/dL 11/03/2014 5:10 PM CDT [facility] TRIGLYCERIDE 76 30 - 200 mg/dL 11/03/2014 5:10 PM CDT [facility] HDL 50 35 - 80 mg/dL 11/03/2014 5:10 PM CDT [facility] LDL CALCULATED 113(H) 0 - 100 mg/dL 11/03/2014 5:10 PM CDT [facility] NON-HDL CHOLESTEROL 128 mg/dL 11/03/2014 5:10 PM CDT [facility] Blood Venipuncture - L ab Collect / Unknown 11/03/2014 10:00 AM CDT 11/03/2014 11:36 AM CDT Narrative [facility] [place] - 11/03/2014 5:10 PM CDT TOTAL CHOLESTEROL mg/dL Desirable <200 Borderline high 200-239 High >=240 TRIGLYCERIDES mg/dL Normal <150 Borderline high 150-199 High 200-499 Very high >=500 HDL CHOLESTEROL mg/dL Low <40 Normal 40-60 Desirable >60 LDL CHOLESTEROL mg/dL Optimal <100 Low risk 100-129 Borderline high 130-159 High 160-189 Very high >=190 NON HDL CHOLESTEROL mg/dL Desirable <130 Borderline high 130-159 High 160-189 Very high >=190 Based on AHA/NCEP Guidelines Ml Phillips DO CHEMISTRY ORDERABLES Final Result [facility] SERVICES [facility] CLIA # [id number] [address] [address] documented in this encounter Visit Diagnoses Not on filedocumented in this encounter Additional Health Concerns Infection Onset Date Last Indicated Resolved Time R/O COVID-19 02/08/2021 02/08/2021 02/09/2021 10:4 9 AM CDT documented as of this encounter Care Teams Captain Waiter/Waitress Relationship Specialty Start Date End Date Ml Phillips DO [address] [place] [address] PCP - General Family Practice 09/11/16 documented as of this encounter
--- OUTSIDE RECORDS SUMMARY | 2025-04-24 11:19 | XMS_ITS | Encounter Summary ---
Author Organization [facility] Address [address] [place] [address] Care Team Providers Care Bss Solution Architect Name Role Phone Ml Phillips Primary Care Provider Reason for Visit * Reason Onset Date Comments Surgical Clearance 11/22/2023 Needs Appointment 11/22/2023 Encounter Details Date Type Department Care Team (Late st Contact Info) Description 11/22/2023 Telephone [facility] [address] [facility] [address] [place] [address] Angie Brothers MD [address] [facility] [address] [place] [phone] Surgical Clearance; Needs Appointment Social History Tobacco Use Types Packs/Day Years [...] on file Legal Sex Female 3:25 AM 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 Please advise [facility] Conductor Orchestra: Radha Carlos documented in this encounter Plan of Treatment Upcoming Encounters Date Type Department Care Team (Late st Contact Info) Description 06/23/2025 10:40 AM PAYROLL REPRESENTATIVE Office Visit [facility] [address] [place] [address] Ml Phillips DO [address] [place] [address] 07/22/2025 10:20 AM PAYROLL REPRESENTATIVE Office Visit [facility] [address] [place] [address] Angie Brothers MD [address] [place] [address] Amara Hall, [facility] [address] [place] [address] documented as of this encounter Visit Diagnoses Not on filedocumented in this encounter Additional Health Concerns Assessment Noted Time PHQ-9 Depression Total Score: 5 09/02/19 10:48 AM PAYROLL REPRESENTATIVE documented as of this encounter Care Teams Bss Solution Architect Relationship Specialty Start Date End Date Ml Phillips DO [address] [place] [address] PCP - General Family Practice 09/11/16 documented as of this encounter
--- OUTSIDE RECORDS SUMMARY | 2025-04-24 11:19 | XMS_ITS | Encounter Summary ---
Author Organization [facility] Address [address] [place] [address] Care Team Providers Care Eyelet Punch Operator Name Role Phone Ml Phillips DO Primary Care Provider Reason for Visit * Reason Onset Date Comments Appointment Notification 10/16/2023 Encounter Details Date Type Department Care Team (Late st Contact Info) Description 10/16/2023 Telephone [facility] [address] [facility] [address] [place] [phone] Angie Brothers MD [address] [facility] [address] [place] [phone] Appointment Notification Social History Tobacco Use Types Packs/Day Years [...] on file Legal Sex Female 3:25 AM MACHINE SPLITTER Gender Identity Not on file Sexual Orientation Not on file documented as of this encounter Miscellaneous Notes * Telephone Encounter - Doris Naranjo - 10/16/2023 10:55 AM MACHINE SPLITTER Zev (Provider) MESSAGE Pt would like to cancel and reschedule appt on 10/16 due to conflict. Pt also states she will need help during appt to set up device on her phone. Please call to reschedule. [facility] Garland Maker: Doris Naranjo INE SPLITTER documented in this encounter Plan of Treatment Upcoming Encounters Date Type Department Care Team (Late st Contact Info) Description 06/23/2025 10:40 AM MACHINE SPLITTER Office Visit [facility] [address] [place] [address] Ml Phillips DO [address] [place] [address] 07/22/2025 10:20 AM MACHINE SPLITTER Office Visit [facility] [address] [place] [phone] Angie Brothers MD [address] [facility] [address] [place] [phone] Amara Hall, [facility] [address] [facility] [address] [place] [address] documented as of this encounter Visit Diagnoses Not on filedocumented in this encounter Additional Health Concerns Assessment Noted Time PHQ-9 Depression Total Score: 5 09/02/19 24 10:48 AM MACHINE SPLITTER documented as of this encounter Care Teams Eyelet Punch Operator Relationship Specialty Start Date End Date Ml Phillips DO [address] [place] [address] PCP - General Family Practice 09/11/16 documented as of this encounter
--- OUTSIDE RECORDS SUMMARY | 2025-04-24 11:19 | XMS_ITS | Encounter Summary ---
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
--- OUTSIDE RECORDS SUMMARY | 2025-04-24 11:19 | XMS_ITS | Encounter Summary ---
Author Organization [facility] Address [address] [facility] Attn: Epic Prelude ADT [place] [address] Care Team Providers Care Medical Territory Manager Name Role Phone Ml Phillips DO Primary Care Provider [phone] Encounter Details Date Type Department Care Team (Late st Contact Info) Description 12/19/1999 Outpatient Historical Tc Gallardo MD NO ADDRESS ON FILE Social History Tobacco Use Types Packs/Day Years Used Date Smoking Tobacco: Never Assessed Comments Unknown Sex and Gender Information Value Date Recorded Sex Assigned at Not on file Legal Sex Female 5:11 AM EMULSION OPERATOR Gender Identity Not on file Sexual Orientation Not on file documented as of this encounter Plan of Treatment Not on file documented as of this encounter Visit Diagnoses Not on filedocumented in this encounter Additional Health Concerns Infection Onset Date Last Indicated Resolved Time R/O COVID-19 02/08/2021 02/08/2021 02/09/2021 10:4 9 AM CDT documented as of this encounter Care Teams Medical Territory Manager Relationship Specialty Start Date End Date Ml Phillips DO [address] [facility] [place] [phone] PCP - General Family Practice 09/11/16 documented as of this encounter
--- OUTSIDE RECORDS SUMMARY | 2025-04-24 11:19 | XMS_ITS | Encounter Summary ---
Author Organization [facility] Address [address] [place] [address] Care Team Providers Care Food Crops Farm Hand Name Role Phone AlanMl velez Primary Care Provider Encounter Details Date Type Department Care Team (Latest Contact Info) Description 01/20/2002 Outpatient Historical [facility] [place] [address] [phone] Meena Miramontes MD [address] [place] [address] NONINFEC GASTROENTERIT NEC (Primary Dx); MELENA, BLOOD IN STOOL Social History Tobacco Use Types Packs/Day Years Used Date Smoking Tobacco: Never Assessed Comments Unknown Sex and Gender Information Value Date Recorded Sex Assigned at Not on file Legal Sex Female 5:11 AM SCOW CAPTAIN Gender Identity Not on file Sexual Orientation Not on file documented as of this encounter Plan of Treatment Not on file documented as of this encounter Visit Diagnoses Diagnosis Other and unspecified noninfectious gastroenteritis and colitis(558.9)- Primary Other and unspecified noninfectious gastroenteritis and colitis Blood in stool documented in this encounter Additional Health Concerns Infection Onset Date Last Indicated Resolved Time R/O COVID-19 02/08/2021 02/08/2021 02/09/2021 10:4 9 AM CDT documented as of this encounter Care Teams Food Crops Farm Hand Relationship Specialty Start Date End Date Ml Phillips DO [address] [place] [phone] PCP - General Family Practice 09/11/16 documented as of this encounter
--- OUTSIDE RECORDS SUMMARY | 2025-04-24 11:19 | XMS_ITS | Clinical Summary ---
Author Organization [facility] [place] Address [address] [place] [address] Care Team Providers Care Rn Telehealth Name Role Phone Ml Phillips Primary Care Provider Allergies Active Allergy Reactions Criticality Noted Date Comments Adhesive Tape-Silicones Rash Low 09/11/2016 Russell Shortness of Breath/Wheezing High 06/18/2023 Reports feeling throat closing Vortioxetine Other (See Comments) 08/27/2019 Patient reported tunnel vision and blurred vision TRINTELLIX Medications OneTouch Delica Plus Lancet 33 gauge USE TO TEST BLOOD SUGAR 100 Each 2 021 Active Additional Information Patient not taking.Reported on 04/15/2025 OneTouch Verio Reflect Meter USE TO TEST BLOOD SUGAR 1 Each 021 Active Additional Information Patient not taking.Reported on 04/15/2025 OTHER Bariatric multivitamin plus collagen and biotin at , receives through the [facility] at [place]. 018 Active QUEtiapine (SEROquel XR) 400 mg Extended Release 24 hour tablet Take 400 mg by mouth daily at bedtime. 022 Active calcium citrate/vitamin D3 (CALCIUM CITRATE + D ORAL) Take 1 Tablet by mouth 2 times daily. 017 Active OneTouch Verio test strips Strip USE TO TEST BLOOD SUGAR ONCE DAILY AND NEEDED 100 Strip 023 Active Additional Information Patient not taking.Reported on 04/15/2025 naloxone (NARCAN) 4 mg/spray Melvin, Non-Aerosol EMERGENCY USE ONLY: Administer 1 spray (4 mg) in one nostril one time. May repeat in alternating nostrils every 2-3 min until responsive or EMS arrives. 2 Each 3 Active biotin 5 mg Capsule Take 5 mg by mouth daily. Active nystatin (MYCOSTATIN) 100,000 unit/gram CreamIndication s:Skin rash Apply toppically TO THE affected AREA TWICE DAILY. 30 Gram 3 Active rizatriptan (MAXALT GRID MOLDER) 10 mg Tablet, Rapid Dissolve Place ONE tablet UNDER TONGUE EVERY TWO hours NEEDED FOR migraine. MAY REPEAT in TWO hours; Max DOSE: 20 MG in 24 hours 12 Tablet 6 Active furosemide (LASIX) 40 mg tablet TAKE ONE TABLET BY MOUTH one time daily needed FOR swelling 90 Tablet 3 Active fexofenadine (SORIN) 180 mg tabletIndicatio ns:Allergic reaction to alpha-gal,Aller gic rhinitis due to other allergic trigger, unspecified seasonality Take 1 Tablet (180 mg) by mouth daily. 30 Tablet 4 025 Active QUEtiapine (SEROquel XR) 50 mg Extended Release 24 hour tablet TAKE ONE TABLET BY MOUTH AT 9 pm with 400 MG tablet, total DOSE 450 MG. Active tirzepatide, weight loss, (Zepbound) 2.5 mg/0.5 mL Pen InjectorIndicat ions:Obesity (BMI 30.0-34.9) Take 2.5mg SQ every 7 days 3 mL 6 025 Active cyclobenzaprine (FLEXERIL) 10 mg tablet TAKE 1 TABLET BY MOUTH 3 TIMES DAILY NEEDED FOR SPASM. 270 Tablet 2 025 Active butalbital-acet aminophen-caffe ine (FIORICET) 50-325-40 mg tabletIndicatio ns:Migraine without aura and without status migrainosus, not intractable TAKE ONE TABLET BY MOUTH EVERY FOUR hours NEEDED FOR migraine. 60 Tablet 2 025 Active fluticasone propionate (FLONASE) 50 mcg/spray Melvin, Suspension nasal inhalerIndicati ons:Environment al allergies SPRAY TWO SPRAYS in each nostrils DAILY. 16 Gram 5 025 Active tiZANidine (ZANAFLEX) 4 mg TabletIndicatio ns:Chronic left-sided low back pain with left-sided sciatica TAKE ONE TABLET BY MOUTH EVERY EIGHT hours NEEDED FOR spasm. 90 Tablet 5 025 Active lactulose (ENULOSE) 10 gram/15 mL oral solutionIndicat ions:Constipati on, unspecified constipation type take 30 ML BY MOUTH DAILY as needed for constipation 300 mL 3 025 Active famotidine (PEPCID) 20 mg tabletIndicatio ns:Allergic reaction to alpha-gal,Aller gic rhinitis due to other allergic trigger, unspecified seasonality TAKE ONE TABLET BY MOUTH DAILY. 90 Tablet 3 025 Active EPINEPHrine (EPIPEN) 0.3 mg/0.3 mL Auto-InjectorIn dications:Aller gy to alpha-gal,Aller gy to almonds Inject 0.3 mL (0.3 mg) by intramuscular injection 1 time daily as needed for Anaphylaxis. 2 Each 025 Active pantoprazole (PROTONIX) 40 mg Tablet, Delayed Release (E.C.)Indicatio ns:Gastroesopha geal reflux disease without esophagitis Take 1 Tablet (40 mg) by mouth daily. 90 Tablet 1 025 Active traMADol (ULTRAM) 50 mg tabletIndicatio ns:Chronic left-sided low back pain with left-sided sciatica Take 1 Tablet (50 mg) by mouth every 6 hours as needed for Pain. Do not fill until 02/02/2025 120 Tablet 025 Active azelastine (ASTELIN) 137 mcg/actuation nasal sprayIndication s:Upper respiratory infection, acute SPRAY TWO SPRAYS in each nostril TWICE DAILY. 30 mL 2 025 Active potassium CHLORIDE (K-DUR,KLOR-CON M20) 20 mEq Extended Release tablet TAKE 1 TABLET BY MOUTH DAILY. 90 Tablet 3 025 Active metoprolol tartrate (LOPRESSOR) 50 mg tabletIndicatio ns:Essential hypertension TAKE ONE AND ONE-HALF TABLETS BY MOUTH 2 TIMES DAILY. 270 Tablet 3 025 Active diclofenac sodium (VOLTAREN) 1 % gelIndications: Chronic left-sided low back pain with left-sided sciatica,Chroni c neck pain Apply FOUR grams TO affected AREA FOUR TIMES DAILY. 100 Gram 2 025 Active oxyCODONE-aceta minophen (PERCOCET) 7.5-325 mg TabletIndicatio ns:Chronic left-sided low back pain with left-sided sciatica Take 1 Tablet by mouth 3 times daily as needed for Pain, Moderate. Do not fill until 04/04/2025 Max Daily Amount: 3 Tablets 90 Tablet 025 Active oxyCODONE-aceta minophen (PERCOCET) 7.5-325 mg TabletIndicatio ns:Chronic left-sided low back pain with left-sided sciatica Take 1 Tablet by mouth 3 times daily as needed for Pain, Moderate. Do not fill until 05/05/2025 Max Daily Amount: 3 Tablets 90 Tablet 025 Active ALPRAZolam (XANAX) 1 mg tabletIndicatio ns:Generalized anxiety disorder TAKE ONE TABLET BY MOUTH AT BEDTIME PRN ANXIETY. DO NOT TAKE AT THE SAME TIME PAIN PILLS. 30 Tablet 025 Active gabapentin (NEURONTIN) 800 mg tablet Take 1 Tablet (800 mg) by mouth 3 times daily. 90 Tablet 6 025 Active ALPRAZolam (XANAX) 1 mg tabletIndicatio ns:Generalized anxiety disorder Take 1 tablet two times daily prn anxiety. Try to wean down to one daily prn anxiety. 60 Tablet 025 2024 Discontinued gabapentin (NEURONTIN) 600 mg tabletIndicatio ns:Chronic left-sided low back pain with left-sided sciatica Take 1 Tablet (600 mg) by mouth 3 times daily. 270 Tablet 3 025 2024 Discontinued predniSONE (DELTASONE) 20 mg tabletIndicatio ns:Fluid level behind tympanic membrane of right ear Take 1 Tablet (20 mg) by mouth daily with breakfast for 5 days. 5 Tablet 025 2024 azithromycin (ZITHROMAX) 250 mg tabletIndicatio ns:Acute TONNY (middle ear effusion), bilateral Take 2 Tablets (500 mg) by mouth daily for 1 day, THEN 1 Tablet (250 mg) daily for 4 days. 6 Tablet 025 2024 Hospital, Clinic, or Other Facility Administered Medication Ordered Dose Route Frequency Start Date End Date Status triamcinolone acetonide (KENALOG-40) injectable suspension 40 mgIndications:Fluid level behind tympanic membrane of right ear 40 mg IM ONE TIME ONLY 04/05/2025 04/05/2025 Ended dexAMETHasone (DECADRON) injection 4 mgIndications:Fluid level behind tympanic membrane of right ear 4 mg IM ONE TIME ONLY 04/05/2025 04/05/2025 Ended Active Problems Problem Noted Date Diagnosed Date Recurrent syncope 12/09/2023 Status post placement of implantable loop record er 12/09/2023 Syncope 08/27/2023 Difficulty swallowing pills 11/06/2022 Obesity (BMI 30.0-34.9) 09/23/2022 Vitamin B12 deficiency (non anemic) 08/01/2022 Essential hypertension 04/28/2022 Gastroesophageal reflux disease without esophagi tis 04/23/2021 Migraine without aura and wi thout status migrainosus, not intractable 02/01/2021 PTSD (post-traumatic stress disorder) 09/25/2019 Mixed obsessional thoughts and acts 09/25/2019 Sinus tachycardia 08/28/2019 Chronic neck pain 11/10/2018 S/P gastric surgery 04/15/2018 Type 2 diabetes mellitus wit hout complication, without long-term current use of insulin 02/13/2018 Postoperative malabsorption 11/28/2017 Generalized anxiety disorder 11/28/2017 History of gastrointestinal ulcer 12/19/2016 Chronic left-sided low back pain with left-sided sciatica 09/24/2016 S/P discectomy for herniated nucleus pulposus Seasonal allergic rhinitis due to pollen 015 Resolved Problems Problem Noted Date Diagnosed Date Resolved Date Severe obesity (BMI 35.0-39. 9) with comorbidity 07/28/2023 09/02/2023 Chest pain 04/13/2020 02/01/2021 Overview (02/10/2021): Added automatically from request for surgery [id number] Morbid obesity with body mas s index (BMI) of 40.0 to 49.9 09/23/2016 10/22/2022 Encounters Date Type Department Care Team Description 04/20/2025 External Device Data ST[facility] ABSTRACTION Provider, Abstract 04/20/2025 External Device Data [facility] ABSTRACTION Provider, Abstract 04/16/2025 Telephone [facility] [address] [place] [address] Ml Phillips, Advice Only; Patient Communication 04/15/2025 4:40 PM CDT Office Visit [facility] [address] [place] [address] HurtadoNovember, MACHINE BINDER STRIPPER Acute TONNY (middle ear effusion), bilateral (Primary Dx); Allergic reaction to alpha-gal 04/15/2025 Nurse Triage [facility] [address] [place] [address] Ml Phillips, 04/09/2025 Refill [facility] [address] [place] [address] Ml Phillips DO Generalized anxiety disorder 04/06/2025 External Device Data [facility] ABSTRACTION Provider, Abstract 04/05/2025 4:20 PM CDT Office Visit [facility] [address] [place] [address] November, MACHINE BINDER STRIPPER Fluid level behind tympanic membrane of right ear (Primary Dx) 04/05/2025 Nurse Triage [facility] [address] [place] [address] Ml Phillips, 03/23/2025 10:40 AM CDT Office Visit [facility] [address] [place] [address] Ml Phillips, Chronic left-sided low back pain with left-sided sciatica (Primary Dx); Screening mammogram, encounter for; Type 2 diabetes mellitus without complication, without long-term current use of insulin; Essential hypertension; Generalized anxiety disorder; Migraine without aura and without status migrainosus, not intractable; Postoperative malabsorption; PTSD (post-traumatic stress disorder); Gastroesophageal reflux disease without esophagitis; Vitamin B12 deficiency (non anemic); Chronic neck pain; Incisional pain 03/16/2025 [facility] [address] [place] [address] Ml Phillips, DO Chronic left-sided low back pain with left-sided sciatica; Chronic neck pain 03/12/2025 [facility] [address] [place] [address] Ml Phillips, DO Chronic left-sided low back pain with left-sided sciatica 03/04/2025 [facility] [address] [place] [address] Ml Phillips, DO Generalized anxiety disorder 03/04/2025 [facility] [address] [place] [address] Ml Phillips, DO Chronic left-sided low back pain with left-sided sciatica 03/02/2025 [facility] [address] [place] [address] Ml Phillips, DO Chronic left-sided low back pain with left-sided sciatica 02/22/2025 [facility] [address] [place] [address] Ml Phillips, DO Obesity (BMI 30.0-34.9) 02/15/2025 [facility] [address] [place] [address] Ml Phillips, DO Essential hypertension 02/15/2025 [facility] [address] [place] [address] November, MACHINE BINDER STRIPPER Upper respiratory infection, acute 02/01/2025 [facility] [address] [place] [address] Ml Phillips, DO Generalized anxiety disorder 02/01/2025 [facility] [address] [place] [address] Ml Phillips, Chronic left-sided low back pain with left-sided sciatica from Last 3 Months Family History Medical History Relation Name Comments COPD Brother Healthy Daughter Breast Cancer Maternal Grandmother Mayte Chavez Ovarian Cancer Mother Cancer - Other Sister 1 bladder Healthy Sister 1 Cancer - Other Sister 2 Leonel Corona Other Sister 2 Leonel Corona Other Son Jose Rosen Colon Cancer Neg Hx Relation Name Status Comments Brother Alive Daughter Alive Father Maternal Grandfather Maternal Grandmother Mayte Chavez Mother Paternal Grandfather Paternal Grandmother Sister 1 Sister 2 Leonel Corona Alive Son Jose Rosen Alive Social History Tobacco Use Types Packs/Day Years Used Date Smoking Tobacco: Never Passive Smoke Exposure: Never Smokeless Tobacco: Never Tobacco Cessation:Counseling Given: No Alcohol Use Standard Drinks/Week Comments No 0 (1 standard drink = 0.6 oz pur e alcohol) Feeling Safe Answer Date Recorded Are you in a relationship wi th someone who hurts you emotionally and/or physically? No 09/23/2023 Comments No Sex and Gender Information Value Date Recorded Sex Assigned at Not on file Legal Sex Female 3:25 AM SCROLL SAW OPERATOR Gender Identity Not on file Sexual Orientation Not on file Last Filed Vital Signs Vital Sign Reading Time Taken Comments Blood Pressure 110/64 04/15/2025 4:29 PM CDT Pulse 133 04/15/2025 4:29 PM CDT Temperature 37.1 C (98.7 F) 04/15/2025 4:29 PM CDT Respiratory Rate 18 04/15/2025 4:29 PM CDT Oxygen Saturation 90% 04/15/2025 4:29 PM CDT Inhaled Oxygen Concentration - - Weight 73.9 kg (163 lb) 04/15/2025 4:29 PM CDT Height 157.5 cm (5' 2 ) 04/15/2025 4:29 PM CDT Body Mass Index 29.81 04/15/2025 4:29 PM CDT Plan of Treatment Upcoming Encounters Date Type Department Care Team (Late st Contact Info) Description 06/23/2025 10:40 AM SCROLL SAW OPERATOR Office Visit [facility] [address] [place] [address] Ml Phillips, [address] [place] [address] 07/22/2025 10:20 AM SCROLL SAW OPERATOR Office Visit [facility] [address] [facility] [address] [place] [address] Angie Brothers MD [address] [facility] [address] [place] [address] Amara Hall, CAREER SERVICES DIRECTOR-STROKE PROGRAM COORDINATOR [address] [facility] [address] [place] [address] Health Maintenance Due Date Last Done Comments DTAP/TDAP/TD VACCINES (1 - Tdap) 1994 HEPATITIS B VACCINES (1 of 3 - 19+ 3-dose series) 1994 COLORECTAL SCREENING 2020 Colorectal Cancer Screening 2020 FIT-DNA Q 3 years 2020 FIT/FOBT Q 1 year 2020 Flex Sig/CT Colonography Q 5 years 2020 Preventative Visit-Managed Medicaid 07/17/2024 07/16/2023 DIABETES ANNUAL FOOT EXAM 10/27/20242023, 09/02/2023, 07/26/2023, Additional history exists DIABETES HBA1C Q 6 MONTHS 11/26/20242023, 04/26/2023, 07/20/2022, Additional history exists BREAST CANCER SCREENING 12/22/2024 12/23/19 24, 11/29/2023, 03/24/2021, Additional history exists INFLUENZA VACCINE (#1) 2025 4, 09/19/2023, 08/20/2019, Additional history exists DIABETES: A1C (Auto Order) 05/28/202505/28, 04/26/2023, 07/20/2022, Additional history exists LDL CHOLESTEROL ANNUAL 06/26/2025 4, 06/21/2023, 04/26/2023, Additional history exists DIABETES ANNUAL RETINAL EXAM 07/08/2025 07/08/2024, 07/20/2021 DIABETES MICROALBUMIN ANNUAL SCREEN 08/04/2025 08/04/2024, 09/25/2019 Medical Devices Implanted Type Area Loss Prevention Detective Device Identifier Shelf Expiration Date Model / Serial / Lot Disc Per Sandro - Monitor Heart Linq Ii Icm Reveal Cardiac [id number] - Old - [id number] Implanted:Qty: 1 on 09/23/2023 by Angie Brothers MD at [facility] Cardiovascular Device Left: Chest MEDTRONIC- CARD RHYTHM MGMT 11/09/2024 [id number] / [id number] / [id number] Procedures Procedure Name Priority Date/Time Associated Diagnosis Comments MICROALBUMIN/CREATIN INE RATIO, RANDOM UR Routine 08/04/2024 4:00 PM SCROLL SAW OPERATOR Type 2 diabetes mellitus without complication, without long-term current use of insulin ([facility]) HM DIABETES EYE EXAM Routine 07/08/2024 12:38 PM SCROLL SAW OPERATOR LIPID PANEL Routine 06/26/2024 HEMOGLOBIN A1C Routine 05/28/2024 4:20 PM CDT Type 2 diabetes mellitus without complication, without long-term current use of insulin ([facility]/H[facility]) MAMMO DIAG UNI RIGHT 3D THEA W OR WO CAD Routine 12/23/2023 1:46 PM CDT Inconclusive mammogram from Last 3 Months or Most Recently Relevant to Health Maintenance Results * (ABNORMAL) MICROALBUMIN/CREATININE RATIO, RANDOM UR (08/04/2024 4:00 PM SCROLL SAW OPERATOR) Creatinine, Urine 15(L) 20 - 275 mg/dL [email or web address] MICROALBUMIN, URINE <0.2 See Note: mg/dL [facility] Comment: Reference Range: Reference Range Not established MICROALBUMIN/CREAT RATIO, UR NOTE <30 mg/g creat [facility] Comment: NOTE: The urine albumin value is less than 0.2 mg/dL therefore we are unable to calculate excretion and/or creatinine ratio. The ADA defines abnormalities in albumin excretion as follows: Albuminuria Category Result (mg/g creatinine) Normal to Mildly increased <30 Moderately increased 30-299 Severely increased > OR = 300 The ADA recommends that at least two of three specimens collected within a 3-6 month period be abnormal before considering a patient to be within a diagnostic category. Test Performed at: [facility] [address] [place] [address] Omid Soto MD Urine URINE SPECIMEN OBTAINED BY CLEAN CATCH PROCEDURE / Unknown 08/04/2024 4:00 PM SCROLL SAW OPERATOR 08/05/2024 3:24 AM SCROLL SAW OPERATOR [facility] URINE ORDERABLES Final Result [facility] [phone] [facility] [address] [place] [address] * DIABETES EYE EXAM (07/08/2024 12:38 PM SCROLL SAW OPERATOR) us Abstract Provider HEALTH MAINTENANCE Edited Resu lt - Final * LIPID PANEL (06/26/2024) ABSTRACTED CHOLESTEROL 163 ABSTRACTED TRIGLYCERIDE 137 ABSTRACTED HDL 62 ABSTRACTED LDL CALCULATED 77 Blood 06/26/2024 us Abstract Provider CHEMISTRY ORDERABLES Final Res ult * (ABNORMAL) HEMOGLOBIN A1C (05/28/2024 4:20 PM CDT) HEMOGLOBIN A1C 6.3(H) <5.7 % of total Hgb [facility] Comment: For someone without known diabetes, a hemoglobin A1c value between 5.7% and 6.4% is consistent with prediabetes and should be confirmed with a follow-up test. For someone with known diabetes, a value <7% indicates that their diabetes is well controlled. A1c targets should be individualized based on duration of diabetes, age, comorbid conditions, and other considerations. This assay result is consistent with an increased risk of diabetes. Currently, no consensus exists regarding use of hemoglobin A1c for diagnosis of diabetes for children. ESTIMATED AVERAGE GLUCOSE (MG/DL) 134 mg/dL [facility] ESTIMATED AVERAGE GLUCOSE (MMOL/L) 7.4 mmol/L [facility] Comment: FASTING:NO FASTING: NO Test Performed at: [facility] [address] [place] [address] Omid Soto MD Blood 05/28/2024 4:20 PM CDT 05/28/2024 4:21 PM CDT us Ml Phillips DO CHEMISTRY ORDERABLES Final Result [facility] [phone] [facility] [address] [place] [address] * (ABNORMAL) MAMMO 3D THEA DIAGNOSTIC UNI RT 3D W OR WO CAD (12/23/2023 1:46 PM CDT) Anatomical Region Laterality Modality Breast Right Mammography 12/23/2023 12:2 6 PM CDT Impressions 12/25/2023 8:56 AM CDT IMPRESSION: 1. Single view asymmetry in the lower outer right breast with no sonographic abnormality. Short interval follow-up is necessary with a right diagnostic mammogram in May 2024. BI-RADS ASSESSMENT: 3 - Probably Benign RECOMMENDATION: Interval follow-up is recommended The patient was given verbal and written results and recommendations by the technologist. [id number] Narrative 12/25/2023 8:56 AM CDT EXAM: MAMMO 3D THEA DIAGNOSTIC UNI RT 3D W OR WO CAD, MAMMO BREAST US RIGHT LTD INDICATION: 48-year-old asymptomatic woman with a strong family history of breast and ovarian cancer who returns for additional imaging of an asymmetry seen in the right breast on screening mammogram. COMPARISON: November 29, 2023 and previous exams dating back to August 24, 2010. BREAST COMPOSITION: The breasts are almost entirely fatty. DIAGNOSTIC RIGHT MAMMOGRAM The previously seen asymmetry near the 8:00 location, 4 cm from the nipple in the anterior depth predominantly effaces. Ultrasound will be performed. There are no suspicious calcifications or areas of distortion. ULTRASOUND RIGHT BREAST: A limited ultrasound was performed with real-time scanning from the 7:00 to the 9:00 location. No solid or cystic masses are seen. The axilla was also scanned and demonstrates sonographically normal axillary lymph nodes. Procedure Note Era Fuentes MD - 12/25/2023 EXAM: MAMMO 3D THEA DIAGNOSTIC UNI RT 3D W OR WO CAD, MAMMO BREAST US RIGHT LTD INDICATION: 48-year-old asymptomatic woman with a strong family history of breast and ovarian cancer who returns for additional imaging of an asymmetry seen in the right breast on screening mammogram. COMPARISON: November 29, 2023 and previous exams dating back to August 24, 2010. BREAST COMPOSITION: The breasts are almost entirely fatty. DIAGNOSTIC RIGHT MAMMOGRAM The previously seen asymmetry near the 8:00 location, 4 cm from the nipple in the anterior depth predominantly effaces. Ultrasound will be performed. There are no suspicious calcifications or areas of distortion. ULTRASOUND RIGHT BREAST: A limited ultrasound was performed with real-time scanning from the 7:00 to the 9:00 location. No solid or cystic masses are seen. The axilla was also scanned and demonstrates sonographically normal axillary lymph nodes. IMPRESSION: 1. Single view asymmetry in the lower outer right breast with no sonographic abnormality. Short interval follow-up is necessary with a right diagnostic mammogram in May 2024. BI-RADS ASSESSMENT: 3 - Probably Benign RECOMMENDATION: Interval follow-up is recommended The patient was given verbal and written results and recommendations by the technologist. [id number] Meena Nelson Haim DIRECTOR [employer] MAMMO ORDERABLES Final Resu lt from Last 3 Months or Most Recently Relevant to Health Maintenance Insurance [place] * Guarantor: PAULA RAMIREZ Account Type Relation to Patient Date of Phone Billing Address Personal/Family [address] [place] [address] RX INFOCROSSING Medicaid Advance Directives For more information, please contact: [phone] * Full Code (Latest Code Status on File) Date Activated Date Inactivated Comments 09/23/2023 10:10 AM 09/23/2023 12:48 PM * Full Code Date Activated Date Inactivated Comments 09/23/2023 6:43 AM 09/23/2023 10:10 AM Care Teams Rn Telehealth Relationship Specialty Start Date End Date Ml Phillips DO [address] [place] [address] PCP - General Family Practice 09/11/16
[2025-04-24] MEDS: norepinephrine 4 MG/250 ML BAG 30 MG IV (11:33)
--- NOTE | 2025-04-24 12:05 | W.ED.CPR ---
HPI - CPR General: Chief Complaint: Cardiac Arrest/CPR Stated Complaint: CPR Time Seen by Provider: 04/24/25 11:15 History of Present Illness: 49-year-old female with a history of anxiety, depression, chronic pain and hypertension who presents to the emergency room by ambulance as a CODE BLUE. Family had found her slumped over on the toilet. When EMS got there she had a thready pulse. Ultimately the an LMA was placed and CPR was done intermittently on the way here. Pulse was regained several times briefly. She was having active CPR when she arrived. Related Data Home Medications ?Medication ?Instructions ?Recorded ?Confirmed cetirizine 10 mg tablet (All Day 10 mg PO DAILY 09/17/19 03/10/25 Allergy (cetirizine)) gabapentin 600 mg tablet 600 mg PO BID 09/17/19 03/10/25 biotin 10,000 mcg capsule 10,000 mcg PO BID 10/16/19 03/10/25 multivitamin 1 tab PO QAM 10/16/19 03/10/25 ascorbic acid 125 mg-collagen, 1 cap PO BID 06/15/20 03/10/25 hydrolyzed 740 mg capsule (Collagen Plus Vitamin C) calcium 315 mg (as 1 tab PO DAILY 06/15/20 03/10/25 citrate)-vitamin D3 5 mcg (200 unit) tablet (Calcium Citrate + D) diclofenac sodium 1 % topical gel 2 gm topical QID PRN Pain 06/15/20 03/10/25 nystatin 100,000 unit/gram topical 1 applic topical QID 06/15/20 03/10/25 powder (Nystop) potassium chloride 20 mEq 20 meq PO DAILY 06/15/20 03/10/25 tablet,extended release tizanidine 4 mg capsule 4 mg PO TID PRN Muscle Pain 06/15/20 03/10/25 alprazolam 1 mg tablet 1 mg PO TID PRN Anxiety 09/13/22 03/10/25 cyclobenzaprine 5 mg tablet 10 mg PO TID PRN Muscle Pain 09/13/22 03/10/25 furosemide 20 mg tablet 20 mg PO QAM 04/10/23 03/10/25 tramadol 50 mg tablet 50 mg PO TID PRN 09/03/23 03/10/25 metoprolol tartrate 25 mg tablet 25 mg PO BID 10/10/23 03/10/25 misoprostol 100 mcg tablet 100 mcg PO QID 10/10/23 03/10/25 pantoprazole 40 mg tablet,delayed 40 mg PO DAILY 10/10/23 03/10/25 release oxycodone 10 mg tablet 10 mg PO QID PRN 10/26/24 03/10/25 tirzepatide (weight loss) 5 mg/0.5 mg SUBCUT Q7D 12/28/24 03/10/25 mL subcutaneous pen injector (Zepbound) Previous Rx's ?Medication ?Instructions ?Recorded acetylcysteine 600 mg capsule 600 mg PO BID #60 caps 10/26/24 quetiapine 300 mg tablet,extended 600 mg (2 x 300 mg) PO .9 pm #60 12/28/24 release 24 hr tabs Allergies Allergy/AdvReac Type Severity Reaction Status Date / Time almond Allergy Severe ALGY-Anaphy Verified 03/10/25 13:18 laxis vortioxetine (From Allergy Severe ADR-Halluci Verified 03/10/25 13:18 Trintellix) nating adhesive AdvReac Intermediate Swelling & Verified 03/10/25 13:18 redness, Blistering alpha gal Allergy Severe ADR-Abdominal Uncoded 03/10/25 13:18 Pain Review of Systems General: Reports: ROS unobtainable due to endotracheal tube and ROS unobtainable due to medical condition PFS ED PFSH: Medical History (Updated 04/24/25 @ 12:23 by Sepideh Borges MD) Borderline personality disorder Obsessive-compulsive disorder with good or fair insight Excoriation (skin-picking) disorder Chronic post-traumatic stress disorder Generalized anxiety disorder Major depressive disorder, recurrent severe without psychotic features Family History Other CAD (coronary artery disease) Cancer Diabetes Hypertension Lung disease Social History Smoking and tobacco/nicotine status: never used tobacco/nicotine Second hand smoke exposure: No Alcohol intake: never Substance/Drug Use: never Adopted: No Caregiver/support person: No Lives independently: Yes Household members: none Housing: Manufactured/Mobile home Marital status: Marital status details: but for years Number of children: 2 Number of grandchildren: 0 Highest education level completed: Associate Degree: Occupational, Technical, Vocational Program service: No Current occupational status: disabled Current occupational exposures/hazards: No Pets and animals: Yes Pets & animals: dog(s) Leisure activites: music, reading and other Sexually active: No Do you think of yourself as: Straight/Heterosexual Current gender identity: Female Belkys/Scientologist: None Special belkys needs: No Agree to transfusion: Yes Female Reproductive History: Para: 2 Spontaneous abortions: Yes Physical Exam Narrative: EXAM NARRATIVE: General: ill appearing, Skin: pale Head: Normocephalic, atraumatic. Neck: trachea midline. Eye: pupils fixed and dilated Ears, nose, mouth and throat: ETT in place Cardiovascular: No palpable pulse. Respiratory: coarse, equal, mechanically ventilated. Gastrointestinal: Soft, Non distended Musculoskeletal: no deformity. Neurological: non responsive. Psychiatric: unable to evaluate. MDM - Cardiac Arrest/CPR Medical Decision Making Medical decision making: Differential diagnosis including but not limited to and based on the above HPI, review of systems and physical exam: In this patient who went unresponsive, bradycardic then lost pulse and has had PEA and asystole with suspect either a DVT or a myocardial infarction that would have caused this. No indication of any strokelike symptoms. She said she was dizzy and not feeling well before. EMS reports no pulse on their arrival. CPR had been going off and on for almost an hour prior to arrival and for almost 40 minutes after arrival. She had 2-3 very brief episodes where she had a thready pulse and went back to PEA but primarily was in asystole while she was here. Oxygen saturations were in the mid 50s on an LMA so I did remove this and intubate her and her sats got up into the mid 80s for the remainder of CPR. See nursing notes for full details on medication administration and of the code. I spoke with the family several times. With CPR having gone on for over an hour and a half off and on explained to them multiple times that there was no hope for any kind of meaningful recovery and that we need to stop. Initially and understandably given her young age they were not willing to accept this. Had them come back to the room while CPR was being performed and ultimately they agreed that we did need to stop CPR. Time of was 11:49 AM. This is on April 24, 2025 Assessment and plan: Cardiac arrest ? CPR and medications given by ACLS guidelines. No radiology studies performed this visit Discharge Plan Discharge Patient Disposition: Clinical Impression: Cardiac arrest, , Respiratory failure Coding Level of Care Code ED Carding Utility Tender for Soniya Chacon
--- NOTE | 2025-04-24 12:34 | PC.NURSE ---
CODE RECORD: CPR @ 1115 EPI @ 1117 PULSE CHECK @ 1118 NO PULSE PULSE CHECK @ 1120 NO PULSE EPI @ 1121 PULSE CHECK @ 1122 BICARB @ 1122 INTUBATED @ 1123 8.0 25@ LIP PULSE CHECK @1124 NO PULSE EPI @ 1125 PULSE CHECK @ 1126 NO PULSE PULSE CHECK @ 1128 NO PULSE PULSE CHECK @ 1130 EPI @ 1130 PULSE CHECK 1132 PULSE 107 EPI @ 1134 CPR RESUMED @ 1136 PULSE CHECK 1138 EPI @ 1139 PULSE CHECK 1141 NO PULSE PULSE CHECK @ 1144 NO PULSE EPI @ 1144 PULSE CHECK @ 1146 NO PULSE PULSE CHECK @ 1148 NO PULSE EPI 1149 PULSE CHECK 1149 PT CALLED
--- NOTE | 2025-04-24 13:14 | PC.PHAR ---
Family brought back pack with pts' medication bottles. Finished identifying all rx bottles and otc vitamins and supplements-I did not get med rec completed prior to expiring.
--- NOTE | 2025-04-24 14:59 | PC.NURSE ---
two pairs of earrings and necklace sent with patient to [facility]. family took home rings from both hands ( and daughter)
--- NOTE | 2025-04-24 18:05 | PC.NURSE ---
MTS contacted about pts at 1210. PT was placed in the morgue at 1518 after family left the bedside.
--- NOTE | 2025-04-24 21:40 | PC.NURSE ---
MTS [facility] contacted for update - no contact made with family. Do not release body yet.
--- NOTE | 2025-04-25 00:30 | PC.NURSE ---
0030 MTS Per [facility] coordinator, family refused donation services. Body can be released to home. 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
--- NOTE | 2025-04-25 10:08 | PC.NURSE ---
Pts body was picked up by [facility] [place] at this time
== END 2025-04-24 15:18 | disposition expired ==
PROVIDERS: Emergency Provider Emergency Medicine; PCP Family Medicine
DX: I46.9 Cardiac arrest, cause unspecified (principal); J96.90 Respiratory failure, unspecified, unspecified whether with hypoxia or hypercapnia
CPT/HCPCS: 94799; 96374; 96375; 99291; J0169; J9999